=== PATIENT | male | born 1945 | race Caucasian/White ===

== ENCOUNTER 2018-08-11 13:25 | Inpatient (IN) ==
[2018-08-11] MEDS ORDERED: NS 1,000 ML IV SCH (16:15)
[2018-08-11] MEDS ORDERED: ZOFRAN IV PRN (16:15)
[2018-08-11] MEDS ORDERED: DUONEB (A & A) INH PRN (16:18)
[2018-08-11] MEDS ORDERED: LEVOPHED 8 MG in D5 1/2 NS 250 ML IV SCH (16:30)
[2018-08-11] MEDS ORDERED: ZYVOX 600 MG/D5W 600 MG/300 ML IVPB IV SCH (17:00)
--- NOTE | 2018-08-11 17:09 | Diag Imaging Result Doc PS360 ---
EXAM: CHEST-PORTABLE HISTORY: Pneumonia TECHNIQUE: 06/24/2018 COMPARISON: None. FINDINGS: The lungs are well expanded. The heart is not enlarged. The vessels are not distended. There are dense infiltrates in the mid and lower left lung and in the mid right lung. There are smaller infiltrates in the right lung base. No effusion identified. IMPRESSION: Bilateral pneumonia I'v Electronically signed by Alfie Mustafa 08/11/2018 5:07 PM
[2018-08-11 17:11] LABS: INR 1.73; PROTIME 21.5 Seconds (11.0-16.0)
[2018-08-11 17:12] LABS: PTT 41.5 Seconds (22.3-41.8)
[2018-08-11 17:15] LABS: BASO# 0.02 X1000 (0.0-0.2); BASO% 0.1 % (0.0-0.8); EOS# 0.04 X1000 (0.0-0.7); EOS% 0.1 % (0.0-10.0); HEMATOCRIT 28.9 % (42.0-52.0); IMM GRAN# 0.45 X1000 (0.0-0.04); IMM GRAN% 1.6 % (0.0-0.5); LYMPH# 0.78 X1000 (1.2-3.4); LYMPH% 2.8 % (20.5-51.1); MCH 20.2 PG (27-31); MCHC 27.7 g/dL (33-37); MCV 72.8 FL (81-99); MONO# 1.34 X1000 (0.11-0.59); MONO% 4.8 % (1.7-9.3); MPV 8.9 FL (7.4-10.4); NEUT# 25.18 X1000 (1.4-6.5); NEUT% 90.6 % (42.2-75.2); PLT 572 X1000 (130-400); RBC 3.97 XMIL (4.7-6.1); RDW 20.6 % (11.5-14.5); WBC 27.81 X1000 (4.8-10.8)
[2018-08-11] MEDS ORDERED: VANCOMYCIN 1 GM/NS 1 GM/250 ML IVPB IV ONE (17:20)
[2018-08-11 17:24] LABS: MAGNESIUM 1.9 mg/dL (1.5-2.7)
[2018-08-11] MEDS ORDERED: VANCOMYCIN IV PER PHARMACY MISC SCH (17:30)
[2018-08-11 18:07] LABS: ALLEN TEST YES; BE 3.1 mmoll (-3.0-3.0); BLOOD TYPE ARTERIAL; HCO3-(ACT) 27.3 mmoll (20.0-26.0); METHB 1.2 % (0.0-1.5); O2(CT) 10.5 mL/dL (15.0-23.0); O2HB 90.2 % (95.0-99.0); PCO2(98.6) 36 mmHg (35-45); PO2(98.6) 59 mmHg (60-100); SAMPLE BLOOD; SAO2 93.9 % (95.0-100.0); THB 8.2 g/dL (11.5-17.4); pH(98.6) 7.48 (7.35-7.45)
[2018-08-11 18:09] LABS: MODALITY CANNULA
[2018-08-11 18:20] LABS: ANISOCYTOSIS 3+; BANDS 2 % (0-1); LYMPHS 2 % (21-51); MONO 2 % (1-9); SEGS 94 % (42-75)
[2018-08-11 18:21] LABS: HYPOCHROM 3+; MICROCYTOSIS 1+; TARGET CELLS 1+
[2018-08-11] MEDS: AZACTAM 2 GM in NS 100 ML IV SCH (18:29)
[2018-08-11] MEDS: NS 1,000 ML IV SCH (18:30)
[2018-08-11] MEDS: ZYVOX 600 MG/D5W 600 MG/300 ML IVPB IV SCH (18:36)
[2018-08-11 18:38] LABS: URINE SOURCE CATH
[2018-08-11 18:44] LABS: BILIRUBIN URINE NEGATIVE (NEGATIVE); BLOOD URINE MODERATE (NEGATIVE); COLOR YELLOW; GLUCOSE URINE NEGATIVE (NEGATIVE); KETONE URINE NEGATIVE (NEGATIVE); LEUKOCYTES URINE LARGE (NEGATIVE); NITRITE URINE NEGATIVE (NEGATIVE); PH URINE 6.5; PROTEIN URINE 100 mg/dL (NEGATIVE); TURBIDITY URINE HAZY (CLEAR); UROBILINOGEN URINE NORMAL (NORMAL)
[2018-08-11 18:47] LABS: UR EPITHELIAL CELLS <10 /HPF (<10); URINE BACTERIA 4+ /HPF; URINE RBC TNTC /HPF (<10); URINE WBC TNTC /HPF (<10)
[2018-08-11 18:57] LABS: URINE CRYSTALS CA OXALATE PRESENT; URINE YEAST NONE SEEN
[2018-08-11] MEDS: ATROVENT NEB INH SCH ×2 (19:24→23:08)
[2018-08-11] MEDS: XOPENEX NEB INH SCH ×2 (19:24→23:08)
[2018-08-11] MEDS: PULMICORT INH SCH (19:24)
[2018-08-11] MEDS ORDERED: DUONEB (A & A) INH SCH (19:30)
--- NOTE | 2018-08-11 19:32 | INFECTIOUS DISEASE CONSULT REP ---
DATE: 08/11/2018 CONCLUSION: Mr. Schulte has bilateral pneumonia with dense infiltrates seen on chest x-ray. There is a leukocytosis, and he is having increased drainage and size to his buttock ulcers. There is a fungal dermatitis noted to his bilateral groin and anterior upper thigh areas. RECOMMENDATIONS: We agree with the use of aztreonam 2 g IV every 8 hours, and Zyvox 600 mg IV every 12 hours. We have taken wound cultures of the left hip and the decubitus ulcers to his buttocks. We will also order clotrimazole cream to be applied to the reddened areas to his groin b.i.d. These plans have been discussed with and recommended by Dr. Guevara. DISCUSSION: Mr. Schulte has an extensive and complicated medical history which mainly started with a dissecting aortic aneurysm. He suffered an infarct during the repair of that dissection, and has been paraplegic from the waist down ever since. We have treated him in the office multiple times for left hip osteomyelitis, as well as for the wounds to his buttocks. At this point, those wounds are larger and have more drainage than was last seen on his visit to our office. REVIEW OF SYSTEMS: Constitutional: He denies any recent fever or weight changes, but has had a decrease in appetite. Endocrine: He denies any diabetes or thyroid disorders. Cardiovascular: He denies any coronary artery disease history, chest pain, or palpitations. He does have a history of atrial fibrillation, and is on chronic Xarelto and Amiodarone. Respiratory: He has had pneumonia in the past. Some mild shortness of breath with a mild cough that started in the last couple of days. Abdomen: He has a colostomy which was put in for diversion in order to protect his sacral wound. Yesterday, he started having some diarrhea. Positive for gastroesophageal reflux disease. : He has had urinary tract infections and there is a suprapubic catheter in place with a bedside bag. He denies any bladder spasms or feeling to the tract. Integumentary: There are 3 separate wounds to the buttocks area, some of which have extensive tracking. There is also a left hip incision from previous surgery which is draining. These have gotten worse per patient's . He has had a fungal rash around the scrotum and upper thighs for about a week. Musculoskeletal: Right hip is externally rotated with bilateral footdrop. He denies any pain from the waist down; however, he states that the area of the scar in his back is often painful. He does use a TENS unit at home for back pain. No upper extremity pain or joint problems. He is weaker than usual in his upper extremities. Psychiatric: He denies a history of any depression or anxiety; however, he is taking an antidepressant. Hematology/Oncology: No history of cancer or blood transfusions. PAST MEDICAL HISTORY: 1. 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 2. Chronic atrial fibrillation with Xarelto and Amiodarone. 3. Recurrent left hip osteomyelitis. 4. Hyperlipidemia. 5. Gastroesophageal reflux disease. 6. Multiple pressure ulcers to the sacrum and gluteal folds. 7. Chronic obstructive pulmonary disease, with 60 pack year smoking history. PAST SURGICAL HISTORY: 1. Suprapubic catheter insertion. 2. Aortic dissection repair. 3. Multiple left hip drain placements. 4. Left tibial fracture repair. 5. Tonsillectomy. 6. Diverting colostomy. 7. LASIK. 8. Bilateral cataracts. INFECTIOUS DISEASE: He does have a history of pneumonia, urinary tract infection, and a previous history of methicillin-resistant Staphylococcus aureus, although he and his do not remember where that MRSA grew. SOCIAL HISTORY: He lives at home with his , daughter, son-in-law, and 3 grandchildren. He quit smoking in 2011 and has a 60 pack-year smoking history. His is very supportive and helpful, and changes his bandages and packs his wounds daily. He also has home health visits twice a week. No alcohol or illicit drug use. FAMILY HISTORY: His brother has coronary artery disease and is s/p CABG. LABORATORY AND X-RAY: Today, his white count is 27.81, hemoglobin 8, platelet count 572,000. Creatinine has not yet been resulted; however, a creatine kinase is 8. His blood gas today showed a pH of 7.48, pCO2 36, pO2 59, HC03 27.3, on 5 L nasal cannula. Previously, his left buttock and left hip wounds had grown the same Enterobacter cloacae and Enterococcus faecalis. Blood and wound cultures from this admission are pending. Chest x-ray today shows bilateral pneumonia with dense infiltrates in the mid and lower left lung and in the mid right lung. ALLERGIES: Zosyn causes swelling. MEDICATIONS: Home medications most recently include: 1. Cordarone. 2. Finasteride. 3. Xarelto. 4. Carafate. 5. Gabapentin. 6. Oxybutynin. 7. Omeprazole. 8. Tessalon Perles. 9. Singulair. 10. Lexapro. 11. Fluconazole. 12. OTC vitamins. PHYSICAL EXAMINATION: Vital Signs: Temperature is 98.7 degrees, pulse rate 98, respiratory rate 21, blood pressure 89/57, and O2 saturation is 92% on 5 L nasal cannula. General: This is a chronically ill-appearing, elderly gentleman. He is lying in the bed currently in no acute distress. HEENT: Atraumatic, normocephalic. Oral mucous membranes are pink and moist. Conjunctivae are pale. Neck: Supple. Trachea is midline. Cardiovascular: Normal sinus rhythm with occasional PAC's on the monitor. Respiratory: Lung sounds are clear in the upper lobes, diminished in the bases. Abdomen: Soft, round. Bowel sounds are active. There is a colostomy in place with brown soft stool noted in the bag. Integumentary: Skin is cool, dry, and pale. Sacral wounds are erythematous and draining some serosanguineous fluid. The left hip wound is clean along the incision line without erythema, but there is depth and packing with bloody drainage noted. : There is a suprapubic catheter. The site is without edema or erythema. No purulent drainage noted. Neurologic: He is awake, alert, and appropriate, but forgetful. Upper extremities have some mild, generalized weakness. Paraplegia from the waist down. Thank you for allowing us to see Mr. Schulte. Dictated by ANILA Bowman for Adán Guevara MD This chart was documented by, ANILA Bowman and accurately reflects the services performed, treatment plan and medical decisions as attested by the providers signature Adán Guevara MD. cc: Adán Guevara MD [facility]
[2018-08-11] MEDS: LOTRIMIN 1% CREAM TOP SCH (21:13)
--- NOTE | 2018-08-11 21:54 | HISTORY AND PHYSICAL ---
ADDENDUM: The patient was seen and examined by me [id number]. Physical exam has been done by me and the nurse practitioner. Vital signs were reviewed. I do not have an x-ray or lab work at this moment, but this patient has been short of breath and coughing for the past 2 days. At this moment, he is on nasal cannula 4 L. His is at the bedside. As per the , all of the symptoms started yesterday with cough, shortness of breath, and weakness. He went to [facility] and apparently they did a CT scan that showed pneumonia, so they transferred this patient to [facility], and he was placed in the intensive care unit. He has been placed on aztreonam and Zyvox. I will order a consult by Infectious Disease Department and wound care. On my physical exam, he shows some coarse breath sounds bilaterally, probably some rhonchi at the bases. His abdomen is soft. He has an ostomy bag with liquid stools. Apparently, he has been having diarrhea since yesterday as well. As per the , his urine output has been stable, but she noticed some blood yesterday and the day before yesterday, but not today. Today, the urine looks clear. We will start this patient on a diet, full liquid diet. We will put this patient on antibiotics, IV fluids. We will get a full lab work and x-ray. Like I mentioned before, Infectious Disease Department and wound care will be consulted. He is allergic to Zosyn. We will monitor this patient closely, breathing treatment and oxygen supplementation. I agree with the rest of the nurse practitioner's assessment and plan. cc: Armando Chapa MD
[2018-08-12] MEDS: NS 1,000 ML IV SCH ×3 (01:04→17:12)
[2018-08-12] MEDS: AZACTAM 2 GM in NS 100 ML IV SCH ×3 (01:04→17:12)
[2018-08-12] MEDS: XOPENEX NEB INH SCH ×6 (03:17→23:35)
[2018-08-12] MEDS: ATROVENT NEB INH SCH ×6 (03:17→23:35)
[2018-08-12] MEDS: ZYVOX 600 MG/D5W 600 MG/300 ML IVPB IV SCH ×2 (04:31→17:13)
[2018-08-12 05:43] LABS: BASO# 0.02 X1000 (0.0-0.2); BASO% 0.1 % (0.0-0.8); EOS# 0.01 X1000 (0.0-0.7); HEMATOCRIT 26.1 % (42.0-52.0); HEMOGLOBIN 7.3 g/dL (14.0-18.0); IMM GRAN# 0.41 X1000 (0.0-0.04); IMM GRAN% 1.3 % (0.0-0.5); LYMPH# 0.56 X1000 (1.2-3.4); LYMPH% 1.8 % (20.5-51.1); MCH 20.1 PG (27-31); MCV 71.9 FL (81-99); MONO# 1.08 X1000 (0.11-0.59); MONO% 3.4 % (1.7-9.3); MPV 9.1 FL (7.4-10.4); NEUT# 29.46 X1000 (1.4-6.5); NEUT% 93.4 % (42.2-75.2); PLT 530 X1000 (130-400); RBC 3.63 XMIL (4.7-6.1); RDW 20.4 % (11.5-14.5); WBC 31.54 X1000 (4.8-10.8)
[2018-08-12 05:47] LABS: INR 1.47; PROTIME 18.9 Seconds (11.0-16.0)
[2018-08-12 05:48] LABS: PTT 42.7 Seconds (22.3-41.8)
[2018-08-12 05:59] LABS: AGAP 12; ALB/GLOB RATIO 0.5; ALBUMIN 1.9 g/dL (3.5-5.0); ALKALINE PHOSPHATASE 129 U/L (32-122); BUN 25 mg/dL (8-22); CALCIUM 8.9 mg/dL (8.8-10.2); CHLORIDE 102 mmol/L (98-107); COSMO 278; CREATININE 0.4 mg/dL (0.7-1.2); ESTIMATED GFR > 60; GLUCOSE 102 mg/dL (70-104); GOT 15 U/L (10-34); GPT 12 U/L (10-44); POTASSIUM 3.9 mmol/L (3.5-5.1); SODIUM 137 mmol/L (136-145); TCO2 23 mmol/L (25-35); TOTAL BILIRUBIN 0.23 mg/dL (0.20-1.00); TOTAL PROTEIN 5.6 g/dL (6.3-8.3)
[2018-08-12 06:21] LABS: LYMPHS 2 % (21-51); MONO 3 % (1-9); SEGS 95 % (42-75)
[2018-08-12 07:36] LABS: ALLEN TEST YES; BE 1.7 mmoll (-3.0-3.0); BLOOD TYPE ARTERIAL; HCO3-(ACT) 26.3 mmoll (20.0-26.0); METHB 0.7 % (0.0-1.5); O2(CT) 9.7 mL/dL (15.0-23.0); O2HB 96.4 % (95.0-99.0); PCO2(98.6) 34 mmHg (35-45); PO2(98.6) 100 mmHg (60-100); SAMPLE BLOOD; pH(98.6) 7.48 (7.35-7.45)
[2018-08-12 07:42] LABS: MODALITY VENTIMASK
[2018-08-12] MEDS: PULMICORT INH SCH ×2 (07:53→19:42)
--- NOTE | 2018-08-12 07:55 | HISTORY AND PHYSICAL ---
PRIMARY CARE PROVIDER: Dr. Kenji Melendez INFECTIOUS DISEASE: Dr. Adán Guevara CHIEF COMPLAINT: Shortness of breath and cough, diarrhea. HISTORY OF PRESENT ILLNESS: Mr. Schulte is a 72-year-old male who was most recently from discharged from our service back in July 2017 from septic shock secondary to a left hip infection, left hip osteomyelitis with septic arthritis. Back in April 2018. He had a cystoscopic exam with bladder irrigation for a neurogenic bladder with indwelling suprapubic tube with history of gross hematuria and anticoagulated, performed by Dr. Kentrell Buitrago. Since that time, he developed a cough. He was on antibiotics per Dr. Guevara for his left hip. He had also underwent a barium swallow and they felt like that he had some acid reflux. He went to an ENT who put him on Singulair. His cough subsided and starting on Saturday, his cough came back. He started having shortness of breath as well as some diarrhea in his colostomy. His last antibiotic was on 05/21/2018. I believe it was with p.o. Bactrim. He has denied any fever, chills, nausea, or vomiting, decreased appetite. He went to [facility] where ED consulted with his primary care provider, Dr. Melendez, who wanted him transferred to [facility] for Infectious Disease consult. He was shown to have sepsis there with a bilateral pneumonia. We are currently pending our laboratory and diagnostic data. We will start him on broad-spectrum antibiotics. Consult Dr. Guevara as well as Wound Care. PAST MEDICAL HISTORY: 1. 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 2. Aortic dissection status post repair. 3. Chronic atrial fibrillation. 4. Recurrent osteomyelitis of the left hip. 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 5. Multiple pressure ulcers in the vicinity of the sacrum and gluteal field folds. Also has a new one on his left ankle. SURGICAL HISTORY: 1. Aortic dissection repair. 2. Left tibial fracture repair. 3. Multiple drain placements of the left hip. 4. Tonsillectomy. 5. Diverting colostomy for hygiene around sacral wounds. SOCIAL HISTORY: Quit smoking over 10 years ago. He has a very supportive at the bedside. No current tobacco, alcohol or illicit drug use. He does have home health come out twice a week. He goes to the [facility] 6 weeks at [place] with Dr. Arambula. FAMILY HISTORY: Noncontributory. REVIEW OF SYSTEMS: A 14 point review of systems completely negative except for those mentioned in HPI. ALLERGIES: Zosyn. HOME MEDICATIONS: Have not been reconciled. PHYSICAL EXAMINATION: VITAL SIGNS: Have not been placed in the computer. GENERAL: Mr. Schulte is a pleasant 72-year-old male who is lying in ICU bed 1 in no acute distress. He is chronically ill-appearing. HEENT: Head is atraumatic, normocephalic. PERRL. NECK: Supple. Trachea midline. No JVD. CARDIOVASCULAR: S1-S2 noted. No murmurs, gallops, or rubs. PULMONARY: Bilateral rhonchi throughout all calzada. GASTROINTESTINAL: Colostomy bag noted with brown liquid. Belly was nondistended, soft, positive bowel sounds 4 quadrants. Suprapubic catheter is also noted draining clear yellow urine. SKIN: He does have a sacral wound that is completely covered along with a left hip wound that is completely covered. There is no drainage noted to the left hip. He does have some serosanguineous appearing drainage on his sacrum. He does have a right ankle that has a bandage over it that is clean, dry, and intact. EXTREMITIES: No clubbing, no cyanosis. Pulses diminished. He does have what appears to have footdrop. DIAGNOSTIC DATA: Pending. LABORATORY DATA: Pending. ASSESSMENT AND PLAN: 1. Per report, bilateral pneumonia from [facility]. check Xray. We will continue with aztreonam and Zyvox IV, aggressive IV hydration. We will recheck a lactate. Consult Dr. Guevara. 2. Sepsis per [facility] report. The patient was at their facility and did have a high white count, a positive lactate and was hypotensive. Again, we will continue to monitor. Continue broad-spectrum antibiotics and aggressive hydration. 3. Left hip osteomyelitis. I believe it is chronic with septic arthritis. Question if this is a recurrent infection. Again, we will consult Dr. Guevara. Continue broad- spectrum antibiotics. Check a left hip x-ray. 4. Multiple pressure ulcers on the sacrum as well as the left ankle. We will consult Wound Care. 5. Chronic atrial fibrillation. We will continue home medications when reconciled. 6. History of aortic dissection. No abdominal or chest pain. 7. Anemia. 8. Paraplegia. Physical therapy has been consulted. 9. Further recommendation to follow physician evaluation, laboratory, and diagnostic data. Dictated by ANILA Parra for Armando Chapa MD cc: MD Kenji Rodrigues MD Omar J. Sosa-Chirinos, MD MTDD
[2018-08-12] MEDS: LOTRIMIN 1% CREAM TOP SCH ×2 (08:01→20:11)
--- NOTE | 2018-08-12 09:31 | Diag Imaging Result Doc PS360 ---
EXAM: HIP 1 VIEW LEFT HISTORY: recurrent osteomylelitis TECHNIQUE: Left hip two views COMPARISON: None. FINDINGS: The femoral shaft is superiorly placed and rotated from its normal position. The femoral head is not identified. There is deformity to the acetabulum. No orthopedic hardware. There are surgical clips in the lower abdomen and overlying the pelvis. IMPRESSION: Long-standing deformity to the left hip Electronically signed by Alfie Mustafa 08/12/2018 9:28 AM
--- NOTE | 2018-08-12 11:06 | PROGRESS NOTE ---
DATE: 08/12/2018 SUBJECTIVE: The patient reports breathing a little bit better. Denies any fever or chills. The patient has not been started on pressors yet. OBJECTIVE: Vital Signs: Temperature 97.3 degrees, heart rate 94, respiratory rate 26, blood pressure 104/43, O2 saturation 100% on nasal cannula at 5 L. General Examination: This is a chronically ill appearing, 72-year-old, male, lying in bed, in no acute distress. HEENT: Head is normocephalic and atraumatic. Mucous membranes dry. Neck: No JVD noted. No carotid bruits. No lymphadenopathy. No thyromegaly. Cardiovascular Examination: S1 and S2 heard. No murmurs, gallops, or rubs. Regular rate and rhythm. Respiratory Examination: Rhonchi is noted in both bases. Patient is not using any accessory muscles or having work of breathing. Abdomen: Soft. Colostomy bag noted. There is also suprapubic catheter with yellow urine. Skin: The patient has a sacral wound covered with dressing and also a left heel wound that is completely covered as well. There is no drainage noted. The patient does have a right ankle that has a bandage over it that is clean. Extremities: No clubbing or cyanosis. There is marked muscle wasting noted. The patient is paraplegic from the waist to below. Neurological Examination: The patient is alert and oriented x3. Moves 4 extremities. Laboratory Data: White count 31.54, hemoglobin 7.3, hematocrit 26.1, platelets 530,000. ABG shows pH 7.48, with pCO2 of 34, PO2 110. BMP shows creatinine 0.4, carbon dioxide 23, albumin 1.9. ASSESSMENT AND PLAN: 1. Septic shock secondary to bilateral pneumonia. That is why this patient was transferred from [facility] to here. As per Dr. Adán Guevara recommendation, patient is on Zyvox intravenous and also aztreonam. White cell count is still elevated. We will continue with the same management. We will check CBC daily. 2. Left hip osteomyelitis. I think he has a chronic infection of that. The patient is on antibiotics as above. We will continue to monitor. 3. Multiple pressure ulcers on the sacrum as well as the left ankle. Wound care nurse has been consulted. 4. Chronic atrial fibrillation. We will continue home medications. 5. History of aortic dissection. No abdominal or chest pain. 6. History of aortic dissection following paraplegia, stable. 7. Anemia of chronic disease. Hemoglobin has dropped to 7.3. We will continue to check CBC daily and if hemoglobin continues to drop, we will transfuse 2 units of blood. 8. Disposition. We will continue to monitor this patient here in the intensive care unit. cc: Carlos Shaver MD
[2018-08-12] MEDS: DITROPAN XL PO SCH (11:42)
[2018-08-12] MEDS: TYLENOL PO PRN (15:21)
--- NOTE | 2018-08-12 18:20 | INFECTIOUS DISEASE PROGRESS NO ---
DATE: 08/12/2018 HISTORY OF PRESENT ILLNESS: The patient has a bilateral pneumonia, multiple infected decubitus ulcers and probable chronic left hip arthritis. MEDICATIONS: The patient is on a combination of Zyvox and aztreonam. This is day 1 of treatment. PHYSICAL EXAMINATION: Vital Signs: Temperature is 99, pulse 86, respirations 21, blood pressure 108/62. General: This is an ill-appearing elderly male. He is in no acute distress. Head/eyes/ears/nose/throat: He can hear my spoken words and see near objects. He does not have any white coating to his tongue. Neck: No pain with movement. Lungs: Clear to auscultation. Cardiovascular: The patient's heart rate is regular with occasional premature beats. Abdomen: Soft and nontender. The patient has a colostomy in place and a suprapubic tube in place also. Integument: The patient has multiple infected decubiti. They have been packed and also covered with a dressing. Neurologic: The patient is paraplegic. It occurs from the waist distally. LAB AND X-RAY: The CBC today shows a white count of 31,540, hemoglobin of 7.3, and platelet count of 530,000. Creatinine is 0.4. GFR is greater than 60. Blood gases show a pH of 7.48, a PO2 of 100, pCO2 of 34. Urinalysis showed white cells and bacteria. Sputum/blood/urine plus wound cultures are pending. Chest x-ray shows bilateral infiltrates. An x-ray of the left hip shows a deformity which could be due to septic arthritis. ASSESSMENT AND PLAN: The patient has pneumonia, infected decubitus ulcers and a urinary tract infection. The plan is to continue the current antimicrobial regimen pending culture results. COMORBIDITY: Paraplegia, gastroesophageal reflux disease. cc: Adán Guevara MD MTDD
[2018-08-12] MEDS: XARELTO PO SCH (20:15)
[2018-08-12] MEDS: NEURONTIN PO SCH (20:15)
[2018-08-12] MEDS: SANTYL OINT TOP SCH (20:15)
[2018-08-12] MEDS: ZINC SULFATE PO SCH (20:15)
[2018-08-12] MEDS: CARAFATE PO SCH (20:15)
[2018-08-12] MEDS: SINGULAIR PO SCH (20:15)
[2018-08-12] MEDS ORDERED: LACTOSE REDUCED FOOD PO SCH (21:00)
[2018-08-13] MEDS: AZACTAM 2 GM in NS 100 ML IV SCH ×3 (01:12→16:24)
[2018-08-13] MEDS: NS 1,000 ML IV SCH (01:12)
[2018-08-13] MEDS: TYLENOL PO PRN (03:05)
[2018-08-13] MEDS: XOPENEX NEB INH SCH ×6 (03:28→23:18)
[2018-08-13] MEDS: ATROVENT NEB INH SCH ×6 (03:29→23:18)
[2018-08-13 05:59] LABS: ALLEN TEST YES; BLOOD TYPE ARTERIAL; HCO3-(ACT) 20.2 mmoll (20.0-26.0); METHB 1.1 % (0.0-1.5); O2(CT) 11.4 mL/dL (15.0-23.0); O2HB 94.7 % (95.0-99.0); PCO2(98.6) 29 mmHg (35-45); PO2(98.6) 80 mmHg (60-100); SAMPLE BLOOD; SAO2 97.4 % (95.0-100.0); THB 8.5 g/dL (11.5-17.4)
[2018-08-13 06:00] LABS: MODALITY NRB
[2018-08-13] MEDS: PRILOSEC PO SCH (06:01)
[2018-08-13] MEDS: ZYVOX 600 MG/D5W 600 MG/300 ML IVPB IV SCH ×2 (06:01→16:30)
[2018-08-13 06:09] LABS: BASO# 0.08 X1000 (0.0-0.2); BASO% 0.4 % (0.0-0.8); EOS# 0.01 X1000 (0.0-0.7); HEMATOCRIT 28.9 % (42.0-52.0); HEMOGLOBIN 8.1 g/dL (14.0-18.0); IMM GRAN# 1.23 X1000 (0.0-0.04); IMM GRAN% 5.9 % (0.0-0.5); LYMPH# 0.51 X1000 (1.2-3.4); LYMPH% 2.5 % (20.5-51.1); MCH 20.3 PG (27-31); MCV 72.4 FL (81-99); MONO% 5.8 % (1.7-9.3); MPV 8.6 FL (7.4-10.4); NEUT# 17.78 X1000 (1.4-6.5); NEUT% 85.4 % (42.2-75.2); PLT 681 X1000 (130-400); RBC 3.99 XMIL (4.7-6.1); RDW 20.5 % (11.5-14.5); WBC 20.81 X1000 (4.8-10.8)
[2018-08-13 06:22] LABS: AGAP 15; BUN 20 mg/dL (8-22); CALCIUM 8.7 mg/dL (8.8-10.2); CHLORIDE 103 mmol/L (98-107); COSMO 276; CREATININE 0.4 mg/dL (0.7-1.2); ESTIMATED GFR > 60; GLUCOSE 153 mg/dL (70-104); POTASSIUM 3.4 mmol/L (3.5-5.1); SODIUM 135 mmol/L (136-145); TCO2 17 mmol/L (25-35)
[2018-08-13] MEDS ORDERED: LASIX IV ONE ×2 (07:12→07:56)
--- NOTE | 2018-08-13 07:24 | Diag Imaging Result Doc PS360 ---
EXAM: CHEST-PORTABLE INDICATION: Hypoxia,Dyspnea TECHNIQUE: One view COMPARISON: 08/11/2018 FINDINGS: There has been interval worsening of the infiltrate on the right. Now the entire right lung is involved. The infiltrate at the left lower lung zone is approximately stable. No other new consolidations are identified. The cardiac silhouette appears more prominent, likely due to magnification from AP technique. IMPRESSION: Interval worsening on the right as described. Electronically signed by Igor Mendoza 08/13/2018 7:22 AM
[2018-08-13] MEDS: PULMICORT INH SCH ×2 (07:57→19:26)
--- NOTE | 2018-08-13 08:50 | PROGRESS NOTE ---
DATE: 08/13/2018 SUBJECTIVE: As per nursing staff overnight, patient started complaining of shortness of breath. His oxygen needs went up and now he is requiring BiPAP. We think this patient is volume overloaded. He has received 1 dose of Lasix already. Also, he was started on Levophed just today. The patient also reports feeling more short of breath. OBJECTIVE: Vital Signs: Temperature 97.8 degrees, heart rate 112, respiratory rate 27, blood pressure 97/59, O2 saturation 95% on BiPAP mask. General Examination: A chronically ill- appearing 72-year-old male, lying in bed, in no acute distress. HEENT: Head is normocephalic, atraumatic. Mucous membranes dry. Neck: No JVD noted. No carotid bruits. No lymphadenopathy. No thyromegaly. Cardiovascular: S1, S2 heard. Tachycardic. No murmurs, gallops, or rubs noted. Regular rate and rhythm. Respiratory: Definitely there are more crackles and rhonchi in both pulmonary calzada, mostly noted in both bases. Patient is not using any accessory muscles or having work of breathing. Abdomen: Soft, nontender to palpation. Colostomy bag noted. There is a suprapubic catheter with yellowish urine. Extremities: There is no clubbing or cyanosis. Marked muscle wasting noted. Patient is paraplegic from the waist below. Neurological: Patient is alert and oriented x3. The patient moves upper extremities only. LABORATORY DATA: White cell count 20.81, hemoglobin 8.1, hematocrit 48.9, platelets 681,000. ABG that shows pH 7.42 with pCO2 29, PO2 80. Potassium 3.4. Normal creatinine. ASSESSMENT AND PLAN: 1. Septic shock secondary to bilateral pneumonia. Patient's oxygen needs are getting higher but the white cell count is getting better. Dr. Adán Guevara from Infectious Disease is following with this patient and he is directing antibiotics. Currently, he is on Zyvox and aztreonam. As we mentioned before, white cell count is still elevated but better in comparing with yesterday. 2. Acute respiratory failure secondary to bilateral pneumonia and volume overload. Patient has been started on Lasix 80 mg IV this morning and will continue 40 mg IV q.12 hours. In order to to have a better visualization of the lung anatomy we are going to order a CT of the chest without contrast and we will go from there. We are going to consult Pulmonary as well. 3. Multiple pressure ulcers in the sacrum as well as the left ankle, aware. Wound Care has been consulted. 4. Chronic atrial fibrillation. At this point, patient's heart rate is well controlled. We will continue to monitor. 5. History of aortic dissection following paraplegia, stable. 6. Anemia of chronic disease. Hemoglobin is 8.1. We will continue to monitor CBC. DISPOSITION: The patient is getting worse today, requiring more oxygen supplementation. He has developed pulmonary edema, so at this point we are going to continue with the same management. We will keep this patient in intensive care unit. cc: Carlos Shaver MD MTDD
[2018-08-13] MEDS: SANTYL OINT TOP SCH (08:53)
[2018-08-13] MEDS: LOTRIMIN 1% CREAM TOP SCH ×2 (08:54→20:47)
[2018-08-13] MEDS: NEURONTIN PO SCH ×2 (09:29→20:46)
[2018-08-13] MEDS: ZINC SULFATE PO SCH ×2 (09:29→20:46)
[2018-08-13] MEDS: DITROPAN XL PO SCH (09:29)
[2018-08-13] MEDS: VITAMIN D PO SCH (09:29)
[2018-08-13] MEDS: CORDARONE PO SCH (09:29)
[2018-08-13] MEDS: MAALOX PLUS LIQUID PO SCH (09:29)
[2018-08-13] MEDS: PROSCAR PO SCH (09:29)
[2018-08-13] MEDS: CARAFATE PO SCH ×2 (09:30→20:46)
[2018-08-13] MEDS ORDERED: AMIDATE ONE (10:33)
[2018-08-13] MEDS ORDERED: ZEMURON ONE (10:34)
[2018-08-13] MEDS: DIPRIVAN 1% 1,000 MG/100 ML BOTTLE IV SCH ×3 (10:57→22:58)
[2018-08-13] MEDS ORDERED: CARDIZEM IV ONE (11:33)
[2018-08-13] MEDS ORDERED: CARDIZEM 125/NS 125 MG/125 ML IVPB IV SCH (11:45)
--- NOTE | 2018-08-13 11:46 | INFECTIOUS DISEASE PROGRESS NO ---
DATE: 08/13/2018 PRESENT ILLNESS: The patient has a bilateral pneumonia which appears to be getting worse. He also has multiple infected decubitus ulcers and probably he has infected left hip arthritis. MEDICATIONS: The patient is on a combination of Zyvox and aztreonam. This is day 2 of treatment with both of those agents. PHYSICAL EXAMINATION: Vital Signs: Temperature is 98 degrees, pulse 112, respirations 33, blood pressure is 112/70. General: This is an ill-appearing elderly male. He is in no acute distress. He is been intubated. Head/eyes/ears/nose/throat: As mentioned above, patient has an endotracheal tube in place. There is no drainage from the nose or ears. Neck: The movement of the neck did not seem to cause the patient any distress. Lungs: There were bilateral rhonchi. Cardiovascular: Heart rate is regular. Abdomen: Soft and nontender. Integument: The patient has multiple wounds in the pelvic area. The wounds have dressings on them, which appear intact. Neurologic: The patient did not respond to verbal stimuli. He is paraplegic. LABORATORY AND X-RAY: CBC today shows a white count of 20,810, hemoglobin 8.1, and platelet count 681,000. Blood gases show a pH of 7.4, PO2 of 80 and a pCO2 of 29. Creatinine is 0.4. GFR is greater than 60. Chest x-ray shows worsening of the right lung infiltrate. The left lung infiltrate is stable. Cultures from the urine and the patient's cutaneous ulcers are growing gram- negative rods. Blood cultures are negative. ASSESSMENT AND PLAN: 1. I am going to continue with aztreonam in view of the fact that the patient has many cultures with gram-negative rods. I am also going to continue with Zyvox because the patient appears to have pneumonia and that may have gram-negative rods also, but it could also have a gram positive cocci, such as MRSA. A sputum for culture has been ordered and is pending. 2. Comorbidities: He is paralyzed from the waist down. He has appears to have chronic hip osteomyelitis. He also has gastroesophageal reflux disease and COPD due to cigarette smoking. cc: Adán Guevara MD
[2018-08-13] MEDS: ALBUMIN 25% IV SCH ×3 (12:09→21:59)
--- NOTE | 2018-08-13 12:17 | Diag Imaging Result Doc PS360 ---
CHEST-PORTABLE - 08/13/2018 10:40 AM INDICATION: ett placement COMPARISON: 6:11 AM FINDINGS: There is an endotracheal tube in good position at T4. There is a nasogastric tube with the tip in the stomach. There is cardiomegaly. There are significant bilateral infiltrates. There are small pleural effusions. IMPRESSION: Good endotracheal tube and nasogastric tube placement. Electronically signed by Dago Houston 08/13/2018 12:15 PM
--- NOTE | 2018-08-13 12:20 | PULMONOLOGY CONSULTATION ---
DATE: 08/13/2018 REQUESTING PHYSICIAN: Dr. Hernandez. REASON FOR CONSULTATION: Respiratory failure. HISTORY OF PRESENT ILLNESS: Mr. Schulte is a 72-year-old white male with paraplegia related to an abdominal aortic aneurysm repair in 2011, a 40 pack-year history for tobacco, who has difficulty with recurrent decubitus ulcers. The patient was admitted to the hospital approximately 1 year ago with septic shock from a left hip infection. The patient's reports he has been off antibiotics but continues to undergo wound care. The patient has had a barium swallow which did revealed some vallecular pooling, but without definite aspiration. Earlier in the week, he was evaluated by his home health nurse who was concerned he might have pneumonia. His oxygen saturation was dropping. The patient was sent to the emergency room at [facility] and his primary care physician referred him Shannan Cuadra for the need of Infectious Disease consult due to his decubitus ulcers and prior hip infection. The patient was in respiratory failure on presentation and was placed on Venturi mask. His oxygen requirements have continued to increase and he is now on a BiPAP at 100%. Chest x-ray reveals worsening infiltrates. PAST MEDICAL HISTORY: Problem List: 1. Abdominal aortic aneurysm repair. 2. 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 3. Chronic atrial fibrillation. 4. 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 5. Sacral decubitus ulcer. 6. Left ankle decubitus ulcer. 7. Status post tibial fracture. 8. Status post suprapubic catheter placement. 9. Tonsillectomy. 10. Status post diverting colostomy primarily for hygienic purposes of the sacral wound. SOCIAL HISTORY: The patient has a 40-pack year history for tobacco but stopped smoking in 2011 by prior admission notes. [facility] by Dr. Arambula. REVIEW OF SYSTEMS: Limited. PHYSICAL EXAMINATION: General: Reveals a chronically ill-appearing male on BiPAP with a respiratory rate of 40 in moderate work of breathing. He currently is on Levophed for blood pressure support. Vital signs: BP 103/70, heart rate 104, respiratory rate 42, oxygen saturation 99%. He has been afebrile during this hospitalization. HEENT: Pupils are equal and reactive. Oropharynx appears clear but evaluation is limited due to BiPAP placement. Neck: Supple. Chest: Reveals diffuse bilateral rhonchi. Cardiac: Increased rate, regular rhythm. Abdomen: Soft with colostomy bag in place. Ostomy appears pink. Genitourinary: Suprapubic catheter in place with mild erythema at the entrance site. Extremities: Decubitus ulcers were not examined due to patient's current respiratory status. Lower extremities appear to have chronic edema and have no muscle tone. LABORATORY DATA: Chest x-ray reveals increasing infiltrate on the right involving the entire right lung with infiltrate also seen at the left base. Urine culture reveals a gram-negative sergio. Left hip culture reveals a gram-negative sergio, buttock culture reveals a gram- negative sergio. Sputum culture is pending. White blood count 77202, hemoglobin 8.1, platelet count 681,000. Sodium 135, potassium 3.4, chloride 103, bicarbonate 17, anion gap 15, BUN 20, creatinine 0.4. Total protein 5.6, albumin 1.9. Arterial blood gas earlier this morning on non-rebreather revealed pH 7.40, pCO2 of 29, PO2 of 80. IMPRESSION: A 72-year-old with multiple cultures revealing gram negative rods, progressive pneumonia, acute hypoxemic respiratory failure, sepsis requiring vasopressors, protein calorie malnutrition. The patient has had progressive increase in oxygen requirements and will likely fail BiPAP. Currently unable to feed this patient who is already protein calorie malnourished. At this juncture, delaying intubation will make it more difficult and more risky to intubate him as his respiratory failure progresses. RECOMMENDATION: 1. Intubate patient now. 2. Collect sputum for C and S. 3. Albumin for oncotic pressure support. 4. Antibiotics under the direction of Dr. Adán Guevara. 5. Check immunoglobulin level given his severe protein calorie malnutrition. 6. Continue DVT prophylaxis. 7. Check cortisol. 8. Discussed case with the patient's . Patient's appeared shocked that he was this sick and needed to go on life support. Time spent critical care management: 1 hour cc: MD PRAVEEN Delong
[2018-08-13] MEDS ORDERED: NS 250 ML ONE (13:23)
[2018-08-13] MEDS: LANOXIN IV SCH ×3 (14:30→21:56)
[2018-08-13] MEDS: NEO-SYNEPHRINE 50 MG in NS 250 ML IV SCH ×2 (14:35→19:55)
--- NOTE | 2018-08-13 15:36 | CARDIOLOGY CONSULTATION ---
DATE: 08/13/2018 REQUESTING PROVIDER: The hospitalist service. REASON FOR CONSULTATION: Atrial fibrillation with rapid response. CHIEF COMPLAINT: Shortness of breath, confusion. HISTORY: Mr. Schulte is an unfortunate 72-year-old male, who presented for admission through the [facility], where he went in complaining of shortness of breath and documented hypoxemia. The patient's chest x-ray, was found to be abnormal, suspicious for pneumonia. The patient appeared to be in respiratory distress and hypoxemic respiratory failure. He was sent to [facility] for further care. Over here, he presented on August 11 at about 4 p.m. A chest x-ray at that time reported as bilateral pneumonia. His white count was 27,810. He did have a left shift. He was put on high-flow oxygen, and eventually he was intubated. He has developed atrial fibrillation with rapid response, and we are being called in consultation because of that. PAST HISTORY: Remarkable for a dissecting aortic aneurysm that happened in 2011 and as a result of that, he became paraplegic. This led to a number of other health issues, but the most important one being pressure sores in the sacral area and subsequently in the left hip that have required extensive treatments first at [facility] and subsequently at [facility]. Lately he has been transferred to the care of Dr. Matt Arambula and Dr. Mariam Guevara, who are managing a chronic nonhealing wound of the left hip area with osteomyelitis. He does have a neurogenic bladder. SURGICAL HISTORY: He had the aortic dissection repair complicated by the paraplegia. He suffered an accident a year or 2 ago and broke his left tibia, falling off of the wheelchair. He has had diversion colostomy. He has had tonsillectomy and the multiple surgeries related to the infected left hip area. SOCIAL HISTORY: The patient was a CPA for many years.They lived in [place], [place]. When he suffered the aortic dissection, he basically quit working. He has been to his for 40 years or so. They do have 2 grown up children. One lives here in [place] with them. The patient quit smoking some time ago. He has been on disability since the aortic dissection. FAMILY HISTORY: Really noncontributory. ALLERGIES: Penicillin and tazobactam. HOME MEDICINES: Related in the computer system include amiodarone 200 mg daily, ascorbic acid 1000 mg daily, aztreonam 2 g t.i.d. daptomycin 500 every 24 hours, finasteride 500 mg daily, gabapentin 300 twice a day, montelukast 10 mg at bedtime, omeprazole 40 daily, Xarelto 10 mg at bedtime, sucralfate 1 g twice a day, zinc gluconate. The patient has had paroxysmal atrial fibrillation in the past. This is not chronic. He has been treated with amiodarone to maintain sinus rhythm. REVIEW OF SYSTEMS: At this time is really not obtainable as he is intubated. is at the bedside, and she basically states that they have been dealing with this nonhealing pressure sore/ulcer of the left hip for a long time, and he is essentially paraplegic and depends on others to care for him. PHYSICAL EXAMINATION: Right now blood pressure is 98/49, temperature 97 degrees, pulse was 105 bpm after he converted to sinus rhythm, respirations 20. He is intubated and sedated. He is struggling some with the ventilator. They are giving him more sedation. HEENT: Appears to be pale, somewhat emaciated. Chest: Symmetrical breath sounds with diminished breath sounds at bases. I do not hear rales. Heart sounds are regular and rhythmic at the time of my examination, when he had already converted to sinus rhythm. Abdomen: Not distended. Soft. Bowel sounds diminished.Colostomy bag present. Extremities showed markedly diminished pulses. The temperature is cooler than the rest of the body. He does have some cyanosis of the big toe on the left foot. Muscle mass is markedly impaired and diminished in both legs. Neurological: He is paraplegic from the waist down. He is sedated. DIAGNOSTIC STUDIES: Blood work in addition shows sodium 135, potassium 3.4, BUN 20, creatinine 0.4. His white cell count is 20,810, hemoglobin 8.1, hematocrit 28.9. IMPRESSION: 1. Patient who has paroxysmal atrial fibrillation in the midst of bilateral pneumonia. He has developed hypoxemic respiratory failure. 2. The patient has history of aortic dissection s/p surgical repair complicated with paraplegia. 3. Patient has a pressure ulcer in the left hip, which is chronic, and he has been treated by the Infectious Disease team and by Dr. Matt Arambula. Osteomyelitis diagnosed in the past. RECOMMENDATION: At this time from Cardiology, I would suggest to continue present course of action with diltiazem., Isaac-Synephrine, resume amiodarone when feasible as he has been taking that at home. He may require some anticoagulant, and I would suggest to consider using Eliquis 5 twice a day as anticoagulation for stroke prevention. I am going to order an echocardiogram for tomorrow morning to make sure that we get a better quality image. We will be following him. cc: Humble Ojeda MD MTDD
--- NOTE | 2018-08-13 16:41 | EKG Report ---
Test Performed on : 08/13/2018 1:50:01 PM Test Reason : TACHYCARDIA Blood Pressure : / mmHG Vent. Rate : 101 BPM Atrial Rate : 101 BPM P-R Int : 168 ms QRS Dur : 096 ms QT Int : 284 ms P-R-T Axes : 049 251 222 degrees QTc Int : 368 ms Sinus tachycardia. with premature atrial complexes. Right superior axis deviation Incomplete right bundle branch block Possible Right ventricular hypertrophy Septal infarct , age undetermined Abnormal ECG When compared with ECG of 30-APR-2018 09:37, premature atrial complexes. are now present Incomplete right bundle branch block is now present Unconfirmed Result
--- NOTE | 2018-08-13 18:27 | GENERAL SURGERY CONSULTATION ---
DATE: 08/13/2018 HISTORY OF PRESENT ILLNESS: This is an unfortunate, 72-year-old gentleman, known to me. He had a repair of a thoracic abdominal aortic aneurysm in 2011 that left him with lower extremity paraplegia from a spinal infarction. His postoperative course has overall been complicated and he developed large decubitus wounds with resultant osteomyelitis of his left hip and acetabulum. He has had recommendation and has a chronic draining sinus associated with this from septic arthritis. He has been on antibiotics for many months in relation to this. He has had 2 previous surgeons, including orthopedic surgeon at [facility], who recommended a total left hip disarticulation. They have been apprehensive to undergo this and at the family's wishes, we have been managing his wounds nonoperatively with [facility]. He presents now with UTI, sepsis, pneumonia, respiratory failure. He has recently been intubated. MEDICAL/SURGICAL HISTORY: Abdominal aortic aneurysm, he had a repair of a dissection I believe. Spinal infarction. Atrial fibrillation, osteomyelitis, chronic decubitus ulcers, suprapubic catheter placement, tonsillectomy, he has a diverting colostomy. SOCIAL HISTORY: Very attentive . History of smoking, but quit recently. REVIEW OF SYSTEMS: Not obtainable given the fact that he is intubated. FAMILY HISTORY: Review and noncontributory. PHYSICAL EXAMINATION: General: He is intubated. He is not responsive. He is tachycardic with atrial fibrillation. Abdomen: Soft. Integument: Cool and mottled. Peripheral vascular, his left foot is cyanotic. His right foot seems more normal capillary refill. There is a dressing on his left second toe. There is exposed bone here. His left hip wound has got a dressing in place. LABS: I reviewed his labs. White count has been as high as 31, creatinine is 0.4, glucose 150. Lactate was 1.5 on admission. His albumin is low at 1.9. LFTs are normal. Urinalysis is positive for leukocytes, white blood cells and blood. I reviewed his chest x- ray. ASSESSMENT AND PLAN: This is a 72-year-old gentleman now who presents with sepsis from pneumonia, urinary tract infection. He has chronic decubitus wounds and history of septic arthritis. Right now his main issue is pulmonary status pneumonias. There is very grim prognosis for this gentleman. We will continue local wound care. I talked to Arely, our nurse on antibiotics. I have no plans for surgical intervention at this juncture. Were he to require an operation it would be a complete left hip disarticulation. We will continue to follow along. cc: Hector Arambula MD MTDBlanca
[2018-08-13] MEDS: XARELTO PO SCH (20:46)
[2018-08-13] MEDS: SINGULAIR PO SCH (20:46)
[2018-08-13] MEDS: LASIX IV SCH (20:52)
[2018-08-14] MEDS: NEO-SYNEPHRINE 50 MG in NS 250 ML IV SCH ×9 (00:18→23:14)
[2018-08-14] MEDS: AZACTAM 2 GM in NS 100 ML IV SCH ×2 (00:32→08:38)
[2018-08-14] MEDS: LEVOPHED 8 MG in D5 1/2 NS 250 ML IV SCH ×2 (01:33→14:57)
[2018-08-14] MEDS: ATROVENT NEB INH SCH ×6 (03:12→22:33)
[2018-08-14] MEDS: XOPENEX NEB INH SCH ×6 (03:12→22:33)
[2018-08-14] MEDS: DIPRIVAN 1% 1,000 MG/100 ML BOTTLE IV SCH ×5 (03:24→22:18)
[2018-08-14] MEDS: LANOXIN IV SCH (03:25)
[2018-08-14 04:43] LABS: ALLEN TEST YES; BE -18.4 mmoll (-3.0-3.0); BLOOD TYPE ARTERIAL; HCO3-(ACT) 10.6 mmoll (20.0-26.0); METHB 0.7 % (0.0-1.5); O2(CT) 13.1 mL/dL (15.0-23.0); O2HB 96.9 % (95.0-99.0); PCO2(98.6) 47 mmHg (35-45); PO2(98.6) 151 mmHg (60-100); SAMPLE BLOOD; SAO2 99.2 % (95.0-100.0); SRATE 14 BPM; THB 9.4 g/dL (11.5-17.4); TVOL 500 mL
[2018-08-14 04:45] LABS: MODALITY VENTILATOR; pH(98.6) 7.01 (7.35-7.45)
[2018-08-14 05:26] LABS: EOS# 0.01 X1000 (0.0-0.7); HEMOGLOBIN 8.4 g/dL (14.0-18.0); LYMPH# 1.83 X1000 (1.2-3.4); LYMPH% 4.4 % (20.5-51.1); MCH 20.7 PG (27-31); MCHC 27.1 g/dL (33-37); MCV 76.5 FL (81-99); MONO# 2.58 X1000 (0.11-0.59); MONO% 6.2 % (1.7-9.3); MPV 9.5 FL (7.4-10.4); PLT 734 X1000 (130-400); RBC 4.05 XMIL (4.7-6.1); RDW 21.3 % (11.5-14.5); WBC 41.51 X1000 (4.8-10.8)
[2018-08-14 05:27] LABS: AGAP 21; ALB/GLOB RATIO 0.6; ALBUMIN 2.1 g/dL (3.5-5.0); ALKALINE PHOSPHATASE 127 U/L (32-122); BUN 29 mg/dL (8-22); CALCIUM 8.9 mg/dL (8.8-10.2); CHLORIDE 101 mmol/L (98-107); COSMO 278; CREATININE 0.7 mg/dL (0.7-1.2); ESTIMATED GFR > 60; GLUCOSE 130 mg/dL (70-104); GOT 1936 U/L (10-34); GPT 988 U/L (10-44); POTASSIUM 4.4 mmol/L (3.5-5.1); SODIUM 135 mmol/L (136-145); TCO2 13 mmol/L (25-35); TOTAL BILIRUBIN 0.52 mg/dL (0.20-1.00); TOTAL PROTEIN 5.8 g/dL (6.3-8.3)
[2018-08-14] MEDS: ZYVOX 600 MG/D5W 600 MG/300 ML IVPB IV SCH (05:27)
[2018-08-14 05:39] LABS: PHOSPHORUS 7.8 mg/dL (2.7-4.5)
[2018-08-14] MEDS ORDERED: NS 1,000 ML IV ONE ×2 (06:05→07:07)
[2018-08-14 06:07] LABS: HYPOCHROM 1+; LYMPHS 8 % (21-51); MONO 6 % (1-9); SEGS 76 % (42-75)
[2018-08-14] MEDS ORDERED: ALBUMIN 25% IV ONE ×2 (06:08→20:00)
[2018-08-14] MEDS ORDERED: SODIUM BICARBONATE 8.4% IV PUSH ONE ×2 (06:08→06:15)
[2018-08-14] MEDS: PRILOSEC PO SCH (06:21)
--- NOTE | 2018-08-14 07:18 | Diag Imaging Result Doc PS360 ---
EXAM: CHEST-PORTABLE 08/14/2018 HISTORY: respiratory failure TECHNIQUE: AP portable at 0406 COMMENT: There is an endotracheal tube with its tip at thoracic inlet and an NG tube with its tip below the diaphragm. There is dense retrocardiac opacity in the left lower lobe and ill-defined opacity throughout the entire right lung. Compared to 08/13/2018 there has been slight improvement in the density of the pulmonary opacities with the exception of the left lower lobe. IMPRESSION: Improved pulmonary edema versus pneumonia. Persistent opacification of the left lower lobe. Electronically signed by Kdoy Matias 08/14/2018 7:16 AM
[2018-08-14] MEDS: PULMICORT INH SCH ×2 (07:29→19:11)
--- NOTE | 2018-08-14 07:51 | EKG Report ---
Test Performed on : 08/14/2018 06:57:51 AM Test Reason : afib Blood Pressure : / mmHG Vent. Rate : 073 BPM Atrial Rate : 073 BPM P-R Int : 116 ms QRS Dur : 106 ms QT Int : 508 ms P-R-T Axes : 032 267 216 degrees QTc Int : 559 ms Normal sinus rhythm. Right superior axis deviation Incomplete right bundle branch block Possible Right ventricular hypertrophy Septal infarct (cited on or before 13-AUG-2018) Abnormal ECG When compared with ECG of 13-AUG-2018 13:50, premature atrial complexes. are no longer present QT has lengthened Unconfirmed Result
--- NOTE | 2018-08-14 07:54 | PROGRESS NOTE ---
DATE: 08/14/2018 SUBJECTIVE: Patient is sedated and intubated. As per nursing staff, the patient is also on 2 vasopressors and not making urine over the last 8 hours. OBJECTIVE: Vital Signs: Temperature 98.4 degrees, heart rate 71, respiratory rate 14, blood pressure 87/47, O2 saturation 100% on mechanical ventilator at FiO2 of 80%. General: This is a chronically ill-appearing 72-year-old male, lying in bed, in no acute distress. Sedated and intubated. HEENT: Head is normocephalic, atraumatic. Mucous membranes dry. Pupils are reactive to light and accommodation. Anicteric sclerae and pale conjunctivae. Neck: No JVD noted. No carotid bruits. No lymphadenopathy. No thyromegaly. Cardiovascular: S1, S2 heard. Bradycardic. No murmurs, gallops, or rubs noted. Respiratory: Breath sounds noted in both pulmonary bases. Patient is not using any accessory muscles or having work of breathing. Abdomen: Soft, a little bit distended. Nontender to palpation. There is a colostomy bag noted. There is also suprapubic catheter noted with no urine. Extremities: No clubbing, cyanosis, or edema. Marked muscle wasting noted. The patient is paraplegic from waist from below. Neurological: Patient is sedated and intubated. LABORATORY DATA: White cell count 41.41, hemoglobin 8.4, hematocrit 31.0, platelets 734,000. ABG shows pH 7.01, pCO2 47, PO2 151. Lactate is 7.20, that was taken on ventilator at FiO2 of 100%. BMP shows sodium 135 with creatinine 0.7, AST 1936, ALT 988, alkaline phosphatase 127. Immunoglobulin levels showed low IgG. ASSESSMENT AND PLAN: 1. Acute respiratory failure, on ventilator. The patient has been evaluated by Pulmonary. He was intubated yesterday. At this point, he is still requiring high amount of oxygen. He is on FiO2 of 80% at this time upon my examination. We will continue to monitor this patient closely. 2. Septic shock secondary to bilateral pneumonia. Patient is on Zyvox and aztreonam as per Dr. Adán Guevara' recommendation. Unfortunately, this situation is getting worse. His white cell count is getting higher. Yesterday it was 20.81 and today is 41.51. He is not spiking any fever but he is requiring, unfortunately, 2 vasopressors to keep blood pressure up. At this point, we will continue to monitor this patient here in the intensive care unit. 3. Multiple pressure ulcers on the sacrum, on the left ankle and also osteomyelitis of the left hip. Yesterday before he was intubated, we had consulted Dr. Arambula from General Surgery considering these infections but also considering his current clinical situation, he is not a candidate for any surgery at this point. 4. Atrial fibrillation with rapid ventricular response that started happening yesterday morning. He was started on Cardizem drip but unfortunately, heart rate went down in the 50s and 60s so that medication was stopped. Also, patient was supposed to receive digoxin but because the heart rate was low, he only received 1 dose. Cardiology, as mentioned before, was consulted but because this is the least of his problems, this patient is going to be followed peripherally by them. 5. History of aortic dissection following paraplegia. Stable. 6. Anemia of chronic disease. Hemoglobin today is 8.4 which is stable. We will continue to monitor. 7. Shock liver. His ALT and AST started getting higher and that is because of low blood pressure. At this point, we will continue to monitor CMP. 8. Anuria. During the last 12 hours, apparently the patient has not made any urine, just 10 mL of urine. His creatinine is stable right now but I think that number will start getting worse soon. We will continue to monitor BMP. 9. Code status. Full code. 10. Disposition. I think the prognosis of this patient is poor and I doubt this patient will survive this episode. I plan to meet with to explain to her the current situation with this patient. CRITICAL CARE TIME: 45 minutes. cc: Carlos Shaver MD MTDD
[2018-08-14] MEDS: NEURONTIN PO SCH ×2 (08:36→20:00)
[2018-08-14] MEDS: ZINC SULFATE PO SCH ×2 (08:37→20:00)
[2018-08-14] MEDS: CARAFATE PO SCH ×2 (08:37→20:00)
[2018-08-14] MEDS: PROSCAR PO SCH (08:37)
[2018-08-14] MEDS: VITAMIN D PO SCH (08:37)
[2018-08-14] MEDS: MAALOX PLUS LIQUID PO SCH (08:37)
[2018-08-14] MEDS: CORDARONE PO SCH (08:39)
[2018-08-14] MEDS: SANTYL OINT TOP SCH (08:39)
[2018-08-14] MEDS: LOTRIMIN 1% CREAM TOP SCH ×2 (08:39→20:01)
[2018-08-14] MEDS: LASIX IV SCH ×2 (08:45→20:01)
--- NOTE | 2018-08-14 08:46 | CARDIOLOGY PROGRESS NOTE ---
DATE: 08/14/2018 CHIEF COMPLAINT: Irregular heartbeat. SUBJECTIVE: Mr. Schulte converted to sinus rhythm last afternoon as I was walking in the room to examine him. He has remained in sinus rhythm. Cardizem was discontinued. The patient unfortunately continues to deteriorate. His blood work indicated that his sedimentation rate is 116 mm/hr. His C- reactive protein is 246.3. His blood gases today: pCO2 is 47, pH is 7.01, and his pO2 is 151. He is on a ventilator. sedated. His chest x-ray interestingly shows some improvement of the pulmonary infiltrates. His EKG at 6:57 in the morning shows sinus rhythm with a rate of 73 beats per minute. QRS duration is 106 ms. NE interval is 116 ms. Low voltage. OBJECTIVE: Vital Signs: His blood pressure is 85/47, temperature 98.4, pulse 72, and respirations 20. General: He is not responsive. He appears to be very pale. HEENT: No obvious abnormalities. Chest: Symmetrical breath sounds, diminished bilaterally. Cardiac: Heart sounds are regular and rhythmic. I do not hear a gallop or murmur. Abdomen: The abdomen shows the presence of a colostomy. Extremities: The extremities show a cyanotic big toe on the left side. He has some diffuse brawny edema. LABORATORY DATA: Blood work today shows a white cell count of 41,510, hemoglobin 8.4, and hematocrit 31%. His BUN is 29, creatinine 0.7, sodium 135, and potassium 4.4. His AST is 1936. ALT is 988 units. That is a big change suggesting acute liver injury. That may be hemodynamic/due to systemic hypotension. IMPRESSION: 1. The patient appears to be in a septic state with multiorgan compromise. He does have a septic source in the left hip area. 2. Paroxysmal atrial fibrillation. That has resolved. 3. History of aortic dissection, status post repair with subsequent paraplegia. 4. Very poor premorbid functional status. RECOMMENDATIONS: At this point in time the patient appears to be in extremis. I believe given the multitude of serious problems like he has it would be reasonable to shift goals of care from aggressive management to comfort measures. I believe [facility] needs to sit down with the family to go over goals of care. We will be around if you need us for anything. At this point in time his atrial fibrillation really is a secondary issue and he has converted to sinus rhythm. cc: Humble Ojeda MD MTDD
[2018-08-14] MEDS: DITROPAN XL PO SCH (09:07)
[2018-08-14] MEDS ORDERED: SODIUM BICARBONATE 8.4% 150 MEQ in D5W 1,000 ML IV SCH (09:15)
[2018-08-14 12:05] LABS: ALLEN TEST YES; BE -12.8 mmoll (-3.0-3.0); BLOOD TYPE ARTERIAL; HCO3-(ACT) 14.9 mmoll (20.0-26.0); METHB 0.3 % (0.0-1.5); O2HB 95.7 % (95.0-99.0); PCO2(98.6) 30 mmHg (35-45); PO2(98.6) 84 mmHg (60-100); SAMPLE BLOOD; SAO2 98.9 % (95.0-100.0); SRATE 22 BPM; THB 8.1 g/dL (11.5-17.4); TVOL 600 mL; pH(98.6) 7.25 (7.35-7.45)
[2018-08-14 12:08] LABS: MODALITY VENTILATOR
--- NOTE | 2018-08-14 12:39 | PULMONOLOGY PROGRESS NOTE ---
DATE: 08/14/2018 SUBJECTIVE: The patient is sedated. He appears comfortable. A 2nd vasopressor had to be added last evening. His blood pressure remains marginal. OBJECTIVE: Intake/output: Intake 4134 L. Output 1001 L with decrease in urine output to 10 mL over the last shift. HEENT: Pupils are equal and reactive. Oropharynx appears clear with endotracheal tube in place. Neck is supple. Chest reveals coarse rhonchi bilaterally. Cardiac: Regular rate, normal S1, normal S2. Abdomen: Soft with no bowel sounds present. Ostomy appears viable. Extremities are cool to the touch with slight increased peripheral edema. DIAGNOSTIC STUDIES: Chest x-ray reveals improved lung volumes with slight decreased infiltrates and decrease opacification in the left base. White blood count 41.5K, hemoglobin 8.4, platelet count 734,000. Sodium 135, potassium 4.4, chloride 101, bicarbonate 13, BUN 29, creatinine 0.7, AST 1936, ALT 988. Arterial blood gas: PH 7.01, pCO2 of 47, PO2 of 151 with a lactate of 7.2. IMPRESSION: A 72-year-old with. 1. Infected left hip joint. 2. Urine culture with Stenotrophomonas maltophilia. 3. Pneumonia/acute respiratory distress syndrome (ARDS). 4. Acute hypoxemic respiratory failure. 5. Septic shock. 6. Severe protein-calorie malnutrition. 7. Atrial fibrillation with rapid ventricular response with conversion to sinus rhythm. 8. Renal failure, suggested with marked decrease in urine output. 9. Acute shock liver. 10. Ongoing vasopressor requirements. 11. The patient has multiorgan dysfunction/failure syndrome. His prognosis is guarded, and he may not survive this hospitalization. Family is aware that he is critically ill. RECOMMENDATIONS: 1. Additional volume resuscitation. 2. Ventilator adjustments for his hypoxemic and hypercapnic respiratory failure. 3. Additional volume resuscitation with albumin later this evening. 4. Nutrition when his shock resolves. PROGNOSIS: Prognosis is guarded. The is aware that he is critically ill. Time spent in critical care management: 30+ minutes cc: Haroldo Maciel MD [facility]
[2018-08-14] MEDS: LEVAQUIN 750 MG/D5W 750 MG/150 ML IVPB IV SCH (15:12)
--- NOTE | 2018-08-14 15:14 | GENERAL SURGERY PROGRESS NOTE ---
DATE: 08/14/2018 SUBJECTIVE: He remains critically ill, high ventilator settings. He is on multiple pressors. Not really responsive. OBJECTIVE: On examination, he is endotracheally intubated. His abdomen is soft. The ostomy is with stool in the bag. Bilateral lower extremities show cyanosis of the foot, worse on the left. He has a dressing in place over his left hip, gluteal wounds. Integument is otherwise cool. I reviewed his labs. White count is up to 41. He became acidotic, 7.25 on his ABG with a lactate of 9.40, base deficit -12. Creatinine is 0.7. Transaminases are high at 1936. ASSESSMENT/PLAN: This is a 72-year-old gentleman with paraplegia. He is floridly septic. Multiorgan system failure at this juncture as related to pneumonia and urinary tract infection. He also has chronic osteomyelitis, which likely is contributing to some degree. He is far too ill to undergo any surgical intervention. We will continue antibiotics and local wound care. I had a long discussion with the . She is still wanting all measures done at this juncture. I think the probability of his recovery is very, very low. We will continue to follow along. cc: Hector Arambula MD
[2018-08-14] MEDS: ROCEPHIN 2 GM in NS 50 ML IV SCH (15:40)
--- NOTE | 2018-08-14 17:48 | INFECTIOUS DISEASE PROGRESS NO ---
DATE: 08/14/2018 PRESENT ILLNESS: The patient has a bilateral pneumonia. Part of it is getting worse and part of it is getting better. The patient also has multiple infected decubitus ulcers. The patient also has a urinary tract infection. MEDICATIONS: This is the third day of treatment with a combination of Zyvox and aztreonam. PHYSICAL EXAMINATION: Vital Signs: Temperature is 98 degrees, pulse 85, respirations 22, blood pressure 117/70. General: This is an ill-appearing, elderly male. He is intubated and sedated. Head, eyes, ears, nose, and throat: The patient has an orotracheal tube in place. There is no drainage from the nose or ears. Lungs: There were bilateral rales. Cardiovascular: Heart rate is regular. Abdomen: Soft and nontender. Neurologic: The patient is sedated. He did not make any spontaneous movements. He did not respond to verbal stimuli. LAB AND RADIOLOGY: Chest x-ray shows improved pulmonary edema versus pneumonia and it also shows persistent opacification of the left lower lobe. The patient's urine culture grew out Stenotrophomonas. The patient's wound cultures grew out Acinetobacter. The patient's immunoglobulin showed that IgG was 888, IgA was 341. ASSESSMENT AND PLAN: The patient has a pneumonia. He also has infected decubitus ulcers and finally he has a urinary tract infection. I am going to discontinue the current antibiotics and instead start the patient on a combination of Rocephin and Levaquin. The patient does have a Zosyn allergy manifested by swelling. I told the patient's that same reaction could happen with Rocephin but since the patient is intubated, he will have an airway because he is intubated. She understood what I was explaining to her and she went along with starting him on that medication. COMORBIDITIES: He is paralyzed from the waist down. He has gastroesophageal reflux disease and COPD due to cigarette smoking. cc: Adán Guevara MD
--- NOTE | 2018-08-14 19:07 | ECHO REPORT ---
ORDER DATE: 08/14/2018 INDICATIONS: Paroxysmal atrial fibrillation and sepsis. M-MODE MEASUREMENTS: Left ventricle end diastole: 5.1. Left ventricle end systole: 4.2. Posterior wall: 0.9. Interventricular septum: 0.9. Left atrium: 3.1. SUMMARY OF 2-DIMENSIONAL IMAGIN. The study is difficult. The patient is on a ventilator. 2. The left ventricle shows evidence of apical ballooning. 3. The basal segments show reduction in contractility, and the mid to apical segments show complete akinesis. The right ventricle also shows akinesis of the apical right ventricular wall. This is consistent with a stress-related cardiomyopathy or Takotsubo syndrome. 4. The tricuspid valve showed a mild to moderate degree of regurgitation. Pulmonary pressure estimated at 47 to 53 mmHg. 5. The mitral valve shows a mild to moderate degree of regurgitation. 6. Pulsed wave Doppler of mitral inflow shows a fusion of the E and A waves. 7. Tissue Doppler cannot be accurately evaluated in this case because the apical views are limited. 8. The pulmonary venous flow shows predominance of a diastolic component. 9. The atria are probably at the upper limits of normal. The aortic valve is unremarkable. 10.There is no pericardial effusion. SUMMARY: 1. This echographic study is limited. It shows evidence of apical ballooning consistent with Takotsubo cardiomyopathy. This involves both the left and the right ventricles. The base of the heart is hyperkinetic, and the mid to apical segments are akinetic. 2. There is a mild to moderate degree of mitral and tricuspid regurgitation. 3.. Pulmonary pressure is estimated to be in the range of 47 to 53 mmHg. Clinical correlation is strongly recommended. cc: MD Violet Torres PA MTDD
[2018-08-14] MEDS: XARELTO PO SCH (20:00)
[2018-08-14] MEDS: SINGULAIR PO SCH (20:00)
[2018-08-15] MEDS: NEO-SYNEPHRINE 50 MG in NS 250 ML IV SCH ×4 (01:52→09:37)
[2018-08-15] MEDS: ATROVENT NEB INH SCH ×6 (03:00→23:05)
[2018-08-15] MEDS: XOPENEX NEB INH SCH ×6 (03:00→23:05)
[2018-08-15] MEDS: DIPRIVAN 1% 1,000 MG/100 ML BOTTLE IV SCH ×5 (03:49→23:24)
[2018-08-15 04:55] LABS: ALLEN TEST YES; BE -8.6 mmoll (-3.0-3.0); BLOOD TYPE ARTERIAL; HCO3-(ACT) 18.2 mmoll (20.0-26.0); METHB 0.8 % (0.0-1.5); O2HB 95.9 % (95.0-99.0); PCO2(98.6) 28 mmHg (35-45); PO2(98.6) 94 mmHg (60-100); SAMPLE BLOOD; SAO2 98.9 % (95.0-100.0); SRATE 22 BPM; THB 8.8 g/dL (11.5-17.4); TVOL 600 mL; pH(98.6) 7.36 (7.35-7.45)
[2018-08-15 04:57] LABS: MODALITY VENTILATOR
[2018-08-15 05:42] LABS: BASO# 0.12 X1000 (0.0-0.2); BASO% 0.4 % (0.0-0.8); EOS# 0.04 X1000 (0.0-0.7); EOS% 0.1 % (0.0-10.0); HEMATOCRIT 29.2 % (42.0-52.0); HEMOGLOBIN 8.2 g/dL (14.0-18.0); IMM GRAN# 2.54 X1000 (0.0-0.04); IMM GRAN% 7.7 % (0.0-0.5); LYMPH# 1.17 X1000 (1.2-3.4); LYMPH% 3.6 % (20.5-51.1); MCH 20.1 PG (27-31); MCHC 28.1 g/dL (33-37); MCV 71.7 FL (81-99); MONO# 0.81 X1000 (0.11-0.59); MONO% 2.5 % (1.7-9.3); MPV 9.6 FL (7.4-10.4); NEUT# 28.25 X1000 (1.4-6.5); NEUT% 85.7 % (42.2-75.2); PLT 462 X1000 (130-400); RBC 4.07 XMIL (4.7-6.1); RDW 20.5 % (11.5-14.5); WBC 32.93 X1000 (4.8-10.8)
--- NOTE | 2018-08-15 06:25 | Diag Imaging Result Doc PS360 ---
EXAM: CHEST-PORTABLE HISTORY: respiratory failure TECHNIQUE: Portable chest single view COMPARISON: 08/14/2018 FINDINGS: No change in the endotracheal tube, the nasogastric tube, or in the right-sided PICC line. There are infiltrates in the mid and lower lungs. The heart is mildly prominent. There are small pleural effusions. IMPRESSION: No interval improvement. Electronically signed by Alfie Mustafa 08/15/2018 6:23 AM
[2018-08-15 06:26] LABS: AGAP 22; ALB/GLOB RATIO 0.9; ALBUMIN 2.4 g/dL (3.5-5.0); ALKALINE PHOSPHATASE 136 U/L (32-122); BUN 28 mg/dL (8-22); CALCIUM 7.9 mg/dL (8.8-10.2); CHLORIDE 102 mmol/L (98-107); COSMO 283; CREATININE 0.7 mg/dL (0.7-1.2); ESTIMATED GFR > 60; GLUCOSE 56 mg/dL (70-104); GOT 2583 U/L (10-34); GPT 1849 U/L (10-44); POTASSIUM 2.8 mmol/L (3.5-5.1); SODIUM 140 mmol/L (136-145); TCO2 16 mmol/L (25-35); TOTAL BILIRUBIN 0.58 mg/dL (0.20-1.00); TOTAL PROTEIN 5.1 g/dL (6.3-8.3)
[2018-08-15] MEDS ORDERED: POTASSIUM CHLORIDE 60 MEQ in NS 500 ML IV ONE (06:35)
[2018-08-15] MEDS: PRILOSEC PO SCH (06:59)
[2018-08-15] MEDS: PULMICORT INH SCH ×2 (07:32→19:40)
--- NOTE | 2018-08-15 07:32 | PROGRESS NOTE ---
DATE: 08/15/2018 SUBJECTIVE: The patient continues to be sedated and intubated. As per nursing staff, he continues to be on 2 vasopressors but 1 of them, Levophed we are titrating down. He has made 350 mL of urine in the last 8 hours. OBJECTIVE: Vital Signs: Temperature 97.6 degrees, heart rate 90, respiratory rate 22, blood pressure 106/61, O2 saturation 100% on mechanical ventilator. FiO2 60%. General: This is a chronically ill appearing, 72-year-old male, lying in bed, in no acute distress. Sedated and intubated. HEENT: Head is normocephalic, atraumatic. Mucous membranes very dry. Anicteric sclerae and pale conjunctivae. Neck: No JVD noted. No carotid bruits. No lymphadenopathy. No thyromegaly. Cardiovascular: S1, S2 heard. No murmurs, gallops, or rubs. Regular rate and rhythm. Respiratory: Minimal coarse breath sounds noted in both pulmonary bases. Patient is not using any accessory muscles or having work of breathing. Abdomen: Soft, a little bit distended. Colostomy bag noted with stool present. Suprapubic catheter noted as well. Extremities: No clubbing, cyanosis, but edema in both lower extremities and also muscle wasting noted. The patient is paraplegic from the waist below. Neurological: Patient is sedated and intubated. LABORATORY DATA: White cell count 32.93, hemoglobin 8.2, hematocrit 29.2, platelets 462,000. ABG shows pH 7.36 with pCO2 28, PO2 94. Lactate 5.2. Potassium 2.8. Creatinine 0.7. AST 2024, ALT 1849. ASSESSMENT AND PLAN: 1. Acute respiratory failure secondary to pneumonia/acute respiratory distress syndrome. Pulmonary following this patient. FiO2 is 60% today. The x-ray from today showed no significant interval improvement. There are infiltrates in the mid and lower lungs with small pleural effusions. We will continue to monitor. 2. Septic shock secondary to bilateral pneumonia. Unfortunately, this patient continues to require 2 pressors to keep blood pressure up. Dr. Guevara of Infectious Disease has changed antibiotics from Zyvox and aztreonam to ceftriaxone and Levaquin. White cell count so far has decreased a little bit. He is not developing any fever. We will continue with the same management. 3. Multiple pressure ulcers on the sacrum, on the left ankle and also left hip osteomyelitis. Dr. Arambula from General Surgery has been consulted but of course, he is not a candidate for any procedures considering his current clinical situation. 4. Atrial fibrillation with rapid ventricular response. The heart rate is back to sinus. 5. Shock liver. Unfortunately AST and ALT continue to get worse. We will start checking INR also to monitor liver function. 6. Oliguria. Patient started making a little bit more of urine. The patient has made 350 mL of urine during the last 8 hours. We will continue to monitor in's and out's strictly. Renal function is stable. 7. Anemia of chronic disease. Hemoglobin is stable. We will continue to monitor BMP. 8. History of aortic dissection following paraplegia, stable. 9. Code status. At this point, patient is full code. 10. Disposition. I have talked with and informed her about her about his poor prognosis. The patient's acknowledged understanding. We will continue to monitor this patient closely. Critical care time 35 minutes. cc: Carlos Shaver MD MTDD
[2018-08-15] MEDS: NEURONTIN PO SCH ×2 (09:10→20:55)
[2018-08-15] MEDS: MAALOX PLUS LIQUID PO SCH (09:10)
[2018-08-15] MEDS: PROSCAR PO SCH (09:11)
[2018-08-15] MEDS: CARAFATE PO SCH ×2 (09:11→20:55)
[2018-08-15] MEDS: LOTRIMIN 1% CREAM TOP SCH ×2 (09:11→20:56)
[2018-08-15] MEDS: VITAMIN D PO SCH (09:11)
[2018-08-15] MEDS: SANTYL OINT TOP SCH (09:11)
[2018-08-15] MEDS: ZINC SULFATE PO SCH ×2 (09:11→20:55)
[2018-08-15] MEDS: LASIX IV SCH ×2 (09:11→20:55)
[2018-08-15] MEDS: CORDARONE PO SCH (09:11)
[2018-08-15] MEDS: DITROPAN XL PO SCH (09:11)
[2018-08-15] MEDS: NEO-SYNEPHRINE 100 MG in NS 500 ML IV SCH ×3 (12:01→21:42)
[2018-08-15] MEDS: LEVOPHED 8 MG in D5 1/2 NS 250 ML IV SCH ×2 (12:01→21:42)
--- NOTE | 2018-08-15 14:18 | GENERAL SURGERY PROGRESS NOTE ---
DATE: 08/15/2018 SUBJECTIVE: Remains critically ill, multiple pressors, intubated and sedated. I reviewed his labs and imaging. His acidosis is somewhat improved. Profound leukocytosis and transaminases of 2583. ASSESSMENT AND PLAN: A 72-year-old gentleman with sepsis related pneumonia and UTI. He also has chronic osteomyelitis, septic arthritis of the left hip. We will follow along. No plans for surgical intervention. We will continue local wound care. cc: Hector Arambula MD
[2018-08-15] MEDS: ROCEPHIN 2 GM in NS 50 ML IV SCH (15:41)
[2018-08-15] MEDS: LEVAQUIN 750 MG/D5W 750 MG/150 ML IVPB IV SCH (16:22)
--- NOTE | 2018-08-15 17:01 | PULMONOLOGY PROGRESS NOTE ---
DATE: 08/15/2018 SUBJECTIVE: Patient remains on mechanical ventilation. He continues to require 2 vasopressors. OBJECTIVE: Vital Signs: Patient has been afebrile for the last 24 hours. Blood pressure 101/56, heart rate 94, respiratory rate 22, oxygen saturation 100%. HEENT: Pupils are equal and reactive. Oropharynx appears clear but endotracheal tube in place. Neck: Supple. Chest: Reveals diffuse bilateral crackles. Cardiac: Regular rate. Normal S1, normal S2. Abdomen: Soft. Ostomy appears to be viable. Extremities: Reveal increased peripheral edema. LABORATORIES: Arterial blood gas reveals a pH 7.36, pCO2 of 28, PO2 of 94. Lactate of 5.2. Sodium 140, potassium 2.8, chloride 102, bicarbonate 16, BUN 28, creatinine 0.7. AST 2583, ALT 1849, total protein 5.2, albumin 2.4. No new microbiology data. Chest x-ray reveals bilateral infiltrates without improvement. IMPRESSION: A 72-year-old with: 1. Chronically infected left hip joint. 2. Decubitus ulcers. 3. Pneumonia/acute respiratory distress syndrome. 4. Acute hypoxemic respiratory failure. 5. Septic shock without ongoing vasopressor requirements. Lactic acidosis has slightly improved. 6. Paroxysmal atrial fibrillation. 7. Severe protein calorie malnutrition. 8. Acute renal failure. 9. Shock liver. DISCUSSION: This is a 72-year-old with multiorgan dysfunction syndrome. The patient is critically ill and may not survive this hospital stay. Family is at bedside. All questions were answered. RECOMMENDATIONS: 1. Continue full ventilatory support. 2. Wean vasopressors as tolerated. 3. Consider nutrition when his shock has resolved. 4. Ongoing end of life discussions. cc: Haroldo Maciel MD
--- NOTE | 2018-08-15 17:32 | INFECTIOUS DISEASE PROGRESS NO ---
DATE: 08/15/2018 PRESENT ILLNESS: The patient has bilateral pneumonia. He also has multiple infected decubitus ulcers. He also has hip septic arthritis and a urinary tract infection. MEDICATIONS: The patient is receiving Zyvox and aztreonam. This is the 4th day of treatment with those agents. PHYSICAL EXAMINATION: Vital Signs: Temperature is 97.7 degrees, pulse 95, respirations 22, blood pressure 96/54. General: This is an ill-appearing elderly male. He is intubated and sedated. Head/eyes/ears/nose/throat: He has an orotracheal tube in place. I do not see any drainage from his nose or ears. Neck: No adenopathy appreciated. Lungs: There were bilateral rales. Cardiovascular: Heart rate is regular. Abdomen: Soft and nontender. Neurologic: The patient is sedated. He does not respond to verbal stimuli. Extremities: Patient has a PICC in his right arm. The site is not erythematous or draining. LAB AND X-RAY: Chest x-ray shows stable bilateral infiltrates. The AST is 2583. CBC shows a white count of 32,930, hemoglobin 8.2, and platelet count of 462,000. Blood gases show a pH of 7.36, a PO2 of 94, and a pCO2 of 28. Creatinine is 0.6. GFR is greater than 60. ASSESSMENT AND PLAN: Patient has pneumonia. He also has infected decubitus ulcers and urinary tract infection. Yesterday I discontinued Zyvox and aztreonam and put the patient on Rocephin and Levaquin which is day 1 of treatment with those 2 agents. COMORBIDITIES: The patient is paralyzed from the waist distally. He also has gastroesophageal reflux disease and COPD due to cigarette smoking. cc: Adán Guevara MD
[2018-08-15] MEDS: XARELTO PO SCH (20:55)
[2018-08-15] MEDS: SINGULAIR PO SCH (20:55)
[2018-08-16] MEDS: NEO-SYNEPHRINE 100 MG in NS 500 ML IV SCH ×5 (02:29→21:26)
[2018-08-16] MEDS: XOPENEX NEB INH SCH ×6 (03:07→23:00)
[2018-08-16] MEDS: ATROVENT NEB INH SCH ×6 (03:07→23:00)
[2018-08-16] MEDS: DIPRIVAN 1% 1,000 MG/100 ML BOTTLE IV SCH (04:18)
[2018-08-16 04:55] LABS: ALLEN TEST YES; BE -6.1 mmoll (-3.0-3.0); BLOOD TYPE ARTERIAL; HCO3-(ACT) 20.2 mmoll (20.0-26.0); METHB 1.5 % (0.0-1.5); O2(CT) 11.6 mL/dL (15.0-23.0); O2HB 96.2 % (95.0-99.0); PCO2(98.6) 27 mmHg (35-45); PO2(98.6) 150 mmHg (60-100); SAMPLE BLOOD; SAO2 99.9 % (95.0-100.0); SRATE 22 BPM; THB 8.3 g/dL (11.5-17.4); TVOL 600 mL; pH(98.6) 7.42 (7.35-7.45)
[2018-08-16] MEDS: PRILOSEC PO SCH (05:59)
[2018-08-16 06:12] LABS: MODALITY VENTILATOR
[2018-08-16 06:31] LABS: BASO% 0.3 % (0.0-0.8); EOS# 0.07 X1000 (0.0-0.7); EOS% 0.2 % (0.0-10.0); HEMATOCRIT 29.8 % (42.0-52.0); HEMOGLOBIN 8.7 g/dL (14.0-18.0); IMM GRAN# 2.42 X1000 (0.0-0.04); IMM GRAN% 7.4 % (0.0-0.5); LYMPH# 1.08 X1000 (1.2-3.4); LYMPH% 3.3 % (20.5-51.1); MCH 20.5 PG (27-31); MCHC 29.2 g/dL (33-37); MCV 70.3 FL (81-99); MONO# 0.84 X1000 (0.11-0.59); MONO% 2.6 % (1.7-9.3); MPV 9.9 FL (7.4-10.4); NEUT# 27.98 X1000 (1.4-6.5); NEUT% 86.2 % (42.2-75.2); PLT 451 X1000 (130-400); RBC 4.24 XMIL (4.7-6.1); RDW 20.8 % (11.5-14.5); WBC 32.49 X1000 (4.8-10.8)
[2018-08-16 06:56] LABS: AGAP 17; ALB/GLOB RATIO 0.7; ALKALINE PHOSPHATASE 150 U/L (32-122); BUN 25 mg/dL (8-22); CALCIUM 7.7 mg/dL (8.8-10.2); CHLORIDE 109 mmol/L (98-107); COSMO 285; CREATININE 0.6 mg/dL (0.7-1.2); ESTIMATED GFR > 60; GLUCOSE 60 mg/dL (70-104); POTASSIUM 3.2 mmol/L (3.5-5.1); SODIUM 142 mmol/L (136-145); TCO2 16 mmol/L (25-35); TOTAL BILIRUBIN 0.49 mg/dL (0.20-1.00); TOTAL PROTEIN 4.8 g/dL (6.3-8.3)
[2018-08-16 07:06] LABS: GOT 928 U/L (10-34); GPT 1156 U/L (10-44)
[2018-08-16] MEDS: PULMICORT INH SCH ×2 (07:28→19:16)
[2018-08-16 08:01] LABS: LYMPHS 4 % (21-51); NRBC 1 % (0-0); SEGS 92 % (42-75)
[2018-08-16] MEDS ORDERED: LASIX IV ONE (08:19)
[2018-08-16] MEDS: LASIX IV SCH ×2 (08:20→20:47)
[2018-08-16 08:26] LABS: MAGNESIUM 1.4 mg/dL (1.5-2.7); PHOSPHORUS 3.2 mg/dL (2.7-4.5)
[2018-08-16] MEDS ORDERED: POTASSIUM CHLORIDE 60 MEQ in NS 500 ML IV ONE (08:30)
--- NOTE | 2018-08-16 08:42 | Diag Imaging Result Doc PS360 ---
EXAM: CHEST-PORTABLE - 08/16/2018 HISTORY: respiratory failure TECHNIQUE: Portable chest COMPARISON: 08/15/2018 FINDINGS: Endotracheal tube, nasogastric tube, and PICC remain in place. Heart size appears normal. There has been mild decrease in bilateral infiltrates. There is a small left pleural effusion. There is no pneumothorax identified. IMPRESSION: Mild decrease in bilateral infiltrates. Electronically signed by Enrique Townsend 08/16/2018 8:40 AM
[2018-08-16] MEDS: CORDARONE PO SCH (08:56)
[2018-08-16] MEDS: PROSCAR PO SCH (08:56)
[2018-08-16] MEDS: NEURONTIN PO SCH ×2 (08:56→20:47)
[2018-08-16] MEDS: ZINC SULFATE PO SCH ×2 (08:56→20:47)
[2018-08-16] MEDS: MAALOX PLUS LIQUID PO SCH (08:56)
[2018-08-16] MEDS: DITROPAN XL PO SCH (08:56)
[2018-08-16] MEDS: CARAFATE PO SCH ×2 (08:56→20:47)
[2018-08-16] MEDS: VITAMIN D PO SCH (08:56)
[2018-08-16] MEDS: LEXAPRO PO SCH (08:56)
[2018-08-16] MEDS: SANTYL OINT TOP SCH (08:57)
[2018-08-16] MEDS: LOTRIMIN 1% CREAM TOP SCH ×2 (08:57→20:47)
--- NOTE | 2018-08-16 09:18 | PROGRESS NOTE ---
DATE: 08/16/2018 SUBJECTIVE: The patient continues to be intubated. Apparently sedation has been stopped because it might have been contributing to hypotension. He unfortunately continues to require two vasopressors, Levophed and Isaac- Synephrine. He is making adequate urine output. OBJECTIVE: Vital Signs: Temperature 98.2 degrees, heart rate 103, respiratory rate 22, blood pressure 94/50, O2 saturation 100% on mechanical ventilator at FiO2 of 40%. General: This is a chronically ill-appearing, 72-year-old male, lying in bed, in no acute distress, intubated. HEENT: Head is normocephalic, atraumatic. Mucous membranes very dry. Anicteric sclerae and pale conjunctivae. Neck: No JVD noted. No carotid bruits. No lymphadenopathy. No thyromegaly. Cardiovascular: S1, S2 heard. No murmurs, gallops, or rubs. Regular rate and rhythm. Respiratory: Minimal coarse breath sounds noted still in both pulmonary bases. Patient not using any accessory muscles or having work of breathing. Abdomen: Soft, a little bit distended. Colostomy bag noted with stool present and also suprapubic catheter noted as well. Extremity: Marked edema in both upper and lower extremities, worse in comparing with the last 2 days. Neurological: Patient is paraplegic from the waist below and patient is intubated and recently sedated. LABORATORY DATA: White cell count 32.49, hemoglobin 8.7, hematocrit 29.8, platelets 451,000 with ABG that shows pH 7.42 with pCO2 of 27, PO2 150. Lactate 3.4. Sodium 142, potassium 3.2, creatinine 0.6, with AST 928, ALT 1156. ASSESSMENT AND PLAN: 1. Acute respiratory failure secondary to pneumonia/acute respiratory distress syndrome. The patient continues to require to be on ventilator. FiO2 today is 40%. X-ray from today showed mild decrease in bilateral infiltrates. His FiO2 is also getting better. Pulmonary following this patient. We will follow recommendations. 2. Septic shock secondary to bilateral pneumonia. Unfortunately, this patient continues to require 2 vasopressors to keep blood pressure up. Dr. Guevara of Infectious Disease is directing antibiotics and today is day #2 of ceftriaxone and Levaquin. White cell count is basically the same in comparing with yesterday. He is not developing any fever. At this point, we will continue with same management. 3. Multiple pressure ulcers on the sacrum, on the left ankle and also left hip osteomyelitis that is definitely contributing to his septic shock. Surgery has been consulted but he is not, of course, a candidate for any procedure at this time. 4. Atrial fibrillation with rapid ventricular response, resolved. 5. Shock liver. AST and ALT are getting a little bit better. We will continue to monitor INR and CMP. 6. Anemia of chronic disease. Hemoglobin is stable. We will continue to monitor BMP. 7. History of aortic dissection following paraplegia, stable. 8. Code status. Patient is full code. 9. Disposition. I have informed and son, who were at bedside, about his current situation. His prognosis is still very poor. CRITICAL CARE TIME: 40 minutes. cc: Carlos Shaver MD MTDD
[2018-08-16] MEDS: LEVOPHED 8 MG in D5 1/2 NS 250 ML IV SCH ×2 (13:13→21:26)
[2018-08-16] MEDS: ROCEPHIN 2 GM in NS 50 ML IV SCH (14:42)
[2018-08-16] MEDS: TYLENOL PO PRN (15:28)
[2018-08-16] MEDS: LEVAQUIN 750 MG/D5W 750 MG/150 ML IVPB IV SCH (15:28)
[2018-08-16] MEDS: SOLU-CORTEF IV SCH ×2 (15:40→23:56)
[2018-08-16] MEDS: ATIVAN IV PRN ×2 (16:21→20:47)
[2018-08-16] MEDS: XARELTO PO SCH (20:47)
[2018-08-16] MEDS: SINGULAIR PO SCH (20:47)
[2018-08-17] MEDS: ATIVAN IV PRN ×3 (00:13→23:15)
[2018-08-17] MEDS: NEO-SYNEPHRINE 100 MG in NS 500 ML IV SCH ×4 (01:41→16:18)
[2018-08-17] MEDS: ATROVENT NEB INH SCH ×6 (03:00→22:57)
[2018-08-17] MEDS: XOPENEX NEB INH SCH ×6 (03:00→22:58)
[2018-08-17 05:25] LABS: ALLEN TEST YES; BE -3.8 mmoll (-3.0-3.0); BLOOD TYPE ARTERIAL; METHB 0.7 % (0.0-1.5); O2(CT) 11.5 mL/dL (15.0-23.0); O2HB 96.2 % (95.0-99.0); PCO2(98.6) 30 mmHg (35-45); PO2(98.6) 95 mmHg (60-100); SAMPLE BLOOD; SAO2 99.4 % (95.0-100.0); SRATE 20 BPM; THB 8.4 g/dL (11.5-17.4); TVOL 600 mL; pH(98.6) 7.43 (7.35-7.45)
[2018-08-17 05:26] LABS: MODALITY VENTILATOR
[2018-08-17 05:33] LABS: BASO# 0.11 X1000 (0.0-0.2); BASO% 0.4 % (0.0-0.8); HEMATOCRIT 28.6 % (42.0-52.0); HEMOGLOBIN 8.2 g/dL (14.0-18.0); IMM GRAN% 7.3 % (0.0-0.5); LYMPH% 3.1 % (20.5-51.1); MCHC 28.7 g/dL (33-37); MCV 69.8 FL (81-99); MONO# 0.48 X1000 (0.11-0.59); MONO% 1.7 % (1.7-9.3); MPV 9.4 FL (7.4-10.4); NEUT# 25.26 X1000 (1.4-6.5); NEUT% 87.5 % (42.2-75.2); PLT 431 X1000 (130-400); RDW 20.5 % (11.5-14.5); WBC 28.85 X1000 (4.8-10.8)
[2018-08-17 05:56] LABS: MAGNESIUM 1.3 mg/dL (1.5-2.7); PHOSPHORUS 3.6 mg/dL (2.7-4.5)
[2018-08-17 06:03] LABS: AGAP 16; ALB/GLOB RATIO 0.6; ALBUMIN 1.9 g/dL (3.5-5.0); ALKALINE PHOSPHATASE 142 U/L (32-122); BUN 23 mg/dL (8-22); CALCIUM 7.5 mg/dL (8.8-10.2); CHLORIDE 110 mmol/L (98-107); COSMO 291; CREATININE 0.5 mg/dL (0.7-1.2); ESTIMATED GFR > 60; GLUCOSE 115 mg/dL (70-104); GOT 285 U/L (10-34); GPT 692 U/L (10-44); POTASSIUM 3.2 mmol/L (3.5-5.1); SODIUM 144 mmol/L (136-145); TCO2 18 mmol/L (25-35); TOTAL BILIRUBIN 0.92 mg/dL (0.20-1.00); TOTAL PROTEIN 4.9 g/dL (6.3-8.3)
[2018-08-17] MEDS: PRILOSEC PO SCH (06:19)
[2018-08-17 06:51] LABS: LYMPHS 6 % (21-51); MONO 2 % (1-9); NRBC 2 % (0-0); SEGS 92 % (42-75)
[2018-08-17] MEDS ORDERED: MAGNESIUM SULFATE 2 GM/S.W.I. 2 GM/50 ML IVPB IV ONE (07:13)
[2018-08-17] MEDS: PULMICORT INH SCH ×2 (07:13→19:20)
--- NOTE | 2018-08-17 07:22 | Diag Imaging Result Doc PS360 ---
EXAM: CHEST-PORTABLE HISTORY: respiratory failure TECHNIQUE: Portable chest single view COMPARISON: 08/16/2018 FINDINGS: Endotracheal tube is in good position. No change in the right-sided PICC line or the nasogastric tube. Mild increased interstitial markings in the lower lungs with a small left pleural effusion. No cardiomegaly. The overall appearance is similar to the prior exam. IMPRESSION: Stable chest. Electronically signed by Alfie Mustafa 08/17/2018 7:19 AM
[2018-08-17] MEDS: CARAFATE PO SCH ×2 (08:07→21:05)
[2018-08-17] MEDS: SOLU-CORTEF IV SCH ×3 (08:07→23:15)
[2018-08-17] MEDS: MAALOX PLUS LIQUID PO SCH (08:07)
[2018-08-17] MEDS: LASIX IV SCH ×2 (08:07→21:04)
[2018-08-17] MEDS: PROSCAR PO SCH (08:08)
[2018-08-17] MEDS: LEXAPRO PO SCH (08:08)
[2018-08-17] MEDS: ZINC SULFATE PO SCH ×2 (08:08→21:04)
[2018-08-17] MEDS: NEURONTIN PO SCH ×2 (08:08→21:04)
[2018-08-17] MEDS: VITAMIN D PO SCH (08:08)
[2018-08-17] MEDS: CORDARONE PO SCH (08:20)
[2018-08-17] MEDS: LOTRIMIN 1% CREAM TOP SCH ×2 (08:21→21:05)
[2018-08-17] MEDS: SANTYL OINT TOP SCH (08:22)
[2018-08-17] MEDS: ALBUMIN 25% IV SCH ×2 (09:32→21:04)
--- NOTE | 2018-08-17 09:49 | PROGRESS NOTE ---
DATE: 08/17/2018 SUBJECTIVE: Patient continues to be sedated and intubated. The patient requires still 2 vasopressors. He is making good urine output. OBJECTIVE: Vitals: Temperature 99.7 degrees, heart rate 104, respiratory rate 20, blood pressure 115/59, O2 saturation 100% on mechanical ventilator at FiO2 of 40%. General Examination: This is a chronically ill-appearing, 72-year-old male, lying in bed, in no acute distress. Intubated, in anasarca. HEENT: Head is normocephalic, atraumatic. Mucous membranes very dry. Anicteric sclerae and pale conjunctivae. Neck: No JVD noted. No carotid bruits. No lymphadenopathy. No thyromegaly. Cardiovascular: S1, S2 heard. No murmurs, gallops, or rubs. Regular rate and rhythm. Respiratory: Minimal coarse breath sounds still present in both pulmonary bases. Patient not using any accessory muscles or having work of breathing. Abdomen: Soft. A little bit distended with colostomy bag noted and also suprapubic catheter as well. Extremity: The patient is in anasarca, swelling in both upper and lower extremities. Neurological: Patient is paraplegic from the waist below, the patient is intubated and sedated. LABORATORY DATA: White cell count 28.95, hemoglobin 8.2, hematocrit 28.6, platelets 431,000. ABG shows pH 7.43, with pCO2 30, PO2 95. Lactate 2.5, that was taken mechanical ventilator FiO2 40%. BMP remarkable for sodium 3.2. Normal prealbumin, carbon dioxide is 18, glucose 115, magnesium 1.3. AST 285, ALT 692. ASSESSMENT AND PLAN: 1. Acute respiratory failure secondary to pneumonia/acute respiratory distress syndrome. The patient continues to requires to be on ventilator, but the FiO2 from yesterday and today is 40%. The x-ray from today showed stable chest. Pulmonary is following this patient. We will follow recommendations. 2. Septic shock secondary to bilateral pneumonia and also multiple pressure ulcers. Patient is receiving ceftriaxone and Levaquin, day #3 of treatment. White cell count is still elevated, although a little bit better today. We will continue with the same management. 3. Multiple pressure ulcers on the sacrum on the left ankle and left hip osteomyelitis. I think all this is contributing to the persistent septic shock requiring the vasopressors. At this point, we will continue to monitor this patient closely. 4. Atrial fibrillation with rapid ventricular response, resolved. 5. Shock liver. AST and ALT are getting slightly better. We will continue to monitor BMP daily. 6. Anemia of chronic disease. Hemoglobin is stable. We will continue to monitor. 7. History of aortic dissection following paraplegia, stable. 8. Code status. Full Code. 9. Disposition. The patient is critical ill and will remain in the intensive care unit. cc: Carlos Shaver MD
[2018-08-17] MEDS: POTASSIUM CHLORIDE 20 MEQ/SWI 20 MEQ/100 ML IVPB IV SCH ×2 (10:52→12:39)
[2018-08-17] MEDS: DITROPAN PO SCH ×2 (11:11→21:05)
[2018-08-17] MEDS: LEVAQUIN 750 MG/D5W 750 MG/150 ML IVPB IV SCH (16:05)
[2018-08-17] MEDS: ROCEPHIN 2 GM in NS 50 ML IV SCH (16:05)
[2018-08-17] MEDS: XARELTO PO SCH (21:04)
[2018-08-17] MEDS: SINGULAIR PO SCH (21:05)
[2018-08-18] MEDS: NEO-SYNEPHRINE 100 MG in NS 500 ML IV SCH (02:03)
[2018-08-18] MEDS: XOPENEX NEB INH SCH ×6 (03:44→22:40)
[2018-08-18] MEDS: ATROVENT NEB INH SCH ×6 (03:44→22:39)
[2018-08-18 04:57] LABS: BASO# 0.03 X1000 (0.0-0.2); BASO% 0.3 % (0.0-0.8); HEMATOCRIT 24.1 % (42.0-52.0); IMM GRAN# 0.76 X1000 (0.0-0.04); IMM GRAN% 6.5 % (0.0-0.5); LYMPH# 0.72 X1000 (1.2-3.4); LYMPH% 6.2 % (20.5-51.1); MCH 20.2 PG (27-31); MCV 69.5 FL (81-99); MONO% 4.3 % (1.7-9.3); MPV 9.4 FL (7.4-10.4); NEUT# 9.62 X1000 (1.4-6.5); NEUT% 82.7 % (42.2-75.2); PLT 237 X1000 (130-400); RBC 3.47 XMIL (4.7-6.1); RDW 20.2 % (11.5-14.5); WBC 11.63 X1000 (4.8-10.8)
[2018-08-18 05:06] LABS: ALLEN TEST YES; BE -3.5 mmoll (-3.0-3.0); BLOOD TYPE ARTERIAL; HCO3-(ACT) 22.2 mmoll (20.0-26.0); METHB 1.2 % (0.0-1.5); O2(CT) 5.5 mL/dL (15.0-23.0); O2HB 96.6 % (95.0-99.0); PCO2(98.6) 27 mmHg (35-45); PO2(98.6) 125 mmHg (60-100); SAMPLE BLOOD; SAO2 99.7 % (95.0-100.0); SRATE 20 BPM; THB 3.8 g/dL (11.5-17.4); TVOL 600 mL; pH(98.6) 7.48 (7.35-7.45)
[2018-08-18 05:08] LABS: MODALITY VENTILATOR
[2018-08-18 05:16] LABS: MAGNESIUM 1.6 mg/dL (1.5-2.7); PHOSPHORUS 2.8 mg/dL (2.7-4.5)
[2018-08-18 05:53] LABS: AGAP 18; ALBUMIN 2.6 g/dL (3.5-5.0); ALKALINE PHOSPHATASE 101 U/L (32-122); BUN 27 mg/dL (8-22); CHLORIDE 109 mmol/L (98-107); COSMO 297; CREATININE 0.5 mg/dL (0.7-1.2); ESTIMATED GFR > 60; GLUCOSE 121 mg/dL (70-104); GOT 82 U/L (10-34); GPT 373 U/L (10-44); SODIUM 146 mmol/L (136-145); TCO2 19 mmol/L (25-35); TOTAL BILIRUBIN 1.13 mg/dL (0.20-1.00); TOTAL PROTEIN 5.1 g/dL (6.3-8.3)
[2018-08-18] MEDS: PRILOSEC PO SCH (06:14)
[2018-08-18 06:22] LABS: POTASSIUM 2.1 mmol/L (3.5-5.1)
[2018-08-18] MEDS ORDERED: POTASSIUM CHLORIDE 20% LIQUID NG ONE (06:29)
[2018-08-18] MEDS ORDERED: POTASSIUM CHLORIDE 40 MEQ/SWI 40 MEQ/100 ML IVPB IV ONE (06:29)
[2018-08-18 07:05] LABS: BANDS 2 % (0-1); LYMPHS 4 % (21-51); SEGS 94 % (42-75)
[2018-08-18 07:06] LABS: MICROCYTOSIS 1+
--- NOTE | 2018-08-18 07:50 | Diag Imaging Result Doc PS360 ---
CHEST-PORTABLE - 08/18/2018 INDICATION: respiratory failure COMPARISON: 08/17/2018 FINDINGS: Support lines and tubes are stable. Lung volumes are lower. Accounting for this there is no change in the hazy bibasilar infiltrates. There are probably small pleural effusions. Heart size appears top normal. IMPRESSION: Lower lung volumes. Otherwise no significant change from prior. Electronically signed by Dago Houston 08/18/2018 7:48 AM
[2018-08-18] MEDS: PULMICORT INH SCH ×2 (07:56→19:00)
[2018-08-18] MEDS: POTASSIUM CHLORIDE 60 MEQ in NS 500 ML IV SCH ×2 (08:13→15:53)
[2018-08-18] MEDS: NEURONTIN PO SCH ×2 (08:35→20:25)
[2018-08-18] MEDS: SOLU-CORTEF IV SCH ×3 (08:35→23:57)
[2018-08-18] MEDS: LASIX IV SCH ×2 (08:35→20:19)
[2018-08-18] MEDS: MAALOX PLUS LIQUID PO SCH (08:35)
[2018-08-18] MEDS: PROSCAR PO SCH (08:35)
[2018-08-18] MEDS: ZINC SULFATE PO SCH ×2 (08:35→20:19)
[2018-08-18] MEDS: VITAMIN D PO SCH (08:35)
[2018-08-18] MEDS: CARAFATE PO SCH ×2 (08:35→20:19)
[2018-08-18] MEDS: LEXAPRO PO SCH (08:35)
[2018-08-18] MEDS: ALBUMIN 25% IV SCH ×2 (08:36→20:25)
[2018-08-18] MEDS: DITROPAN PO SCH ×2 (08:36→20:19)
[2018-08-18] MEDS: CORDARONE PO SCH (08:36)
[2018-08-18] MEDS: SANTYL OINT TOP SCH (08:37)
[2018-08-18] MEDS: LOTRIMIN 1% CREAM TOP SCH ×2 (08:37→22:05)
--- NOTE | 2018-08-18 09:08 | PROGRESS NOTE ---
DATE: 08/18/2018 SUBJECTIVE: The patient is intubated and not sedated. He does answer basic questions by moving his head and also follows basic commands like squeezing my fingers. The patient is requiring only 1 vasopressor, actually small doses of Isaac-Synephrine. No acute issues noted as per nursing staff overnight. OBJECTIVE: Vital Signs: Temperature 97.4, heart rate 65, respiratory rate 20, blood pressure 106/54. O2 saturation 100% on mechanical ventilator. FiO2 of 40%. General: This is a chronically ill-appearing,72-year-old male lying in bed in no acute distress intubated. Anasarca. HEENT: Head is normocephalic, atraumatic. Mucous membranes very dry. Anicteric sclerae and pale conjunctivae. Neck: No JVD noted. No carotid bruits. No lymphadenopathy. No thyromegaly. Cardiovascular: S1, S2 heard. No murmurs, gallops, or rubs. Regular rate and rhythm. Respiratory: Very minimal coarse breath sounds noted in both pulmonary bases. He definitely sounds much better in comparing with the last 3 to 4 days. The patient is not using any accessory muscles or having work of breathing. Abdomen: Soft. A little bit distended with colostomy bag noted with stools in it, and also suprapubic catheter as well. Extremities: The patient has anasarca with swelling in both upper and lower extremities unchanged in comparing with the last 2 days. Neurological: Patient is paraplegic from the waist below. Patient is a little bit sleepy following basic commands. LABORATORY DATA: White cell count 11.63, hemoglobin 7, hematocrit 24.1, and platelets 237,000. ABG shows pH 7.43, with pCO2 27, PO2 125, that sample was taken on ventilator. FiO2 of 40%. Lactate is back to normal. BMP remarkable for potassium 2.1, calcium 8.0. AFP 82 and ALT 373 with albumin 2.6. Urine output has been positive during the last few days. ASSESSMENT AND PLAN: 1. Acute respiratory failure. secondary to bilateral pneumonia. Clinically, this patient is doing good requiring less oxygen supplementation. For the last 2 days, patient is to require FiO2 of 40%. CO2 is slow because most likely he is hyperventilating. X-ray from today shows stable chest. Pulmonary is following this patient. We will follow recommendations. I think today if okay with pulmonary, we can try weaning trials and see how he does. 2. Septic shock secondary to bilateral pneumonia, multiple pressure ulcers and left hip osteomyelitis. Patient clinically is also doing good. During the last 2 to 4, days he was requiring vasopressors 2 of them, Isaac-Synephrine and Levophed. Levophed has been stopped but Isaac- Synephrine we were trying to wean off of this medication. White cell count which was almost 40,000 4 days ago, today is almost close to normal 11,000. Currently, he is on ceftriaxone and Levaquin day #[address] Guevara is directing antibiotics. We will continue with the same management. 3. Atrial fibrillation with rapid ventricular response, resolved. 4. Shock liver. AST and ALT continues to improve dramatically. We will continue to monitor CMP daily. 5. Anemia of chronic disease. Hemoglobin has fallen to 7.0. I do not know if that is dilutional, but in any case I am going to transfuse 1 unit of blood. 6. History of aortic dissection following paraplegia is stable. 7. Code status. Full code. 8. Disposition. We will continue to monitor this patient closely in the intensive care unit. TIME SPENT: Critical care time is 40 minutes. cc: Carlos Shaver MD MTDD
--- NOTE | 2018-08-18 10:24 | INFECTIOUS DISEASE PROGRESS NO ---
DATE: 08/18/2018 PRESENT ILLNESS: The patient has bibasilar pneumonia, multiple infected decubitus ulcers, septic hip arthritis on the left side, and urinary tract infection. MEDICATIONS: The patient is on a combination now of Rocephin and Levaquin. He has been on this for 4 days. PHYSICAL EXAMINATION: Vital Signs: Temperature is 98 degrees, pulse 61, respirations 20, blood pressure is 103/49. General: This is an ill-appearing elderly male. He is intubated. Head, Eyes, Ears, Nose, and Throat: No drainage noted from the nose or ears. There is an orotracheal tube in place. Neck: No apparent pain with passive movement of the neck. Lungs: Clear to auscultation. Cardiovascular: Heart rate is regular. Abdomen: Soft and nontender the patient has a PICC present in his right arm. The site is not erythematous or draining. LABORATORY AND X-RAY: The patient's CBC showed shows the white count is down to 11,630, hemoglobin 7, platelet count 237,000. The blood gases show a pH of 7.48, a PO2 of 125, and a pCO2 of 27. Creatinine is 0.8. GFR is greater than 60. All of the patient's liver function tests have improved. ALT is down to 373. The AST is down to 82. Urine culture grew Stenotrophomonas. Left hip and buttock wounds grew Acinetobacter. The left hip wound extends to the joint, thus making the infection also causing septic arthritis. Chest x-ray shows bibasilar infiltrates. ASSESSMENT AND PLAN: Patient has pneumonia, septic arthritis, a urinary tract infection, and infected decubitus ulcers. My plan is to continue Levaquin and Rocephin. The patient's white count has consistently come down. The liver functions tests, especially the AST and ALT, were very high and now they are coming down dramatically also. Finally, he is not having a fever. 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 He also has gastroesophageal reflux disease, COPD, and cigarette smoking. cc: Adán Guevara MD
[2018-08-18] MEDS: ROCEPHIN 2 GM in NS 50 ML IV SCH (14:21)
[2018-08-18] MEDS: CLINIMIX E 4.25%-5% SOLUTION 1,000 ML IV SCH (14:21)
[2018-08-18] MEDS: LEVAQUIN 750 MG/D5W 750 MG/150 ML IVPB IV SCH (17:26)
--- NOTE | 2018-08-18 18:52 | PULMONOLOGY PROGRESS NOTE ---
DATE: 08/18/2018 SUBJECTIVE: The patient does respond some to painful stimuli and will open his eyes to voice. His vasopressors are being decreased and he is on a small amount of Isaac-Synephrine. OBJECTIVE: Vital Signs: He is afebrile. Blood pressure 95/47, heart rate 66, respiratory rate 22, oxygen saturation 100%. HEENT: Pupils are equal and reactive. Oropharynx is clear but evaluation is limited. Neck: Supple. Chest: Reveals good air entry bilaterally with occasional rhonchi. Cardiac: S1-S2. Abdomen: Soft with decreased bowel sounds. Extremities: Reveal edema in the left upper extremity with generalized edema in both lower extremities. LABORATORIES: White blood count 11.6, hemoglobin 7.0, platelet count 237,000. Sodium 146, potassium 2.1, chloride 109, bicarbonate 19, BUN 27, creatinine 0.5. Chest x-ray reveals slight improvement over the last 72 hours. IMPRESSION: A 72-year-old with: 1. Pneumonia/acute respiratory distress syndrome. 2. Acute hypoxemic respiratory failure. 3. Septic shock with slow improvement. 4. Chronically infected left hip joint. 5. Chronic decubitus ulcers. 6. Paroxysmal atrial fibrillation. 7. Acute renal failure, which is stable. 8. Severe protein calorie malnutrition. 9. Resolving shock liver. RECOMMENDATIONS: 1. Continue ventilatory support. 2. Continue to wean vasopressors as tolerated. 3. We will initiate Clinimix and tube feeds as tolerated. If tube feeds are tolerated, the rate will be increased and Clinimix will be weaned off. 4. Ongoing end of life discussions. The patient's overall prognosis is poor for long-term survival. CRITICAL CARE TIME: Thirty-plus minutes. cc: Haroldo Maciel MD
[2018-08-18] MEDS: XARELTO PO SCH (20:19)
[2018-08-18] MEDS: SINGULAIR PO SCH (20:19)
[2018-08-19] MEDS: NEO-SYNEPHRINE 50 MG in NS 250 ML IV SCH ×3 (01:34→21:21)
[2018-08-19] MEDS: ATROVENT NEB INH SCH ×6 (03:19→23:05)
[2018-08-19] MEDS: XOPENEX NEB INH SCH ×6 (03:20→23:05)
[2018-08-19] MEDS: CLINIMIX E 4.25%-5% SOLUTION 1,000 ML IV SCH ×2 (03:23→15:59)
[2018-08-19 05:13] LABS: ALLEN TEST YES; BE -2.8 mmoll (-3.0-3.0); BLOOD TYPE ARTERIAL; HCO3-(ACT) 22.8 mmoll (20.0-26.0); METHB 1.3 % (0.0-1.5); O2(CT) 9.8 mL/dL (15.0-23.0); PCO2(98.6) 29 mmHg (35-45); PO2(98.6) 135 mmHg (60-100); SAMPLE BLOOD; SRATE 15 BPM; TVOL 600 mL; pH(98.6) 7.46 (7.35-7.45)
[2018-08-19 05:14] LABS: MODALITY VENTILATOR
[2018-08-19] MEDS: PROTONIX IV SCH (05:34)
[2018-08-19] MEDS: SODIUM CHLORIDE 0.9% INJ SCH (05:34)
[2018-08-19 05:49] LABS: BASO# 0.04 X1000 (0.0-0.2); BASO% 0.2 % (0.0-0.8); HEMATOCRIT 22.1 % (42.0-52.0); HEMOGLOBIN 6.4 g/dL (14.0-18.0); IMM GRAN# 0.62 X1000 (0.0-0.04); IMM GRAN% 3.8 % (0.0-0.5); LYMPH# 0.99 X1000 (1.2-3.4); MCH 20.1 PG (27-31); MCV 69.5 FL (81-99); MONO# 1.12 X1000 (0.11-0.59); MONO% 6.8 % (1.7-9.3); MPV 10.1 FL (7.4-10.4); NEUT% 83.2 % (42.2-75.2); PLT 191 X1000 (130-400); RBC 3.18 XMIL (4.7-6.1); WBC 16.37 X1000 (4.8-10.8)
[2018-08-19 06:11] LABS: MAGNESIUM 1.7 mg/dL (1.5-2.7); PHOSPHORUS 2.9 mg/dL (2.7-4.5)
[2018-08-19 06:14] LABS: LYMPHS 6 % (21-51); MICROCYTOSIS 2+; NRBC 2 % (0-0); SEGS 94 % (42-75)
[2018-08-19 06:15] LABS: AGAP 16; ALB/GLOB RATIO 1.7; ALBUMIN 3.3 g/dL (3.5-5.0); ALKALINE PHOSPHATASE 85 U/L (32-122); BUN 38 mg/dL (8-22); CALCIUM 8.8 mg/dL (8.8-10.2); CHLORIDE 112 mmol/L (98-107); COSMO 305; CREATININE 0.5 mg/dL (0.7-1.2); ESTIMATED GFR > 60; GLUCOSE 164 mg/dL (70-104); GOT 35 U/L (10-34); GPT 196 U/L (10-44); POTASSIUM 3.8 mmol/L (3.5-5.1); SODIUM 147 mmol/L (136-145); TCO2 19 mmol/L (25-35); TOTAL BILIRUBIN 0.68 mg/dL (0.20-1.00); TOTAL PROTEIN 5.2 g/dL (6.3-8.3)
--- NOTE | 2018-08-19 07:23 | Diag Imaging Result Doc PS360 ---
EXAM: CHEST-PORTABLE INDICATION: respiratory failure TECHNIQUE: One view COMPARISON: 08/18/2018 FINDINGS: Support tubes and lines are in stable positions. Hazy bibasilar infiltrates are approximately stable. There are likely very small effusions that are unchanged. No new consolidations are identified. Cardiac silhouette is stable. IMPRESSION: Stable chest. Electronically signed by Igor Mendoza 08/19/2018 7:21 AM
[2018-08-19] MEDS: PULMICORT INH SCH ×2 (07:30→19:20)
[2018-08-19] MEDS: TYLENOL PO PRN ×2 (08:06→14:59)
[2018-08-19] MEDS: SOLU-CORTEF IV SCH ×2 (08:06→15:59)
[2018-08-19] MEDS: PROSCAR PO SCH (08:06)
[2018-08-19] MEDS: MAALOX PLUS LIQUID PO SCH (08:06)
[2018-08-19] MEDS: ALBUMIN 25% IV SCH (08:06)
[2018-08-19] MEDS: LASIX IV SCH ×2 (08:06→21:40)
[2018-08-19] MEDS: CARAFATE PO SCH ×2 (08:06→21:40)
[2018-08-19] MEDS: VITAMIN D PO SCH (08:07)
[2018-08-19] MEDS: NEURONTIN PO SCH ×2 (08:07→21:40)
[2018-08-19] MEDS: ZINC SULFATE PO SCH ×2 (08:07→21:40)
[2018-08-19] MEDS: DITROPAN PO SCH ×2 (08:07→21:40)
[2018-08-19] MEDS: LEXAPRO PO SCH (08:07)
[2018-08-19] MEDS: CORDARONE PO SCH (08:07)
[2018-08-19] MEDS: SANTYL OINT TOP SCH (08:08)
[2018-08-19] MEDS: LOTRIMIN 1% CREAM TOP SCH ×2 (08:08→21:53)
--- NOTE | 2018-08-19 09:10 | Diag Imaging Result Doc PS360 ---
EXAM: ABDOMEN FLAT/UPRIGHT HISTORY: colon obstruction TECHNIQUE: Flat and upright, three views COMPARISON: None. FINDINGS: The bowel loops are not dilated. There is stool in the proximal and distal colon. Prominent degenerative spine changes with mild scoliosis. No organomegaly. There are multiple surgical clips in the left abdomen. Long-standing deformity to the pelvis and each hip. IMPRESSION: No bowel obstruction. Electronically signed by Alfie Mustafa 08/19/2018 9:08 AM
--- NOTE | 2018-08-19 09:20 | INFECTIOUS DISEASE PROGRESS NO ---
DATE: 08/19/2018 PRESENT ILLNESS: The patient has bibasilar pneumonia, multiple infected decubitus ulcers, septic left hip arthritis, and urinary tract infection. MEDICATIONS: The patient is on his 5th day of treatment with Rocephin and Levaquin. PHYSICAL EXAMINATION: Vital Signs: Temperature is 99 degrees, pulse 71, respirations 18, blood pressure 113/54. General: This is an ill-appearing elderly male. He is intubated. Head/eyes/ears/nose/throat: He has an orotracheal tube in place. There is no drainage from the nose or ears. Neck: No stiffness. Lungs: Clear to auscultation. Cardiovascular: Heart rate is regular. Abdomen: Soft and nontender. The patient's ostomy has very little output in it. The patient also has a suprapubic tube in place. Neurologic: The patient did not respond to verbal stimuli. There is no tremor. LABORATORY AND X-RAY: Chest x-ray shows bibasilar infiltrates and effusions. AST is 35, ALT is 196, creatinine 0.5, GFR is greater than 60. Blood gases show a pH of 7.46, a PO2 of 135, and a pCO2 of 29. CBC shows a white count of 16,370, hemoglobin 6.4, and platelet count 191,000. ASSESSMENT AND PLAN: The patient has been on Rocephin and Levaquin now for 5 days. The patient has pneumonia, infected decubitus diet, septic hip arthritis and urinary tract infection. My plan is to continue with the combination of Rocephin and Levaquin. They have been given for 5 days. COMORBIDITY: Paralysis from the waist distally, gastroesophageal reflux disease, COPD, and cigarette smoking. cc: dAán Guevara MD [facility]
[2018-08-19] MEDS ORDERED: NS 250 ML IV SCH (11:00)
[2018-08-19] MEDS ORDERED: CITRATE OF MAGNESIA NG ONE (13:01)
--- NOTE | 2018-08-19 14:09 | PULMONOLOGY PROGRESS NOTE ---
DATE: 08/19/2018 SUBJECTIVE: The patient is arousable. He remains weak. He remains on vasopressors. OBJECTIVE: Vital Signs: Blood pressure 120/659, heart rate 74, respiratory rate 17, oxygen saturation 100%. HEENT: Pupils are equal and reactive. Oropharynx is clear. Neck is supple. Chest reveals coarse rhonchi bilaterally. Cardiac: S1, S2. Abdomen is soft with rare bowel sounds. Extremities reveal chronic edema. DIAGNOSTIC STUDIES: Chest x-ray reveals faint bilateral infiltrates and small effusions without significant change, but improvement over the last several days. White blood count 16.37, hemoglobin 6.4, platelet count 191,000. Chemistry: Sodium 147, potassium 3.8, chloride 112, bicarbonate 18, BUN 38, creatinine 0.5, total protein 5.2, albumin 3.3. Arterial blood gas reveals a pH 7.46, pCO2 of 29, PO2 of 135 with a lactate of 3.3. IMPRESSION: A 72-year-old with: 1. Pneumonia/acute respiratory distress syndrome. 2. Septic shock with ongoing vasopressor requirements. 3. Acute hypoxemic respiratory failure. 4. Chronically infected left hip. 5. Chronic decubitus ulcers. 6. Paroxysmal atrial fibrillation. 7. Severe protein-calorie malnutrition. RECOMMENDATIONS: 1. Continue ventilatory support and begin weaning as tolerated. 2. Continue Clinimix and tube feeds as tolerated. We will increase tube feed rate tomorrow if he tolerates tube feeds today. 3. Wean vasopressors as tolerated. PROGNOSIS: Overall prognosis remains guarded. Case was discussed with the family. TIME SPENT IN CRITICAL CARE: 30+ minutes. cc: Haroldo Maciel MD
[2018-08-19] MEDS: ROCEPHIN 2 GM in NS 50 ML IV SCH (14:32)
[2018-08-19] MEDS: LEVAQUIN 750 MG/D5W 750 MG/150 ML IVPB IV SCH (15:59)
[2018-08-19] MEDS: ATIVAN IV PRN (16:55)
--- NOTE | 2018-08-19 17:53 | PROGRESS NOTE ---
DATE: 08/19/2018 SUBJECTIVE: The patient is currently intubated and on the ventilator. No acute events noted overnight. OBJECTIVE: Vital Signs: Temperature 97.8, blood pressure 119/57, heart rate 70, respirations 18. O2 sats 100% on the mechanical ventilator. Urine output 1.5 L. General: This is a chronically ill-appearing elderly male lying in bed in no acute distress. HEENT: Head normocephalic, atraumatic. Skin: The patient has multiple decubitus ulcerations. Heart: S1, S2 normal. Regular rate and rhythm. Lungs: Equal air entry bilaterally. No wheezing. No rales. Abdomen: Positive bowel sounds. Soft, nontender, nondistended. Extremities: There is 3+ edema in the upper extremities, 2+ edema in the lower extremities. Neurologic: The patient is minimally responsive. He will open his eyes when his name is called. LABS: White blood cell count 16, hemoglobin 6.4, hematocrit 22, platelets 191,000. Sodium 147, potassium 3.8, chloride 112, CO2 19, BUN 38, creatinine 0.5, glucose 164, magnesium 1.7. AST 35, ALT 196. Chest x-ray reveals hazy bibasilar infiltrates. Abdominal x-ray shows no bowel obstruction. ASSESSMENT AND PLAN: 1. Acute hypoxemic respiratory failure. Continue with treatment for pneumonia and vent management as per the drapery cutter. 2. Bibasilar pneumonia. Continue with antibiotic therapy as directed by Dr. Guevara. 3. Multiple infected decubitus ulcerations. Continue with wound care and antibiotic therapy. 4. Septic arthritis of the left hip. The patient is on antibiotic therapy. 5. Urinary tract infection secondary to Stenotrophomonas. Continue with antibiotic therapy. 6. Hypernatremia. Will monitor the sodium closely. The patient may need more free water through the NG. 7. Constipation. Laxative has been ordered for the patient. 8. Septic shock. The patient remains on Isaac-Synephrine. Hopefully, the patient will be able to be weaned off of pressor support soon. 9. Shock liver. Improved. Continue to monitor closely. 10. Atrial fibrillation. The patient is rate controlled. 11. Anemia. Will transfuse 1 unit of packed red blood cells today and monitor the patient's response. 12. GI prophylaxis. Continue on Protonix. 13. DVT prophylaxis. The patient is currently on Xarelto. 14. Disposition. The patient is critically ill with a high risk of mortality. The patient is currently a full code. Palliative care is following for goals of care. cc: Charleen Mojica MD MTDD
[2018-08-19 20:17] LABS: HEMATOCRIT 25.8 % (42.0-52.0); HEMOGLOBIN 7.7 g/dL (14.0-18.0)
[2018-08-19] MEDS: XARELTO PO SCH (21:40)
[2018-08-20] MEDS: SOLU-CORTEF IV SCH ×3 (00:17→16:20)
[2018-08-20] MEDS: XOPENEX NEB INH SCH ×6 (04:05→22:37)
[2018-08-20] MEDS: ATROVENT NEB INH SCH ×6 (04:05→22:37)
[2018-08-20 05:05] LABS: ALLEN TEST YES; BE -0.2 mmoll (-3.0-3.0); BLOOD TYPE ARTERIAL; HCO3-(ACT) 24.8 mmoll (20.0-26.0); METHB 1.2 % (0.0-1.5); O2(CT) 13.1 mL/dL (15.0-23.0); O2HB 95.8 % (95.0-99.0); PCO2(98.6) 36 mmHg (35-45); PO2(98.6) 101 mmHg (60-100); SAMPLE BLOOD; SAO2 99.1 % (95.0-100.0); SRATE 10 BPM; THB 9.6 g/dL (11.5-17.4); TVOL 600 mL; pH(98.6) 7.43 (7.35-7.45)
[2018-08-20 05:06] LABS: MODALITY VENTILATOR
[2018-08-20 05:22] LABS: BASO# 0.04 X1000 (0.0-0.2); BASO% 0.2 % (0.0-0.8); HEMATOCRIT 26.3 % (42.0-52.0); HEMOGLOBIN 7.9 g/dL (14.0-18.0); IMM GRAN# 0.93 X1000 (0.0-0.04); IMM GRAN% 4.5 % (0.0-0.5); LYMPH# 1.18 X1000 (1.2-3.4); LYMPH% 5.8 % (20.5-51.1); MCH 21.6 PG (27-31); MCV 72.1 FL (81-99); MONO# 1.37 X1000 (0.11-0.59); MONO% 6.7 % (1.7-9.3); MPV 10.9 FL (7.4-10.4); NEUT# 16.93 X1000 (1.4-6.5); NEUT% 82.8 % (42.2-75.2); PLT 158 X1000 (130-400); RBC 3.65 XMIL (4.7-6.1); RDW 20.4 % (11.5-14.5); WBC 20.45 X1000 (4.8-10.8)
[2018-08-20] MEDS: PROTONIX IV SCH (05:33)
[2018-08-20] MEDS: CLINIMIX E 4.25%-5% SOLUTION 1,000 ML IV SCH ×3 (05:33→21:13)
[2018-08-20] MEDS: SODIUM CHLORIDE 0.9% INJ SCH (05:34)
[2018-08-20 05:48] LABS: MAGNESIUM 2.4 mg/dL (1.5-2.7); PHOSPHORUS 2.8 mg/dL (2.7-4.5)
[2018-08-20 06:53] LABS: HYPOCHROM 1+; LYMPHS 6 % (21-51); MICROCYTOSIS 1+; NRBC 2 % (0-0); SEGS 94 % (42-75)
[2018-08-20] MEDS: PULMICORT INH SCH ×2 (07:10→19:35)
[2018-08-20 07:44] LABS: AGAP 12; ALB/GLOB RATIO 1.9; ALBUMIN 3.3 g/dL (3.5-5.0); ALKALINE PHOSPHATASE 109 U/L (32-122); BUN 46 mg/dL (8-22); CALCIUM 8.5 mg/dL (8.8-10.2); CHLORIDE 116 mmol/L (98-107); COSMO 318; CREATININE 0.5 mg/dL (0.7-1.2); ESTIMATED GFR > 60; GLUCOSE 182 mg/dL (70-104); GOT 24 U/L (10-34); GPT 131 U/L (10-44); POTASSIUM 2.6 mmol/L (3.5-5.1); SODIUM 152 mmol/L (136-145); TCO2 24 mmol/L (25-35); TOTAL BILIRUBIN 0.69 mg/dL (0.20-1.00)
--- NOTE | 2018-08-20 07:55 | Diag Imaging Result Doc PS360 ---
EXAM: CHEST-PORTABLE INDICATION: respiratory failure TECHNIQUE: One view COMPARISON: 08/19/2018 FINDINGS: Support tubes and lines are in stable positions. Hazy bibasilar infiltrates are essentially unchanged. No new consolidation is identified. Cardiac silhouette is stable. IMPRESSION: Stable chest. Electronically signed by Igor Mendoza 08/20/2018 7:53 AM
[2018-08-20] MEDS ORDERED: MERREM 1 GM in NS 50 ML IV SCH (08:00)
--- NOTE | 2018-08-20 08:08 | INFECTIOUS DISEASE PROGRESS NO ---
DATE: 08/20/2018 PRESENT ILLNESS: The patient has the following infections: Bibasilar pneumonia, multiple infected decubitus ulcers, septic left hip arthritis, and a urinary tract infection. The urinary tract infection is caused by Stenotrophomonas. The other infections are caused by Acinetobacter. This is the 6th day of treatment for the infections. PHYSICAL EXAMINATION: Vital Signs: Temperature is 98 degrees, pulse 71, respirations 18, blood pressure 117/58. General: This is an ill-appearing male. He is intubated and sedated. Head, Eyes, Ears, Nose, and Throat: An orotracheal tube is in place. There is no drainage from the nose or ears. I did not get a good look at the patient's mouth. Neck: Seemed to be no pain with movement. Lungs: Clear to auscultation. Cardiovascular: Heart rate is regular. Abdomen: Soft and nontender. The patient's ostomy continues to have very little output. The patient also has a suprapubic tube in place. The tube site is not erythematous or purulent. Extremities: The patient has a PICC in the right arm. The site is not erythematous or purulent. LABORATORY AND X-RAY: An x-ray yesterday showed that the patient had bibasilar infiltrates which were stable. An x-ray has been done today but it has not yet been read by the radiologist. When I look at the chest x-ray, it appears to me that there are still bibasilar infiltrates. ASSESSMENT AND PLAN: The patient has been on Rocephin and Levaquin for 5 days. The patient is getting Clinimix and that can bind with Rocephin and make it ineffective. Therefore, I am going to discontinue Rocephin and start the patient on meropenem. I plan to continue Levaquin now. The patient's infections being treated include pneumonia, infected decubitus ulcers, septic hip arthritis, and a urinary tract infection. This will be the 6th day of treatment with the infections. COMORBIDITIES: The patient is paralyzed from the waist distally. He also has gastroesophageal reflux disease, COPD, and the patient is a cigarette smoker. cc: Adán Guevara MD
[2018-08-20] MEDS ORDERED: POTASSIUM CHLORIDE 60 MEQ in NS 500 ML IV ONE ×2 (08:23→16:01)
[2018-08-20] MEDS: MERREM 1 GM in NS 50 ML IV SCH ×2 (08:41→16:20)
[2018-08-20] MEDS: NEO-SYNEPHRINE 50 MG in NS 250 ML IV SCH ×2 (08:41→18:40)
[2018-08-20] MEDS: DITROPAN PO SCH ×2 (09:33→21:14)
[2018-08-20] MEDS: CARAFATE PO SCH ×2 (09:33→21:15)
[2018-08-20] MEDS: ZINC SULFATE PO SCH ×2 (09:33→21:14)
[2018-08-20] MEDS: MAALOX PLUS LIQUID PO SCH (09:33)
[2018-08-20] MEDS: PROSCAR PO SCH (09:33)
[2018-08-20] MEDS: CORDARONE PO SCH (09:33)
[2018-08-20] MEDS: NEURONTIN PO SCH ×2 (09:33→21:14)
[2018-08-20] MEDS: LASIX IV SCH ×2 (09:34→21:13)
[2018-08-20] MEDS: SANTYL OINT TOP SCH (09:35)
[2018-08-20] MEDS: VITAMIN D PO SCH (09:36)
[2018-08-20] MEDS ORDERED: REGLAN IV SCH (09:45)
[2018-08-20] MEDS: LOTRIMIN 1% CREAM TOP SCH ×2 (09:58→21:16)
--- NOTE | 2018-08-20 10:24 | INFECTIOUS DISEASE PROGRESS NO ---
DATE: 08/20/2018 ADDENDUM: I discussed the patient with Dr. Maciel and I certainly agree with his plan to obtain a CT scan of the abdomen and pelvis. I forgot to mention that the patient's white blood cell count is increasing. As I mentioned in my report, the patient had been on Rocephin and it is inactivated by Clinimix which the patient has been getting. That is the reason why I went ahead and stopped the Rocephin and put the patient on meropenem to see if the patient's white count would come down also. cc: Adán Guevara MD MTDD
--- NOTE | 2018-08-20 12:02 | PULMONOLOGY PROGRESS NOTE ---
DATE: 08/20/2018 SUBJECTIVE: The patient is sedated. He appears to be comfortable on mechanical ventilation. OBJECTIVE: Vital Signs: Maximum temperature in the last 24 hours 99.7 degrees. He remains on Isaac-Synephrine. Blood pressure 117/58, heart rate 72, respiratory rate 17, oxygen saturation 99%. Intake 4730, output 3050. HEENT: Pupils are equal and reactive. Oropharynx appears clear. Neck: Supple. Chest: Coarse crackles and rhonchi bilaterally. Cardiac: S1, S2. Abdomen: Soft with positive output from his ostomy bag. Extremities: Reveal generalized edema. LABORATORY DATA: White blood count is increased to 20,000, hemoglobin 7.9, platelet count 158,000. Sodium 152, potassium 2.6, chloride 116, bicarbonate 24, BUN 46, creatinine 0.5. Arterial blood gas reveals pH 7.43, pCO2 of 36, PO2 of 101. IMAGING: Chest x-ray reveals stable bilateral infiltrates. IMPRESSION: 72-year-old with: 1. Pneumonia. 2. Septic shock with ongoing vasopressor requirements. 3. Increasing leukocytosis. 4. Acute hypoxemic respiratory failure. 5. Chronically infected left hip and decubitus ulcers. 6. Severe protein calorie malnutrition. 7. Paroxysmal atrial fibrillation. RECOMMENDATIONS: 1. Agree with increased water replacement on tube feeds and potassium replacement as ordered by Dr. Mojica. 2. Continue current antibiotic regimen by Dr. Adán Guevara. 3. Obtain CT scan of the abdomen and pelvis to see if a drainage procedure is necessary for his chronically infected hip due to ongoing vasopressor requirements and increasing leukocytosis. 4. Prognosis is guarded to poor. TIME SPENT ON CRITICAL CARE: 30+ minutes. cc: Haroldo Maciel MD
--- NOTE | 2018-08-20 13:26 | Diag Imaging Result Doc PS360 ---
EXAM: CT ABD/PELVIS W/ORAL CONT ONLY 08/20/2018 HISTORY: leukocytosis and sepsis TECHNIQUE: This exam was performed using automated exposure control, adjustment of mA or kV according to patient size, and/or use of iterative reconstruction technique. COMMENT: The current examination is compared with the previous study of 07/25/2017. There are bilateral pleural effusions. This was not the case at the time the previous study. There is compressive atelectasis in both lower lobes. There is anasarca and ascites. There is ill-defined groundglass opacity present in the inferior right upper lobe and lingula. This may be indicative of pulmonary edema and/or pneumonia. There is increased density around the pancreas generally which may indicate interstitial pancreatitis. There are densely calcified subcentimeter gallstones in the neck of the gallbladder. There is atherosclerotic calcification in the aorta and its branches including the renal arteries. There may be a calyceal stone in the upper pole of the right kidney. This was also present at the time the previous study. There is decreased attenuation in the aorta which may be indicative of anemia. Pelvis: There is a suprapubic tube in the bladder. There is gas in the left hip joint which is eroded, and there may be a fistula laterally which is not included on the image due to being off the [id number]. Both hips are severely degenerated with fragmentation of the femoral heads. This is worse than on the previous study. There is also an apparent decubitus ulcer adjacent to the ischial tuberosity. There is sclerosis and erosion of the ischium and thick periosteal reaction. IMPRESSION: 1. Pulmonary edema and anasarca. Bilateral pleural effusions. 2. Apparent pancreatitis. 3. Cholelithiasis. 4. Right nephrolithiasis. 5. 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 Osteomyelitis in the left ischial tuberosity due to decubitus ulcer. Electronically signed by Kody Maitas 08/20/2018 1:24 PM
--- NOTE | 2018-08-20 15:06 | PROGRESS NOTE ---
DATE: 08/20/2018 SUBJECTIVE: The patient remains intubated and on the ventilator. He is also on Isaac-Synephrine. Attempts to wean the patient off of the Isaac-Synephrine have been unsuccessful. OBJECTIVE: Vital Signs: Temperature 98.6 degrees, blood pressure 125/62, heart rate 66, respirations 16, and O2 saturation 95% on the mechanical ventilator. Urine output 3 L. General: This is a chronically ill-appearing elderly male currently on the ventilator. HEENT: Head is normocephalic and atraumatic. Heart: S1, S2 normal. Regular rate and rhythm. Lungs: Coarse breath sounds bilaterally. Abdomen: Positive bowel sounds. Soft and nontender. Extremities: The patient has anasarca. Neurologic: The patient is lethargic and does not follow commands. LABORATORY: White blood cell count 20, hemoglobin 7.9, hematocrit 26, and platelets 158,000. Sodium 152, potassium 2.6, chloride 116, CO2 24, BUN 46, creatinine 0.5 glucose 182 and phosphorus 2.8. Abdominal CT revealed pulmonary edema. Anasarca. Bilateral pleural effusions. Cholelithiasis. Right nephrolithiasis. 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 ASSESSMENT AND PLAN: 1. Acute hypoxemic respiratory failure. Unchanged. The patient continues to require ventilatory support. We will continue to treat the underlying issues. Management as per the cell preparer. 2. Bibasilar pneumonia. Continue with antibiotic therapy as directed by Dr. Guevara. 3. Multiple infected decubitus ulcerations. Continue with wound care and antibiotic therapy. 4. Chronic left hip septic arthritis. Continue with antibiotic therapy. 5. Urinary tract infection secondary to Stenotrophomonas. Continue with antibiotics. 6. Hypernatremia. The free water has been increased via the patient's NG tube. We will continue to monitor closely for improvement. 7. Septic shock. The patient continues to require pressor support. The patient is also on stress dose steroids. 8. Hypokalemia. We will replace the patient's potassium. 9. Severe protein calorie malnutrition. The patient is receiving tube feeds. 10. Constipation. We will start the patient on Reglan and monitor him for response. 11. Leukocytosis. Worse. The patient's antibiotic regimen has been changed by Dr. Guevara. 12. Anemia. Stable. 13. Gastrointestinal prophylaxis. Continue on IV Protonix. 14. Disposition. The patient remains critically ill with a high risk of mortality. I spoke with via the phone and updated her on the patient's condition. cc: Charleen Mojica MD MTDD
[2018-08-20] MEDS: LEVAQUIN 750 MG/D5W 750 MG/150 ML IVPB IV SCH (16:20)
--- NOTE | 2018-08-20 19:45 | GENERAL SURGERY PROGRESS NOTE ---
DATE: 08/20/2018 SUBJECTIVE: Clinically about the same. Remains on the ventilator. Not really responsive. He is sedated. Left leg dressing is in place. His foot distal perfusion seems some better, but there is still some mottling. White count is up to 20, hematocrit is 26. Creatinine is 0.5. Potassium is low. ASSESSMENT AND PLAN: This is a 72-year-old gentleman, critically ill. He has septic arthritis, left hip. Possibly some improvement in septic type picture from his pneumonia and urinary tract infection, but he remains very ill. We will follow along with local wound care. No plans for surgical intervention. cc: Hector Arambula MD
[2018-08-20] MEDS: REGLAN IV SCH (21:14)
[2018-08-20] MEDS: XARELTO PO SCH (21:15)
[2018-08-21] MEDS: SOLU-CORTEF IV SCH ×3 (00:49→15:27)
[2018-08-21] MEDS: MERREM 1 GM in NS 50 ML IV SCH ×3 (00:49→15:27)
[2018-08-21] MEDS: XOPENEX NEB INH SCH ×6 (03:44→23:28)
[2018-08-21] MEDS: ATROVENT NEB INH SCH ×6 (03:45→23:28)
[2018-08-21 04:34] LABS: ALLEN TEST YES; BLOOD TYPE ARTERIAL; HCO3-(ACT) 25.6 mmoll (20.0-26.0); METHB 1.3 % (0.0-1.5); O2(CT) 13.7 mL/dL (15.0-23.0); PCO2(98.6) 37 mmHg (35-45); PO2(98.6) 70 mmHg (60-100); SAMPLE BLOOD; SAO2 96.2 % (95.0-100.0); SRATE 10 BPM; THB 10.4 g/dL (11.5-17.4); TVOL 600 mL; pH(98.6) 7.44 (7.35-7.45)
[2018-08-21 04:39] LABS: MODALITY VENTILATOR
[2018-08-21] MEDS: NEO-SYNEPHRINE 50 MG in NS 250 ML IV SCH ×2 (04:43→13:18)
[2018-08-21 06:17] LABS: BASO# 0.14 X1000 (0.0-0.2); BASO% 0.5 % (0.0-0.8); EOS# 0.01 X1000 (0.0-0.7); HEMATOCRIT 26.7 % (42.0-52.0); IMM GRAN# 1.93 X1000 (0.0-0.04); IMM GRAN% 7.3 % (0.0-0.5); LYMPH# 1.44 X1000 (1.2-3.4); LYMPH% 5.5 % (20.5-51.1); MCH 21.7 PG (27-31); MCV 72.6 FL (81-99); MONO# 1.85 X1000 (0.11-0.59); MPV 10.8 FL (7.4-10.4); NEUT# 21.01 X1000 (1.4-6.5); NEUT% 79.7 % (42.2-75.2); PLT 141 X1000 (130-400); RBC 3.68 XMIL (4.7-6.1); RDW 20.7 % (11.5-14.5); WBC 26.38 X1000 (4.8-10.8)
[2018-08-21] MEDS: PROTONIX IV SCH (06:41)
[2018-08-21 07:12] LABS: AGAP 12; ALB/GLOB RATIO 1.6; ALBUMIN 3.1 g/dL (3.5-5.0); ALKALINE PHOSPHATASE 120 U/L (32-122); BUN 47 mg/dL (8-22); CALCIUM 8.6 mg/dL (8.8-10.2); CHLORIDE 113 mmol/L (98-107); COSMO 314; CREATININE 0.4 mg/dL (0.7-1.2); ESTIMATED GFR > 60; GLUCOSE 174 mg/dL (70-104); GOT 27 U/L (10-34); GPT 105 U/L (10-44); POTASSIUM 3.3 mmol/L (3.5-5.1); SODIUM 150 mmol/L (136-145); TCO2 25 mmol/L (25-35); TOTAL BILIRUBIN 0.62 mg/dL (0.20-1.00)
[2018-08-21] MEDS ORDERED: POTASSIUM CHLORIDE 60 MEQ in NS 500 ML IV ONE (07:20)
[2018-08-21] MEDS: PULMICORT INH SCH ×2 (07:28→19:15)
--- NOTE | 2018-08-21 07:44 | Diag Imaging Result Doc PS360 ---
EXAM: CHEST-PORTABLE 08/21/2018 HISTORY: respiratory failure TECHNIQUE: AP portable at 0517 COMMENT: There is an endotracheal tube with its tip at thoracic inlet and an NG tube which passes below the diaphragm. There is bilateral pleural effusion. There is hazy pulmonary edema over both lung bases. Compared to 08/20/2018 this is slightly worse. IMPRESSION: Worsened pulmonary edema. Electronically signed by Kody Matias 08/21/2018 7:42 AM
[2018-08-21] MEDS: MAALOX PLUS LIQUID PO SCH (08:11)
[2018-08-21] MEDS: CARAFATE PO SCH ×2 (08:12→20:23)
[2018-08-21] MEDS: NEURONTIN PO SCH ×2 (08:12→20:23)
[2018-08-21] MEDS: VITAMIN D PO SCH (08:12)
[2018-08-21] MEDS: PROSCAR PO SCH (08:12)
[2018-08-21] MEDS: CORDARONE PO SCH (08:13)
[2018-08-21] MEDS: ZINC SULFATE PO SCH ×2 (08:13→20:23)
[2018-08-21] MEDS: DITROPAN PO SCH ×2 (08:14→20:23)
[2018-08-21] MEDS: LASIX IV SCH ×2 (08:15→20:22)
[2018-08-21] MEDS: REGLAN IV SCH ×2 (08:15→20:22)
[2018-08-21] MEDS: LOTRIMIN 1% CREAM TOP SCH ×2 (10:14→20:31)
[2018-08-21] MEDS: SANTYL OINT TOP SCH (10:15)
[2018-08-21] MEDS: CLINIMIX E 4.25%-5% SOLUTION 1,000 ML IV SCH (11:01)
--- NOTE | 2018-08-21 12:17 | PROGRESS NOTE ---
DATE: 08/21/2018 SUBJECTIVE: The patient remains lethargic, on the ventilator. No acute events noted overnight. The patient remains on a Isaac-Synephrine drip. OBJECTIVE: Vital Signs: Temperature 97 degrees, blood pressure 103/51, heart rate 75, respirations 19, O2 saturations 99% on the mechanical ventilator. Intake 6 L, output 5 L. General: This is a chronically ill-appearing, elderly male lying in bed, on the ventilator. HEENT: Head normocephalic and atraumatic. Heart: S1, S2 normal. Regular rate and rhythm. Lungs: Diminished breath sounds bilaterally. No wheezing. No rales. Abdomen: Positive bowel sounds. Soft, nontender, nondistended. Extremities: The patient has anasarca. Neurologic: The patient is lethargic and does not follow commands. Labs: White blood cell count 26, hemoglobin 8, hematocrit 26, platelets 141,000. Sodium 150, potassium 3.3, chloride 113, CO2 25, BUN 47, creatinine 0.4, glucose 174, calcium 8.6. AST 25, ALT 105, alkaline phosphatase 120. Chest x-ray shows worsening pulmonary edema. ASSESSMENT AND PLAN: 1. Acute hypoxemic respiratory failure. Unchanged. The patient continues to require ventilatory support. Management as per the legal specialist. 2. Acute pulmonary edema. Continue with diuretic therapy. 3. Bibasilar pneumonia. Unchanged. Continue with antibiotic therapy. 4. Multiple infected decubitus ulcerations. Continue with antibiotic therapy and wound care. 5. Left hip osteomyelitis. Continue with antibiotic therapy. 6. Hypernatremia. Slightly improved. Continue with free water via the nasogastric tube. 7. Septic shock. The patient continues to require Isaac-Synephrine. Continue with antibiotic therapy. 8. Severe protein calorie malnutrition. The patient is receiving tube feeds. 9. Hypokalemia. We will replace the patient's potassium. 10. Anemia. Stable. 11. Gastrointestinal prophylaxis. Continue on intravenous Protonix. 12. Disposition. The patient remains critically ill with a high risk of mortality. I updated the patient's at the bedside today about the patient's overall condition. cc: Charleen Mojica MD MTDD
[2018-08-21] MEDS: LEVAQUIN 750 MG/D5W 750 MG/150 ML IVPB IV SCH (15:26)
--- NOTE | 2018-08-21 18:15 | INFECTIOUS DISEASE PROGRESS NO ---
DATE: 08/21/2018 PRESENT ILLNESS: The patient has bibasilar pneumonia, multiple infected decubitus ulcers, septic left hip arthritis, and a urinary tract infection. The patient has Stenotrophomonas causing the urinary tract infection, and Acinetobacter is involved with the other infections. This is the 7th day of treatment for the infections. PHYSICAL EXAMINATION: Vital Signs: Temperature is 97.8 degrees, pulse 84, respirations 16, blood pressure 134/65. General: This is an ill-appearing male. He is intubated and sedated. Head, eyes, ears, nose, and throat: An orotracheal tube is in place. There is no drainage from his nose or ears. Neck: There seemed to be no pain with passive movement of the neck. Lungs had bilateral rhonchi. Cardiovascular: Heart rate is regular. Abdomen is soft and nontender. Today, the patient's ostomy has a good output. The patient also has a suprapubic catheter in place. The tube site is not swollen or purulent. Extremities: The patient has a PICC in the right arm. That site is not erythematous or purulent, either. DIAGNOSTIC STUDIES: Chest x-ray shows worsening pulmonary edema. CT scan of the abdomen and pelvis shows pulmonary edema, bilateral pleural effusions, pancreatitis, renal and gallbladder stones, and left hip and ischial osteomyelitis. ASSESSMENT AND PLAN: The patient has the infections as mentioned above. He does not seem to be getting any better. In fact, I think he is worsening. He has been on antibiotics for a total of 6 days, and currently the patient is receiving meropenem and Levaquin. I had a long discussion with the patient's , and I think she has reached the stage where she wants to do just comfort measures and let him while in the hospital. COMORBIDITIES: 1. 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 2. He has gastroesophageal reflux disease. 3. Chronic obstructive pulmonary disease (COPD). 4. The patient is a cigarette smoker. 5. He has multiple decubitus ulcers. 6. Unfortunately has a chronic hip osteomyelitis. cc: Adán Guevara MD
[2018-08-21] MEDS ORDERED: CALMOSEPTINE OINTMENT TOP PRN (18:56)
[2018-08-21] MEDS: XARELTO PO SCH (20:23)
--- NOTE | 2018-08-21 21:01 | PULMONOLOGY PROGRESS NOTE ---
DATE: 08/21/2018 SUBJECTIVE: The patient responds to pain but does not follow commands. OBJECTIVE: Vital Signs: The patient is afebrile. He remains on a significant dose of Isaac- Synephrine. BP 100/56, heart rate 83, respiratory rate 17, oxygen saturation 94%. HEENT: Pupils are equal. Oropharynx appears clear. Neck: Supple. Chest: Reveals coarse rhonchi bilaterally. Cardiac exam: S1-S2. Abdomen: Soft. Extremities: Reveal increasing peripheral edema. LABORATORIES: White blood count is increased to 26,000, hemoglobin 8.0, platelet count 141,000. Sodium 150, potassium 3.3, chloride 113, BUN 47, creatinine 0.7. Arterial blood gas reveals a pH 7.40, pCO2 of 37, pO2 of 70. Chest x-ray reveals increasing pleural effusions and pulmonary edema. IMPRESSION: A 72-year-old with: 1. Infected left hip. 2. Decubitus ulcers. 3. Urinary tract infection. 4. Ongoing septic shock. 5. Progressive leukocytosis. 6. Acute hypoxemic respiratory failure. 7. Severe protein calorie malnutrition. 8. Paroxysmal atrial fibrillation. DISCUSSION: A 72-year-old with problems outlined above. The patient had seen Orthopedic Surgery and General surgery multiple times in the past and disarticulation and amputation of the left leg has been recommended. The patient has declined to follow this pathway. Now he has ongoing sepsis, shock and protein calorie malnutrition. He had previously declined to have such an aggressive surgery and now he is not a candidate for such an aggressive surgery. He continues to decline. It is not clear that he will survive this hospital stay. RECOMMENDATIONS: 1. Continue vasopressors for ongoing septic shock. 2. Continue ventilatory support for ongoing respiratory failure. 3. Continue tube feeds. 4. Additional diuretic this evening. PROGNOSIS: Extremely poor. This was discussed with the . 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 Time spent in critical care management: 30+ minutes cc: MD PRAVEEN Delong
[2018-08-21] MEDS ORDERED: LASIX IV ONE (23:00)
[2018-08-22] MEDS: SOLU-CORTEF IV SCH ×3 (00:20→16:30)
[2018-08-22] MEDS: MERREM 1 GM in NS 50 ML IV SCH ×3 (00:20→16:30)
[2018-08-22] MEDS: ATIVAN IV PRN (00:33)
[2018-08-22] MEDS: NEO-SYNEPHRINE 50 MG in NS 250 ML IV SCH ×2 (02:53→14:16)
[2018-08-22] MEDS: CLINIMIX E 4.25%-5% SOLUTION 1,000 ML IV SCH ×2 (02:53→13:52)
[2018-08-22] MEDS: ATROVENT NEB INH SCH ×6 (03:05→23:16)
[2018-08-22] MEDS: XOPENEX NEB INH SCH ×6 (03:05→23:16)
[2018-08-22 04:55] LABS: ALLEN TEST YES; BE 5.4 mmoll (-3.0-3.0); BLOOD TYPE ARTERIAL; HCO3-(ACT) 29.1 mmoll (20.0-26.0); METHB 0.9 % (0.0-1.5); O2(CT) 12.1 mL/dL (15.0-23.0); O2HB 94.1 % (95.0-99.0); PCO2(98.6) 36 mmHg (35-45); PO2(98.6) 70 mmHg (60-100); SAMPLE BLOOD; SAO2 96.8 % (95.0-100.0); SRATE 10 BPM; THB 9.1 g/dL (11.5-17.4); TVOL 600 mL; pH(98.6) 7.51 (7.35-7.45)
[2018-08-22 04:57] LABS: MODALITY VENTILATOR
[2018-08-22] MEDS: PROTONIX IV SCH (05:08)
[2018-08-22] MEDS: SODIUM CHLORIDE 0.9% INJ SCH (05:08)
[2018-08-22 06:14] LABS: BASO# 0.21 X1000 (0.0-0.2); BASO% 0.8 % (0.0-0.8); HEMATOCRIT 28.8 % (42.0-52.0); HEMOGLOBIN 8.6 g/dL (14.0-18.0); IMM GRAN% 7.2 % (0.0-0.5); LYMPH# 1.47 X1000 (1.2-3.4); LYMPH% 5.3 % (20.5-51.1); MCHC 29.9 g/dL (33-37); MCV 73.7 FL (81-99); MONO# 1.81 X1000 (0.11-0.59); MONO% 6.5 % (1.7-9.3); MPV 11.1 FL (7.4-10.4); NEUT# 22.32 X1000 (1.4-6.5); NEUT% 80.2 % (42.2-75.2); PLT 181 X1000 (130-400); RBC 3.91 XMIL (4.7-6.1); RDW 21.5 % (11.5-14.5); WBC 27.81 X1000 (4.8-10.8)
--- NOTE | 2018-08-22 06:55 | Diag Imaging Result Doc PS360 ---
EXAM: CHEST-PORTABLE HISTORY: respiratory failure TECHNIQUE: Portable chest single view COMPARISON: 08/21/2018 FINDINGS: No change in the endotracheal tube, nasogastric tube, or right-sided PICC line. No cardiomegaly. Infiltrates in the lower lungs are less pronounced. Likely small pleural effusions. IMPRESSION: Mild interval improvement. Electronically signed by Alfie Mustafa 08/22/2018 6:53 AM
[2018-08-22 07:22] LABS: AGAP 12; ALB/GLOB RATIO 1.5; ALKALINE PHOSPHATASE 123 U/L (32-122); BUN 46 mg/dL (8-22); CALCIUM 8.3 mg/dL (8.8-10.2); CHLORIDE 106 mmol/L (98-107); COSMO 304; CREATININE 0.4 mg/dL (0.7-1.2); ESTIMATED GFR > 60; GLUCOSE 193 mg/dL (70-104); GOT 27 U/L (10-34); GPT 86 U/L (10-44); SODIUM 144 mmol/L (136-145); TCO2 26 mmol/L (25-35); TOTAL BILIRUBIN 0.71 mg/dL (0.20-1.00)
[2018-08-22 07:24] LABS: MAGNESIUM 2.1 mg/dL (1.5-2.7); PHOSPHORUS 2.4 mg/dL (2.7-4.5)
[2018-08-22] MEDS: PULMICORT INH SCH ×2 (07:32→19:57)
[2018-08-22 07:33] LABS: POTASSIUM 2.5 mmol/L (3.5-5.1)
[2018-08-22 07:36] LABS: LYMPHS 4 % (21-51); NRBC 3 % (0-0); SEGS 90 % (42-75)
[2018-08-22] MEDS ORDERED: POTASSIUM PHOSPHATE 40 MMOL in NS 250 ML IV ONE (07:46)
[2018-08-22] MEDS: ZINC SULFATE PO SCH ×2 (09:30→20:31)
[2018-08-22] MEDS: MAALOX PLUS LIQUID PO SCH (09:30)
[2018-08-22] MEDS: CARAFATE PO SCH ×2 (09:30→20:31)
[2018-08-22] MEDS: DITROPAN PO SCH ×2 (09:30→20:31)
[2018-08-22] MEDS: REGLAN IV SCH ×2 (09:30→20:31)
[2018-08-22] MEDS: LOTRIMIN 1% CREAM TOP SCH ×2 (09:30→21:50)
[2018-08-22] MEDS: CORDARONE PO SCH (09:30)
[2018-08-22] MEDS: LASIX IV SCH ×3 (09:30→21:50)
[2018-08-22] MEDS: SANTYL OINT TOP SCH (09:30)
[2018-08-22] MEDS: PROSCAR PO SCH (09:30)
[2018-08-22] MEDS: NEURONTIN PO SCH ×2 (09:30→20:30)
[2018-08-22] MEDS: VITAMIN D PO SCH (09:30)
--- NOTE | 2018-08-22 10:41 | PROGRESS NOTE ---
DATE: 08/22/2018 SUBJECTIVE: The patient remains lethargic, on the ventilator. No acute events noted overnight. OBJECTIVE: Vital Signs: Temperature 97.9 degrees, blood pressure 125/65, heart rate 87, respirations 17, O2 saturation 95% on the mechanical ventilator. Intake 4.5 L, output 5.6 L. General: This is a chronically ill-appearing elderly male, currently on the ventilator. HEENT: Head normocephalic atraumatic. Heart: S1, S2 normal. Regular rate and rhythm. Lungs: Equal air entry bilaterally. Diminished breath sounds. Abdomen: Positive bowel sounds. Soft. Extremities: The patient has anasarca. Neurologic: The patient is minimally responsive. LABORATORY DATA: White blood cell count 27, hemoglobin 8.6, hematocrit 28, platelets 181,000. Sodium 144, potassium 2.5, chloride 106, CO2 26, BUN 46, creatinine 0.4, glucose 193, calcium 8.3, phosphorus 2.4, AST 27, ALT 86, alkaline phosphatase 123. Chest x-ray, mild interval improvement. ASSESSMENT AND PLAN: 1. Acute hypoxemic respiratory failure, unchanged. The patient continues to require ventilatory support. Management as per the clinic mgr. 2. Acute pulmonary edema. Marginal improvement. Continue with diuretic therapy. 3. Bibasilar pneumonia. Continue on antibiotic therapy. 4. Multiple infected decubitus ulcerations. Continue with wound care and antibiotics. 5. Left hip osteomyelitis. The patient is not a surgical candidate. Continue with antibiotics. 6. Hypernatremia, improved. 7. Septic shock. The patient is currently on Isaac-Synephrine. Attempts to wean the patient off the medication have been unsuccessful. 8. Hypokalemia. Will replace the patient's potassium. 9. Severe protein calorie malnutrition. Continue with tube feeds. 10. Anemia. Stable. 11. Gastrointestinal prophylaxis. Continue on Protonix. 12. Disposition. The patient remains critically ill with a high risk of mortality. The patient is currently a full code. Palliative care is following for goals of care. cc: Charleen Mojica MD [facility]
[2018-08-22] MEDS: POTASSIUM CHLORIDE 20% LIQUID PO SCH ×2 (13:51→21:50)
--- NOTE | 2018-08-22 14:50 | INFECTIOUS DISEASE PROGRESS NO ---
DATE: 08/22/2018 PRESENT ILLNESS: Mr. Schulte has bibasilar pneumonia and is on the mechanical ventilator. He also has multiple decubitus ulcers and a septic left hip arthritis with Acinetobacter baumannii growing. There is also a Stenotrophomonas urinary tract infection. MEDICATIONS: He is receiving day 2 of meropenem 1 g IV every 8 hours, and day 8 of Levaquin 750 mg IV every 24 hours. PHYSICAL EXAMINATION: Vital Signs: Temperature is 97.9, pulse rate 82, respiratory rate 18, blood pressure 111/61, O2 saturation is 98% on a 30% FiO2 on the mechanical ventilator. General: This is a chronically ill-appearing elderly gentleman, he is lying in the bed currently in the midst of a bath on his left lateral side. No acute distress. HEENT: Atraumatic, normocephalic. Oral mucous membranes are difficult to visualize. There is oral ET tube in place. Conjunctivae are pale. Neck: Supple. Trachea is midline. Cardiovascular: Heart rate and rhythm are regular. Normal sinus rhythm on the monitor. There is 2 to 3+ pedal edema . Respiratory: Lung sounds have coarse rhonchi bilaterally. Abdomen: Soft, round, nontender. Bowel sounds are active. There is an NG tube in place. He is receiving tube feedings. There is a colostomy bag noted with brown liquid stool in the bag. Neurologic: He is awake, alert and nodding his head appropriately. Upper extremities are weak, and paraplegia from the waist down. There is a PICC line in place to the right upper arm. Site is without edema, erythema or drainage. LABORATORY AND X-RAY: Today his white count is 27.81, hemoglobin 8.6, platelet count 181,000. On a 30% FiO2 mechanical ventilator this morning his pH was 7.51, pCO2 36, pO2 70, HCO3 29.1. Creatinine is 0.4, estimated GFR is greater than 60, total bilirubin is 0.71, AST 27, ALT 86, alkaline phosphatase 123. Today his chest x-ray shows mild interval improvement with infiltrates in the lower lobes less pronounced. ASSESSMENT AND PLAN: Mr. Schulte is being treated for bilateral pneumonia, infected decubitus ulcers, septic left hip arthritis and a urinary tract infection. As has been previously noted with Mr. Schulte, he has the same bacteria growing from his left hip and his buttock wound. These wounds are chronic and will be difficult to resolve. He has bibasilar pneumonia which has improved slightly as well as a urinary tract infection, so we will continue his meropenem and Levaquin as ordered. These plans have been discussed with and recommended by Dr. Guevara. COMORBIDITIES: Include paraplegia from the waist down, gastroesophageal reflux disease, COPD and cigarette smoking. Dictated by ANILA Bowman for Adán Guevara MD This chart was documented by, ANILA Bowman and accurately reflects the services performed, treatment plan and medical decisions as attested by the providers signature Adán Guevara MD. cc: Adán Guevara MD [facility]ENTER[facility]
--- NOTE | 2018-08-22 16:14 | PULMONOLOGY PROGRESS NOTE ---
DATE: 08/22/2018 SUBJECTIVE: The patient is arousable to voice. He remains on Isaac-Synephrine. OBJECTIVE: Vital Signs: Blood pressure 108/52, heart rate 84, respiratory rate 19, oxygen saturation 96%. HEENT: Mild temporal wasting. Pupils are equal. Oropharynx appears clear. Neck: Supple. Chest: Reveals coarse breath sounds bilaterally. Cardiac: S1, S2. Abdomen: Soft, with positive bowel sounds. An ostomy output. Extremities: Reveal edema, left upper extremity greater than right upper extremity and bilateral lower extremity. LABORATORIES: Sodium 144, potassium 2.5, chloride 106, bicarbonate 26, BUN 46, creatinine 0.4. Arterial blood gas reveals a pH of 7.51, pCO2 of 36, PO2 of 70. White blood count 27.8, hemoglobin 8.6, platelet count 180,000. Chest x-ray reveals mild decreased edema/infiltrates in the lung bases. No new microbiology data. IMPRESSION: A 72-year-old with: 1. Infected left hip, with osteomyelitis with osteonecrosis. 2. Decubitus ulcers. 3. Urinary tract infection. 4. Severe protein calorie malnutrition. 5. Ongoing septic shock. 6. Acute hypoxemic respiratory failure. 7. Bilateral pleural effusions, likely due to protein calorie malnutrition. 8. Paroxysmal atrial fibrillation. DISCUSSION: A 72-year-old male with problems outlined above. He has had little supervisor records change the last 24 hours, although he may have had some marginal improvement. He is tolerating tube feeds. He remains on vasopressors. RECOMMENDATION: 1. Increase tube feeds for protein calorie malnutrition. 2. Continue diuretics with minor adjustment. We will attempt to make patient in negative fluid balance over the next 24 hours. 3. Continue Clinimix. 4. Replace potassium. He has received one supplementation this morning and will receive two additional doses by his feeding tube later today. 5. Ongoing end of life discussions. The patient's realizes that his prognosis is poor. She realizes that he previously has refused to have his leg removed, which would have been a life- saving maneuver. She reports she is having some difficulty with her son accepting Mr. Schulte's illness. Time spent in critical care management: 30+ minutes cc: Haroldo Maciel MD [facility]
[2018-08-22] MEDS: LEVAQUIN 750 MG/D5W 750 MG/150 ML IVPB IV SCH (16:30)
[2018-08-22] MEDS: XARELTO PO SCH (20:31)
[2018-08-23] MEDS: SOLU-CORTEF IV SCH ×4 (00:12→23:06)
[2018-08-23] MEDS: MERREM 1 GM in NS 50 ML IV SCH ×4 (00:18→23:05)
[2018-08-23] MEDS: NEO-SYNEPHRINE 50 MG in NS 250 ML IV SCH ×2 (02:13→15:22)
[2018-08-23] MEDS: XOPENEX NEB INH SCH ×6 (03:28→23:03)
[2018-08-23] MEDS: ATROVENT NEB INH SCH ×6 (03:28→23:03)
[2018-08-23] MEDS: CLINIMIX E 4.25%-5% SOLUTION 1,000 ML IV SCH ×2 (03:50→16:47)
[2018-08-23 04:39] LABS: ALLEN TEST YES; BLOOD TYPE ARTERIAL; HCO3-(ACT) 32.7 mmoll (20.0-26.0); METHB 0.8 % (0.0-1.5); O2(CT) 11.5 mL/dL (15.0-23.0); O2HB 94.6 % (95.0-99.0); PCO2(98.6) 38 mmHg (35-45); PO2(98.6) 71 mmHg (60-100); SAMPLE BLOOD; SAO2 97.4 % (95.0-100.0); SRATE 10 BPM; THB 8.6 g/dL (11.5-17.4); TVOL 600 mL; pH(98.6) 7.55 (7.35-7.45)
[2018-08-23 04:40] LABS: MODALITY VENTILATOR
[2018-08-23] MEDS: LASIX IV SCH (05:25)
[2018-08-23] MEDS: PROTONIX IV SCH (05:25)
[2018-08-23 06:27] LABS: BASO# 0.08 X1000 (0.0-0.2); BASO% 0.4 % (0.0-0.8); HEMOGLOBIN 8.3 g/dL (14.0-18.0); IMM GRAN# 1.37 X1000 (0.0-0.04); IMM GRAN% 6.7 % (0.0-0.5); LYMPH# 0.58 X1000 (1.2-3.4); LYMPH% 2.9 % (20.5-51.1); MCHC 29.6 g/dL (33-37); MCV 74.3 FL (81-99); MONO% 6.9 % (1.7-9.3); MPV 12.2 FL (7.4-10.4); NEUT% 83.1 % (42.2-75.2); PLT 213 X1000 (130-400); RBC 3.77 XMIL (4.7-6.1); RDW 23.1 % (11.5-14.5); WBC 20.33 X1000 (4.8-10.8)
[2018-08-23 06:52] LABS: AGAP 13; ALB/GLOB RATIO 1.5; ALBUMIN 2.9 g/dL (3.5-5.0); ALKALINE PHOSPHATASE 134 U/L (32-122); BUN 48 mg/dL (8-22); CALCIUM 8.5 mg/dL (8.8-10.2); CHLORIDE 107 mmol/L (98-107); COSMO 316; CREATININE 0.4 mg/dL (0.7-1.2); ESTIMATED GFR > 60; GLUCOSE 191 mg/dL (70-104); GOT 28 U/L (10-34); GPT 67 U/L (10-44); POTASSIUM 3.3 mmol/L (3.5-5.1); SODIUM 150 mmol/L (136-145); TCO2 30 mmol/L (25-35); TOTAL BILIRUBIN 0.57 mg/dL (0.20-1.00); TOTAL PROTEIN 4.9 g/dL (6.3-8.3)
[2018-08-23] MEDS ORDERED: POTASSIUM CHLORIDE 60 MEQ in NS 500 ML IV ONE (06:54)
--- NOTE | 2018-08-23 07:21 | Diag Imaging Result Doc PS360 ---
EXAM: CHEST-PORTABLE - 08/23/2018 HISTORY: respiratory failure TECHNIQUE: Portable chest COMPARISON: 08/22/2018 FINDINGS: Endotracheal tube, nasogastric tube, and PICC remain in place. There is been some interval decrease in basilar opacities compared to prior. There is no pneumothorax identified. Heart size is normal. IMPRESSION: Some interval decrease in basilar opacities. Electronically signed by Enrique Townsend 08/23/2018 7:19 AM
[2018-08-23] MEDS: PULMICORT INH SCH ×2 (07:44→19:41)
[2018-08-23 07:53] LABS: LYMPHS 4 % (21-51); MONO 2 % (1-9); NRBC 1 % (0-0); SEGS 94 % (42-75)
[2018-08-23] MEDS: VITAMIN D PO SCH (08:26)
[2018-08-23] MEDS: NEURONTIN PO SCH ×2 (08:27→20:00)
[2018-08-23] MEDS: PROSCAR PO SCH (08:27)
[2018-08-23] MEDS: CARAFATE PO SCH ×2 (08:27→20:00)
[2018-08-23] MEDS: DITROPAN PO SCH ×2 (08:28→20:00)
[2018-08-23] MEDS: CORDARONE PO SCH (08:28)
[2018-08-23] MEDS: ZINC SULFATE PO SCH ×2 (08:28→20:00)
[2018-08-23] MEDS: REGLAN IV SCH ×2 (08:29→20:00)
[2018-08-23] MEDS: LOTRIMIN 1% CREAM TOP SCH ×2 (08:29→20:01)
[2018-08-23] MEDS: MAALOX PLUS LIQUID PO SCH (08:29)
[2018-08-23] MEDS: SANTYL OINT TOP SCH (08:30)
[2018-08-23] MEDS: ATIVAN IV PRN (10:29)
--- NOTE | 2018-08-23 12:07 | Diag Imaging Result Doc PS360 ---
EXAM: CHEST-PORTABLE - 08/23/2018 HISTORY: ETT Change TECHNIQUE: Portable chest COMPARISON: Prior exam of 08/23/2018 FINDINGS: The tip of endotracheal tube is partially obscured by overlying wires. The tip of endotracheal tube appears be located in satisfactory position probably 4 cm above the catherine. Nasogastric tube and PICC remain in place. Basilar opacities appear to decreased mildly. There is no pneumothorax identified. Heart size appears normal. IMPRESSION: Tip of endotracheal tube in satisfactory position approximately 4 cm above the catherine. Mild decrease in basilar opacities. Electronically signed by Enrique Townsend 08/23/2018 12:05 PM
[2018-08-23] MEDS: LEVAQUIN 750 MG/D5W 750 MG/150 ML IVPB IV SCH (15:26)
--- NOTE | 2018-08-23 18:49 | PROGRESS NOTE ---
DATE: 08/23/2018 SUBJECTIVE: The patient is awake and on the ventilator. OBJECTIVE: Vital Signs: Temperature 97, blood pressure 99/55, heart rate 85, respirations 20, O2 saturation 100% on mechanical ventilator. General: This is a chronically ill- appearing elderly male, lying in bed in no acute distress. Heart: S1, S2 normal. Regular rate and rhythm. Lungs: Coarse breath sounds bilaterally. Abdomen: Positive bowel sounds. Soft, nontender, nondistended. Extremities: 3+ edema in the upper and lower extremities. Neurologic: The patient is awake. The patient is also a paraplegic. LABS: White blood cell count 20, hemoglobin 8.3, hematocrit 28, platelets 213. Sodium 150, potassium 3.3, chloride 107, CO2 of 30, BUN 48, creatinine 0.4, glucose 120. AST 28, ALT 67, alkaline phosphatase 134. Chest x-ray show interval decrease in bibasilar opacities. ASSESSMENT AND PLAN: 1. Acute hypoxemic respiratory failure. Unchanged. The patient remains ventilator dependent. Management as per the decommissioning well site manager. 2. Acute pulmonary edema. Continue with diuretic therapy. Bilateral lobe pneumonia. Continue with antibiotic therapy. 3. Multiple infected decubitus ulcerations. Continue with wound care and antibiotics. 4. Hypernatremia. The sodium is increased again today. Will increase the free water flush via the nasogastric tube. 5. Septic shock. The patient remains on Isaac-Synephrine. 6. Severe protein calorie malnutrition. Continue with tube feeds. 7. Left hip osteomyelitis. Aware. Continue with antibiotics. 8. Gastrointestinal prophylaxis. Continue on Protonix. 9. Disposition. The patient remains critically ill with a high risk of mortality. cc: Charleen Mojica MD [facility]
[2018-08-23] MEDS: XARELTO PO SCH (20:00)
[2018-08-23] MEDS ORDERED: CORDARONE 360 MG/D5W 360 MG/200 ML IV.SOLN IV ONE (21:20)
--- NOTE | 2018-08-23 21:28 | PULMONOLOGY PROGRESS NOTE ---
DATE: 08/23/2018 SUBJECTIVE: The patient is more awake today. He will follow commands. OBJECTIVE: The patient is afebrile. Blood pressure 101/57, heart rate 78, respiratory rate 12, oxygen saturation 99%. HEENT: Pupils are equal and reactive. Oropharynx appears clear. Neck is supple. Chest reveals decreased breath sounds in the lung bases. Cardiac exam: S1, S2. Abdomen is soft with positive bowel sounds. Extremities reveal generalized edema. LABORATORY DATA: White blood count 20,000, hemoglobin 8.3, platelet count 213,000. Sodium 150, potassium 3.3, chloride 107, bicarbonate 48, creatinine 0.4, total protein 4.9, albumin 2.2. DIAGNOSTIC DATA: Chest x-ray reveals bibasilar infiltrates which have slightly improved. IMPRESSION: A 72-year-old with: 1. Infected left hip, with osteomyelitis and osteonecrosis noted on CT scan. 2. Decubitus ulcers. 3. Urinary tract infection. 4. Severe protein-calorie malnutrition. 5. Acute hypoxemic respiratory failure. 6. Ongoing shock with vasopressor requirements. 7. Bilateral pleural effusion. 8. Paroxysmal atrial fibrillation. RECOMMENDATIONS: 1. Continue tube feeds. 2. Attempt to balance intake and output. 3. Continue current antibiotic regimen. 4. Daily weaning attempts. He does appear to be getting stronger. 5. Overall prognosis is guarded. The case was discussed with his . Time spent in critical care 30-plus minutes. cc: Haroldo Maciel MD
[2018-08-23] MEDS ORDERED: NEO-SYNEPHRINE 50 MG in NS 250 ML IV SCH (21:30)
[2018-08-23] MEDS ORDERED: LASIX IV ONE (22:00)
[2018-08-24] MEDS ORDERED: CORDARONE 540 MG in D5W 289.2 ML IV ONE (03:20)
[2018-08-24] MEDS: ATROVENT NEB INH SCH ×6 (03:36→23:39)
[2018-08-24] MEDS: XOPENEX NEB INH SCH ×6 (03:36→23:39)
[2018-08-24 05:02] LABS: BE 12.1 mmoll (-3.0-3.0); BLOOD TYPE ARTERIAL; HCO3-(ACT) 34.3 mmoll (20.0-26.0); MODALITY VENTILATOR; PCO2(98.6) 42 mmHg (35-45); PO2(98.6) 71 mmHg (60-100); SAMPLE BLOOD; SRATE 8 BPM; TVOL 700 mL; pH(98.6) 7.54 (7.35-7.45)
[2018-08-24] MEDS: NEO-SYNEPHRINE 50 MG in NS 250 ML IV SCH ×2 (05:18→17:54)
[2018-08-24] MEDS: CLINIMIX E 4.25%-5% SOLUTION 1,000 ML IV SCH (05:18)
[2018-08-24] MEDS: PROTONIX IV SCH (05:25)
[2018-08-24 06:02] LABS: ALLEN TEST YES
[2018-08-24 06:21] LABS: BASO# 0.06 X1000 (0.0-0.2); BASO% 0.3 % (0.0-0.8); EOS# 0.02 X1000 (0.0-0.7); EOS% 0.1 % (0.0-10.0); HEMATOCRIT 29.9 % (42.0-52.0); HEMOGLOBIN 8.5 g/dL (14.0-18.0); IMM GRAN# 0.85 X1000 (0.0-0.04); IMM GRAN% 4.1 % (0.0-0.5); LYMPH# 0.69 X1000 (1.2-3.4); LYMPH% 3.3 % (20.5-51.1); MCH 21.6 PG (27-31); MCHC 28.4 g/dL (33-37); MCV 76.1 FL (81-99); MONO# 1.89 X1000 (0.11-0.59); MONO% 9.1 % (1.7-9.3); MPV 11.7 FL (7.4-10.4); NEUT# 17.36 X1000 (1.4-6.5); NEUT% 83.1 % (42.2-75.2); PLT 234 X1000 (130-400); RBC 3.93 XMIL (4.7-6.1); RDW 25.1 % (11.5-14.5); WBC 20.87 X1000 (4.8-10.8)
[2018-08-24 06:44] LABS: AGAP 12; ALB/GLOB RATIO 1.4; ALBUMIN 2.8 g/dL (3.5-5.0); ALKALINE PHOSPHATASE 128 U/L (32-122); BUN 47 mg/dL (8-22); CALCIUM 8.7 mg/dL (8.8-10.2); CHLORIDE 111 mmol/L (98-107); COSMO 322; CREATININE 0.4 mg/dL (0.7-1.2); ESTIMATED GFR > 60; GLUCOSE 183 mg/dL (70-104); GOT 28 U/L (10-34); GPT 57 U/L (10-44); POTASSIUM 3.3 mmol/L (3.5-5.1); SODIUM 154 mmol/L (136-145); TCO2 31 mmol/L (25-35); TOTAL BILIRUBIN 0.58 mg/dL (0.20-1.00); TOTAL PROTEIN 4.8 g/dL (6.3-8.3)
[2018-08-24] MEDS ORDERED: POTASSIUM CHLORIDE 60 MEQ in NS 500 ML IV ONE (06:49)
--- NOTE | 2018-08-24 07:29 | Diag Imaging Result Doc PS360 ---
EXAM: CHEST-PORTABLE HISTORY: respiratory failure TECHNIQUE: Portable chest single view COMPARISON: 08/23/2018 FINDINGS: No change in the endotracheal tube, nasogastric tube, or in the right-sided colon. No cardiomegaly. Atelectasis versus small infiltrates in the lower lungs. Small pleural effusions. IMPRESSION: Slightly improved inspiration, but otherwise significant change. Electronically signed by Alfie Mustafa 08/24/2018 7:27 AM
[2018-08-24] MEDS: PULMICORT INH SCH ×2 (07:33→19:49)
[2018-08-24] MEDS: SOLU-CORTEF IV SCH ×2 (08:41→15:22)
[2018-08-24] MEDS: REGLAN IV SCH (08:41)
[2018-08-24] MEDS: VITAMIN D PO SCH (08:42)
[2018-08-24] MEDS: MERREM 1 GM in NS 50 ML IV SCH ×2 (08:42→15:22)
[2018-08-24] MEDS: PROSCAR PO SCH (08:42)
[2018-08-24] MEDS: CORDARONE PO SCH (08:42)
[2018-08-24] MEDS: SANTYL OINT TOP SCH (08:42)
[2018-08-24] MEDS: MAALOX PLUS LIQUID PO SCH (08:42)
[2018-08-24] MEDS: ZINC SULFATE PO SCH ×2 (08:42→20:07)
[2018-08-24] MEDS: DITROPAN PO SCH ×2 (08:42→20:07)
[2018-08-24] MEDS: NEURONTIN PO SCH ×2 (08:42→20:07)
[2018-08-24] MEDS: CARAFATE PO SCH ×2 (08:42→20:07)
[2018-08-24] MEDS: LOTRIMIN 1% CREAM TOP SCH ×2 (08:43→20:07)
[2018-08-24] MEDS ORDERED: LASIX IV ONE (10:10)
[2018-08-24] MEDS ORDERED: D5W 500 ML IV SCH (10:15)
--- NOTE | 2018-08-24 15:34 | PROGRESS NOTE ---
DATE: 08/24/2018 SUBJECTIVE: The patient is awake, on the ventilator. No acute events noted overnight. OBJECTIVE: Vital Signs: Temperature 98.9 degrees, blood pressure 109/59, heart rate 85, respirations 19, O2 saturation 100% on the mechanical ventilator. Intake 4.5 L. Output 3.8 L. General: This is an elderly male lying in bed, in no acute distress, on the ventilator. Head: Normocephalic, atraumatic. Heart: S1, S2 normal. Regular rate and rhythm. Lungs: Equal air entry bilaterally. No wheezing. No rales. Abdomen: Positive bowel sounds. Soft, nontender, nondistended. Extremities: The patient has anasarca in both the upper and lower extremities. Neurologic: The patient is awake. LABS: White blood cell count 20, hemoglobin 8.5, hematocrit 29, platelets 234,000. Sodium 154, potassium 3.3, chloride 111, CO2 31, BUN 47, creatinine 0.4, glucose 183, AST 28, ALT 57, alkaline phosphatase 128. Chest x-ray reveals slightly improved inspiration. ASSESSMENT AND PLAN: 1. Acute hypoxemic respiratory failure. Continue with ventilatory support as directed by the [employer]ing [employer]. 2. Acute pulmonary edema. Slight improvement. 3. Bibasilar pneumonia. Continue with antibiotic and bronchodilator therapy. 4. Multiple infected decubitus ulcerations. Continue with wound care and antibiotic therapy. 5. Left hip osteomyelitis. Continue with antibiotic therapy. 6. Hyponatremia. Worse today. We will increase the free water flush via the NG tube. 7. Septic shock. The patient is still pressor dependent. Continue with antibiotic therapy. 8. Hypokalemia. Will replace the patient's potassium. 9. Severe protein calorie malnutrition. Continue with tube feeds. 10. Leukocytosis. Continue with antibiotic therapy. 11. Paraplegia. Aware. 12. Gastrointestinal prophylaxis. Continue on Protonix. 13. Atrial fibrillation. The patient is rate controlled. 14. Deep vein thrombosis prophylaxis. Will start the patient on heparin. cc: Charleen Mojica MD MTDD
[2018-08-24] MEDS: LEVAQUIN 750 MG/D5W 750 MG/150 ML IVPB IV SCH (16:22)
--- NOTE | 2018-08-24 19:21 | PULMONOLOGY PROGRESS NOTE ---
DATE: 08/24/2018 SUBJECTIVE: The patient is awake, alert. He will follow commands. OBJECTIVE: Vital Signs: The patient has been afebrile for the last 24 hours. BP 108/59, heart rate 77, respiratory rate 19, oxygen saturation 100%. HEENT: Pupils are equal and reactive. Oropharynx appears clear. Neck: Supple. Chest: Reveals rhonchi bilaterally. Cardiac: S1, S2. Abdomen: Soft, with positive bowel sounds and ostomy output. Extremities: Reveal edema, upper extremities greater than lower extremities. LABORATORIES: Chest x-ray reveals stable bibasilar infiltrates/effusion. Arterial blood gas reveals pH 7.54, pCO2 of 42, PO2 of 71. White blood count 20.8 thousand, hemoglobin 8.5, platelet count 234,000. Sodium 154, potassium 3.3, chloride 111, bicarbonate 31, BUN 47, creatinine 0.4, total protein 4.8, globulin fraction 2.8. IMPRESSION: A 72-year-old with: 1. Infected left hip associated with osteomyelitis and osteonecrosis on CT scan. 2. Decubitus ulcers. 3. Ongoing septic shock with vasopressor requirements. 4. Urinary tract infection. 5. Severe protein calorie malnutrition. 6. Small bilateral effusions. 7. Paroxysmal atrial fibrillation. RECOMMENDATIONS: 1. Continue ventilatory support. The patient was placed on a spontaneous breathing trial and is unable to trigger a breath with [id number] trigger. 2. Continue tube feeds as tolerated. 3. Recommend replacing potassium and D5W and not need normal saline. A better option would be replacing potassium through his NG tube. 4. Overall prognosis is guarded. Family is at the bedside and his prognosis and his current status was discussed. Time spent in critical care management: 30+ minutes cc: Haroldo Maciel MD [facility]
[2018-08-24] MEDS: XARELTO PO SCH (20:07)
[2018-08-25] MEDS: MERREM 1 GM in NS 50 ML IV SCH ×4 (00:24→23:47)
[2018-08-25] MEDS: SOLU-CORTEF IV SCH ×4 (00:25→23:46)
[2018-08-25] MEDS: ATROVENT NEB INH SCH ×6 (03:16→23:12)
[2018-08-25] MEDS: XOPENEX NEB INH SCH ×6 (03:16→23:12)
[2018-08-25] MEDS: NEO-SYNEPHRINE 50 MG in NS 250 ML IV SCH ×3 (04:01→23:51)
[2018-08-25 05:27] LABS: ALLEN TEST YES; BE 11.4 mmoll (-3.0-3.0); BLOOD TYPE ARTERIAL; HCO3-(ACT) 33.8 mmoll (20.0-26.0); PCO2(98.6) 45 mmHg (35-45); PO2(98.6) 83 mmHg (60-100); SAMPLE BLOOD; SRATE 8 BPM; TVOL 700 mL; pH(98.6) 7.51 (7.35-7.45)
[2018-08-25 05:28] LABS: MODALITY VENTILATOR
[2018-08-25] MEDS: PROTONIX IV SCH (05:28)
--- NOTE | 2018-08-25 07:13 | Diag Imaging Result Doc PS360 ---
EXAM: CHEST-PORTABLE HISTORY: respiratory failure TECHNIQUE: Portable chest single view COMPARISON: 08/24/2018 FINDINGS: No change in the endotracheal tube or nasogastric tube. No change in the right-sided PICC line. There are infiltrates and atelectasis in the lower lungs, left greater than right. Trace pleural fluid. The overall appearance is quite similar to that of the prior exam. IMPRESSION: Stable chest. Electronically signed by Alfie Mustafa 08/25/2018 7:11 AM
[2018-08-25 07:17] LABS: BASO# 0.03 X1000 (0.0-0.2); BASO% 0.1 % (0.0-0.8); HEMATOCRIT 29.6 % (42.0-52.0); HEMOGLOBIN 8.6 g/dL (14.0-18.0); IMM GRAN# 0.47 X1000 (0.0-0.04); IMM GRAN% 2.3 % (0.0-0.5); LYMPH# 0.64 X1000 (1.2-3.4); LYMPH% 3.2 % (20.5-51.1); MCH 22.3 PG (27-31); MCHC 29.1 g/dL (33-37); MCV 76.7 FL (81-99); MONO# 1.86 X1000 (0.11-0.59); MONO% 9.2 % (1.7-9.3); MPV 11.5 FL (7.4-10.4); NEUT# 17.19 X1000 (1.4-6.5); NEUT% 85.2 % (42.2-75.2); PLT 227 X1000 (130-400); RBC 3.86 XMIL (4.7-6.1); RDW 25.6 % (11.5-14.5); WBC 20.19 X1000 (4.8-10.8)
[2018-08-25 07:27] LABS: AGAP 10; ALB/GLOB RATIO 1.2; ALBUMIN 2.6 g/dL (3.5-5.0); ALKALINE PHOSPHATASE 165 U/L (32-122); BUN 40 mg/dL (8-22); CALCIUM 8.3 mg/dL (8.8-10.2); CHLORIDE 107 mmol/L (98-107); COSMO 309; CREATININE 0.3 mg/dL (0.7-1.2); ESTIMATED GFR > 60; GLUCOSE 148 mg/dL (70-104); GOT 46 U/L (10-34); GPT 61 U/L (10-44); POTASSIUM 3.5 mmol/L (3.5-5.1); SODIUM 149 mmol/L (136-145); TCO2 32 mmol/L (25-35); TOTAL BILIRUBIN 0.64 mg/dL (0.20-1.00); TOTAL PROTEIN 4.8 g/dL (6.3-8.3)
[2018-08-25] MEDS: PULMICORT INH SCH ×2 (07:35→18:58)
[2018-08-25] MEDS: VITAMIN D PO SCH (08:07)
[2018-08-25] MEDS: ZINC SULFATE PO SCH ×2 (08:07→20:23)
[2018-08-25] MEDS: NEURONTIN PO SCH ×2 (08:07→20:23)
[2018-08-25] MEDS: PROSCAR PO SCH (08:07)
[2018-08-25] MEDS: CARAFATE PO SCH ×2 (08:07→20:23)
[2018-08-25] MEDS: MAALOX PLUS LIQUID PO SCH (08:07)
[2018-08-25] MEDS: CORDARONE PO SCH (08:07)
[2018-08-25] MEDS: DITROPAN PO SCH ×2 (08:08→20:23)
[2018-08-25] MEDS: SANTYL OINT TOP SCH (08:12)
[2018-08-25] MEDS: LOTRIMIN 1% CREAM TOP SCH ×2 (08:28→20:23)
--- NOTE | 2018-08-25 13:30 | PROGRESS NOTE ---
DATE: 08/25/2018 SUBJECTIVE: The patient is awake on the ventilator. No acute events noted overnight. OBJECTIVE: Vital Signs: Temperature 98.6 degrees, blood pressure 102/56, heart rate 81, respirations 25, O2 saturation 98% on the ventilator, intake 4.9 L, output 2.9 L. General: This is an elderly male currently on the mechanical ventilator. HEENT: Head normocephalic, atraumatic. Heart: S1, S2 normal. Lungs: Equal air entry bilaterally. No wheezing. No rales. No rhonchi. Abdomen: Positive bowel sounds. Soft, nontender, nondistended. Extremities: The patient has anasarca. Neurologic: The patient is awake and alert. He is able to move his hands. LABORATORY DATA: White blood cell count 20, hemoglobin 8.6, hematocrit 29, platelets 227,000. Sodium 149, potassium 3.5, chloride 107, CO2 32, BUN 40, creatinine 0.3 glucose 148. Chest x-ray shows infiltrates in the lower lung bases. ASSESSMENT AND PLAN: 1. Acute hypoxemic respiratory failure. Continue with ventilatory support as directed by the stallion manager. 2. Acute pulmonary edema. Continue with the current treatment regimen. 3. Bibasilar pneumonia. Continue with antibiotic and bronchodilator therapy. 4. Multiple infected decubitus ulcerations. Continue on IV antibiotics and wound care. 5. Left hip osteomyelitis. The patient is on antibiotic therapy. 6. Hypernatremia. Improved. Continue with free water flushes via the nasogastric tube. 7. Septic shock. Continue to try and wean the patient off of the Isaac-Synephrine. Continue with antibiotic therapy. 8. Severe protein calorie malnutrition. Continue with tube feeds. 9. Paraplegia. Aware. 10. Atrial fibrillation. The patient is rate controlled. 11. Gastrointestinal prophylaxis. Continue on Protonix. 12. Deep vein thrombosis prophylaxis. Continue on heparin. cc: Charleen Mojica MD
[2018-08-25] MEDS: LEVAQUIN 750 MG/D5W 750 MG/150 ML IVPB IV SCH (15:02)
[2018-08-25] MEDS: ATIVAN IV PRN (15:02)
--- NOTE | 2018-08-25 19:09 | INFECTIOUS DISEASE PROGRESS NO ---
DATE: 08/25/2018 PRESENT ILLNESS: The patient has a bilateral pneumonia, multiple decubitus ulcers which are infected and septic left hip arthritis. The Stenotrophomonas is causing the urinary tract infection and Acinetobacter has been isolated from the ulcers. MEDICATIONS: The patient has been on meropenem now for a total of 5 days and Levaquin for a total of 11 days. PHYSICAL EXAMINATION: Vital Signs: Temperature is 98 degrees, pulse 72, respirations 14, blood pressure 111/63. General: This is a chronically ill-appearing, elderly male. He is more alert this time than he has been in the past few days. Head, Eyes, Ears, Nose, and throat: Appears that he can hear our spoken words and he can see near objects. There is no drainage from his nose or ears. The patient has an oral ET tube in place. Neck: There does not seem to be any pain when the patient turns his head. Lungs: There were scattered rhonchi bilaterally. Cardiovascular: Heart rate is regular. Abdomen: Soft. The patient has a colostomy. The patient also has a suprapubic catheter in place. Neurologic: Today as mentioned above, patient seems more alert. He does not have a tremor. He did move his arms but he is paralyzed from the waist distally. Integument: I did not see any rashes. Extremities: The patient does have a PICC in place in the right arm. That site is not erythematous or purulent. LAB AND X-RAY: Chest x-ray shows bibasilar infiltrates. CBC shows a white count of 20,190, hemoglobin 8.6, and platelet count 227,000. The patient's blood gases show a pH of 7.51, a PO2 of 83 and a pCO2 of 45. Creatinine is 0.3. GFR is greater than 60. Alkaline phosphatase is 165. ASSESSMENT AND PLAN: For now I am going to continue with the current antibiotics regimen. I had a long talk with the patient's and also with his son. If his condition should deteriorate, then I will from Infectious Disease point of view, repeat the cultures and make changes in the antibiotics. COMORBIDITIES: The patient is paraplegic from the waist down. He has gastroesophageal reflux disease, COPD, and cigarette smoking. cc: Adán Guevara MD
[2018-08-25] MEDS: LASIX IV SCH (19:14)
--- NOTE | 2018-08-25 19:21 | PULMONOLOGY PROGRESS NOTE ---
DATE: 08/25/2018 SUBJECTIVE: The patient is awake and alert. He is communicating with his . He appears to be in no distress. OBJECTIVE: Vital Signs: The patient has been afebrile for the last 24 hours. Blood pressure 106/57, heart rate 73, respiratory rate. Oxygen saturation 99%. HEENT: Pupils are equal and reactive. Oropharynx appears clear. Neck: Supple. Chest: Reveals coarse rhonchi bilaterally. Cardiac: S1, S2. Abdomen: Soft, with positive bowel sounds. Extremities: Extremities revealed increased edema of the upper extremities greater than lower extremities. LABORATORIES: Sodium 151, potassium 4.5, chloride 83. White blood count 20,000, hemoglobin 8.6, platelet count 227,000. Arterial blood gas: pH 7.51, pCO2 of 45, PO2 of 83. Sodium 149, potassium 3.5, chloride 107, bicarbonate 32, BUN 40, creatinine 0.3, total protein 4.8, albumin 2.6. IMPRESSION: 1. A 72-year-old with infected left hip associated with osteomyelitis and osteonecrosis on CT scan. 2. Decubitus ulcers. 3. Ongoing septic shock with vasopressor requirements. 4. Urinary tract infection. 5. Acute hypoxemic respiratory failure. 6. Bilateral effusions. 7. Paroxysmal atrial fibrillation. DISCUSSION: A 72-year-old with problems outlined above. He has had little change in the last 24 hours. He does appear slightly stronger over the last several days. He cannot pull -20 trigger on the ventilator to initiate a breath, but can pull -18. RECOMMENDATION: 1. Continue tube feeds. 2. Continue electrolyte replacement. 3. Daily vent weaning. Patient is close to extubation. 4. Ongoing end of life discussions with the family. The patient's currently reports that he does not want to be kept alive on mechanical ventilation and would not want the ventilator put back in place if he is successfully extubated. His code status will need to be addressed at the time of discharge. Time spent in critical care management: 30+ minutes cc: Haroldo Maciel MD [facility]
[2018-08-25] MEDS: XARELTO PO SCH (20:23)
[2018-08-26] MEDS: LASIX IV SCH ×3 (02:36→22:56)
[2018-08-26] MEDS: ATROVENT NEB INH SCH ×6 (03:03→23:39)
[2018-08-26] MEDS: XOPENEX NEB INH SCH ×6 (03:03→23:40)
[2018-08-26 04:46] LABS: BASO# 0.02 X1000 (0.0-0.2); BASO% 0.1 % (0.0-0.8); HEMATOCRIT 30.7 % (42.0-52.0); HEMOGLOBIN 8.9 g/dL (14.0-18.0); IMM GRAN# 0.24 X1000 (0.0-0.04); IMM GRAN% 1.3 % (0.0-0.5); LYMPH# 1.02 X1000 (1.2-3.4); LYMPH% 5.4 % (20.5-51.1); MCH 22.1 PG (27-31); MCV 76.4 FL (81-99); MONO# 1.43 X1000 (0.11-0.59); MONO% 7.6 % (1.7-9.3); MPV 11.9 FL (7.4-10.4); NEUT# 16.03 X1000 (1.4-6.5); NEUT% 85.6 % (42.2-75.2); PLT 263 X1000 (130-400); RBC 4.02 XMIL (4.7-6.1); WBC 18.74 X1000 (4.8-10.8)
[2018-08-26 04:51] LABS: ALLEN TEST YES; BE 15.7 mmoll (-3.0-3.0); BLOOD TYPE ARTERIAL; HCO3-(ACT) 37.2 mmoll (20.0-26.0); METHB 0.7 % (0.0-1.5); O2(CT) 11.7 mL/dL (15.0-23.0); O2HB 94.5 % (95.0-99.0); PCO2(98.6) 44 mmHg (35-45); PO2(98.6) 77 mmHg (60-100); SAMPLE BLOOD; SAO2 97.4 % (95.0-100.0); SRATE 8 BPM; THB 8.7 g/dL (11.5-17.4); TVOL 800 mL; pH(98.6) 7.56 (7.35-7.45)
[2018-08-26 04:52] LABS: MODALITY VENTILATOR
[2018-08-26 04:57] LABS: MAGNESIUM 2.1 mg/dL (1.5-2.7); PHOSPHORUS 2.4 mg/dL (2.7-4.5)
[2018-08-26 05:20] LABS: AGAP 11; ALB/GLOB RATIO 1.3; ALBUMIN 2.8 g/dL (3.5-5.0); ALKALINE PHOSPHATASE 162 U/L (32-122); BUN 31 mg/dL (8-22); CALCIUM 8.3 mg/dL (8.8-10.2); CHLORIDE 106 mmol/L (98-107); COSMO 311; CREATININE 0.4 mg/dL (0.7-1.2); ESTIMATED GFR > 60; GLUCOSE 173 mg/dL (70-104); GOT 33 U/L (10-34); GPT 54 U/L (10-44); POTASSIUM 2.6 mmol/L (3.5-5.1); SODIUM 151 mmol/L (136-145); TCO2 34 mmol/L (25-35); TOTAL BILIRUBIN 0.61 mg/dL (0.20-1.00); TOTAL PROTEIN 4.9 g/dL (6.3-8.3)
[2018-08-26] MEDS: PROTONIX IV SCH (05:42)
[2018-08-26] MEDS: PULMICORT INH SCH ×2 (07:37→19:00)
[2018-08-26] MEDS: MERREM 1 GM in NS 50 ML IV SCH ×2 (07:45→15:01)
[2018-08-26] MEDS: SOLU-CORTEF IV SCH ×2 (07:45→15:00)
[2018-08-26] MEDS: MAALOX PLUS LIQUID PO SCH (08:12)
[2018-08-26] MEDS: DITROPAN PO SCH ×3 (08:12→22:48)
[2018-08-26] MEDS: VITAMIN D PO SCH (08:12)
[2018-08-26] MEDS: SANTYL OINT TOP SCH (08:12)
[2018-08-26] MEDS: CARAFATE PO SCH ×3 (08:12→22:48)
[2018-08-26] MEDS: ZINC SULFATE PO SCH ×2 (08:12→22:46)
[2018-08-26] MEDS: PROSCAR PO SCH (08:12)
[2018-08-26] MEDS: NEURONTIN PO SCH ×2 (08:12→20:12)
[2018-08-26] MEDS: CORDARONE PO SCH (08:12)
[2018-08-26] MEDS: LOTRIMIN 1% CREAM TOP SCH ×2 (08:13→20:13)
--- NOTE | 2018-08-26 08:18 | Diag Imaging Result Doc PS360 ---
EXAM: CHEST-PORTABLE INDICATION: respiratory failure TECHNIQUE: One view COMPARISON: 08/25/2018 FINDINGS: Support tubes and lines are in stable positions. Bibasilar infiltrates, left worse than right, are approximately stable. No new consolidation is identified. There are probably bilateral small effusions that are unchanged. Cardiac silhouette is stable. IMPRESSION: Stable chest. Electronically signed by Igor Mendoza 08/26/2018 8:16 AM
[2018-08-26] MEDS: NEO-SYNEPHRINE 50 MG in NS 250 ML IV SCH ×2 (08:56→16:35)
--- NOTE | 2018-08-26 10:04 | INFECTIOUS DISEASE PROGRESS NO ---
DATE: 08/26/2018 PRESENT ILLNESS: The patient has bilateral pneumonia, multiple infected decubitus ulcers, and septic hip arthritis and osteomyelitis. Stenotrophomonas is causing a urinary tract infection and Acinetobacter has been isolated from the ulcers. MEDICATIONS: This is 6 days of treatment with meropenem and 12 days of treatment with Levaquin. PHYSICAL EXAMINATION: Vital Signs: Temperature is 98 degrees, pulse 75, respirations 20, blood pressure 120/61. General: This is a chronically ill-appearing, elderly male. He is intubated. He is not in any acute distress. Head/eyes/ears/nose/throat: I was able to carry on a conversation with the patient. He can he can hear my spoken words. It appeared that he could see near objects. He does not have any drainage coming from his nose or ears. Neck: He did not seem to be in any pain when he turned his head. Lungs: There were bilateral rhonchi. Cardiovascular: Heart rate is regular. Abdomen: Soft. It was not tender. The patient has a colostomy and suprapubic catheter in place. Neurologic: The patient is paralyzed from the waist distally. INTEGUMENT: I did not see any rashes. LAB AND X-RAY: There is no new x-ray for today. The CBC shows a white count of 18,740, hemoglobin 8.9, platelet count 263,000. Blood gases show a pH of 7.56, a pO2 of 77 and a pCO2 of 44. Creatinine is 0.4, GFR is greater than 60. Alkaline phosphatase is 162. The patient's sputum grew normal dwaine. ASSESSMENT AND PLAN: I discussed with the patient the options of continuing intensive care versus hospice care and he had indicated to me that for right now, he was unable to make his mind which one he would prefer. 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 COMORBIDITIES: In this patient include the fact that he is paraplegic from the waist distally. He also has gastroesophageal reflux disease, COPD, and cigarette smoking. cc: Adán Guevara MD
[2018-08-26] MEDS ORDERED: POTASSIUM CHLORIDE 40 MEQ/SWI 40 MEQ/100 ML IVPB IV ONE (12:47)
--- NOTE | 2018-08-26 14:51 | PROGRESS NOTE ---
DATE: 08/26/2018 OBJECTIVE: Vital Signs: Temperature is 98.2 degrees, pulse 75, respiratory 17, blood pressure is 116/52, and oxygen saturation is 100%. HEENT: Head is atraumatic and normocephalic. He has an ET tube as well as OG tube in place. Cardiovascular: S1, S2. Respiratory: Evidence of good air entry bilaterally. Abdomen: Soft. Ostomy present. Extremities: Edema in both lower extremities. Central nervous system: The patient is awake. LABORATORY DATA: WBCs is 18.75. Hematocrit is 30.7 with a platelet count of 260,000. ABG 7.66/44/37/84.5%. Chemistry: Sodium is 151, potassium is 2.6, chloride is 106, bicarb 34, BUN is 31, and creatinine 0.4. Magnesium level is 2.1. X-ray of chest shows bibasilar infiltrates left worse than right. ASSESSMENT AND PLAN: 1. Acute respiratory failure. Continue ventilator support. Treat pulmonary pathologies specifically pulmonary edema as well as pneumonia. Pulmonary team following. 2. Multiple infected decubitus ulcers. Continue local wound care as well as antibiotics. 3. Left hip osteomyelitis. Continue antibiotics. 4. Hypernatremia. Maintain patient on hypotonic solution and follow up on sodium level. 5. Septic shock. Continue pressors and antibiotics. 6. Severe protein calorie malnutrition. Continue tube feeds. 7. Atrial fibrillation. Heart rate is controlled. Continue Cardizem as well as amiodarone along with Xarelto. 8. Gastrointestinal prophylaxis. Proton pump inhibitor. 9. Deep vein thrombosis prophylaxis. Patient is on Xarelto. cc: MD PRAVEEN Mojica
[2018-08-26] MEDS: LEVAQUIN 750 MG/D5W 750 MG/150 ML IVPB IV SCH (15:00)
[2018-08-26] MEDS: XARELTO PO SCH (20:12)
[2018-08-26] MEDS ORDERED: POTASSIUM CHLORIDE 20% LIQUID NG SCH (20:30)
--- NOTE | 2018-08-26 20:50 | PULMONOLOGY PROGRESS NOTE ---
DATE: 08/26/2018 SUBJECTIVE: The patient is awake and alert. He does nod appropriately to questions. He remains on mechanical ventilation. OBJECTIVE: Vital Signs: The patient has been afebrile for the last 24 hours. Blood pressure 93/44 on Isaac-Synephrine, heart rate 78, respiratory rate 15, oxygen saturation 99%. HEENT: Pupils are equal and reactive. Oropharynx appears clear. Neck: Is supple. Chest: Reveals decreased breath sounds in the lung bases. Cardiac: S1, S2. Abdomen: Is soft with positive bowel sounds. He has ostomy output. Extremities: Revealed significant edema of the upper extremities with less edema of the lower extremities. LABORATORIES: White blood count 18.7, hemoglobin 8.9, platelet count 263,000. Sodium 151, potassium 2.6, chloride 31, BUN 0.4. Arterial blood gas pH 7.56, pCO2 of 44, PO2 of 77. The patient is over breathing a sed rate of 8. Chest x-ray reveals bibasilar infiltrates/effusions which have not changed. IMPRESSION: A 72-year-old with 1. Infected left hip associated with osteomyelitis and osteonecrosis. 2. Decubitus ulcers. 3. Ongoing septic shock. 4. Urinary tract infection. 5. Protein calorie malnutrition. 6. Bilateral effusions. 7. Acute hypoxemic respiratory failure. DISCUSSION: 72-year-old with problems outlined above. He is marginally improved today and his inspiratory pressure is right at -20. He is slightly hypokalemic. The patient's potassium will be replaced today and he will be initiated on a spontaneous breathing trial for possible extubation tomorrow. The patient remains a full code and his has expressed that she does not want him back on the ventilator, but she has not made these wishes known to the nursing staff despite my recommendation. Dr. Guevara has also had end-of-life discussions with this family. RECOMMENDATIONS: 1. Electrolyte replacement. 2. Continue tube feeds. 3. Breathing trial in the morning. It is anticipated he will be extubated tomorrow. 4. Ongoing end-of-life discussions. His overall prognosis is poor. TIME SPENT CRITICAL CARE: 30+ minutes. cc: Haroldo Maciel MD
[2018-08-26] MEDS: POTASSIUM CHLORIDE 20 MEQ/SWI 20 MEQ/100 ML IVPB IV SCH (22:46)
[2018-08-26] MEDS: ATIVAN IV PRN (23:40)
[2018-08-27] MEDS: SOLU-CORTEF IV SCH ×4 (00:44→23:56)
[2018-08-27] MEDS: MERREM 1 GM in NS 50 ML IV SCH ×4 (00:45→23:56)
[2018-08-27] MEDS: POTASSIUM CHLORIDE 20 MEQ/SWI 20 MEQ/100 ML IVPB IV SCH (01:02)
[2018-08-27] MEDS: NEO-SYNEPHRINE 50 MG in NS 250 ML IV SCH ×3 (01:05→19:51)
[2018-08-27] MEDS: ATROVENT NEB INH SCH ×6 (03:48→23:14)
[2018-08-27] MEDS: XOPENEX NEB INH SCH ×6 (03:48→23:15)
[2018-08-27 04:44] LABS: ALLEN TEST YES; BE 15.4 mmoll (-3.0-3.0); BLOOD TYPE ARTERIAL; HCO3-(ACT) 36.9 mmoll (20.0-26.0); METHB 1.3 % (0.0-1.5); O2HB 93.8 % (95.0-99.0); PCO2(98.6) 39 mmHg (35-45); PO2(98.6) 73 mmHg (60-100); SAMPLE BLOOD; SAO2 97.3 % (95.0-100.0); SRATE 8 BPM; THB 9.8 g/dL (11.5-17.4); TVOL 800 mL
[2018-08-27 04:46] LABS: MODALITY VENTILATOR
[2018-08-27 04:57] LABS: AGAP 12; ALB/GLOB RATIO 1.1; ALBUMIN 2.6 g/dL (3.5-5.0); ALKALINE PHOSPHATASE 157 U/L (32-122); BUN 30 mg/dL (8-22); CALCIUM 8.6 mg/dL (8.8-10.2); CHLORIDE 109 mmol/L (98-107); COSMO 308; CREATININE 0.3 mg/dL (0.7-1.2); ESTIMATED GFR > 60; GLUCOSE 139 mg/dL (70-104); GOT 30 U/L (10-34); GPT 47 U/L (10-44); POTASSIUM 3.4 mmol/L (3.5-5.1); SODIUM 151 mmol/L (136-145); TCO2 30 mmol/L (25-35); TOTAL BILIRUBIN 0.68 mg/dL (0.20-1.00); TOTAL PROTEIN 4.9 g/dL (6.3-8.3)
[2018-08-27] MEDS ORDERED: POTASSIUM CHLORIDE 20 MEQ/SWI 20 MEQ/100 ML IVPB IV ONE (05:08)
--- NOTE | 2018-08-27 05:10 | Diag Imaging Result Doc PS360 ---
EXAM: CHEST/ABD TUBE PLACEMENT HISTORY: NG tube placement TECHNIQUE: Portable chest abdomen COMPARISON: 4:49 AM FINDINGS: Endotracheal tube is in good position. No change in the right jugular line. There is a nasogastric tube overlying the esophagus. The tip is near the gastroesophageal junction. It is not specific. Infiltrates in the left lung base. IMPRESSION: Nasogastric tube with its tip near the GE junction. It is not the stomach. Electronically signed by Alfie Mustafa 08/27/2018 5:07 AM
[2018-08-27] MEDS: LASIX IV SCH (05:12)
[2018-08-27] MEDS: SODIUM CHLORIDE 0.9% INJ SCH (05:37)
[2018-08-27] MEDS: PROTONIX IV SCH (05:37)
--- NOTE | 2018-08-27 07:05 | Diag Imaging Result Doc PS360 ---
EXAM: CHEST-PORTABLE HISTORY: respiratory failure TECHNIQUE: Portable chest single view COMPARISON: 08/26/2018 FINDINGS: No change in the endotracheal tube or right sided PICC line. No cardiomegaly. The basilar infiltrates are slightly less dense. IMPRESSION: Mild improvement. Electronically signed by Alfie Mustafa 08/27/2018 7:02 AM
[2018-08-27] MEDS: PULMICORT INH SCH ×2 (07:42→19:30)
[2018-08-27] MEDS: LOVENOX SUBQ SCH ×2 (08:11→19:51)
--- NOTE | 2018-08-27 08:18 | INFECTIOUS DISEASE PROGRESS NO ---
DATE: 08/27/2018 PRESENT ILLNESS: The patient has bilateral pneumonia, multiple infected decubitus ulcers, urinary tract infection, septic hip arthritis and osteomyelitis. Stenotrophomonas is causing the urinary tract infection. Acinetobacter is causing the patient's infected decubitus ulcers and his septic hip arthritis and osteomyelitis. MEDICATIONS: This is the seventh day of treatment with meropenem and, after today's dose of Levaquin, the patient will have had 14 days of treatment with Levaquin. PHYSICAL EXAMINATION: Vital Signs: Temperature is 98 degrees, pulse 67, respirations 13, blood pressure 148/72. General: This is an ill-appearing elderly male. He is on a ventilator, and he is intubated and sedated. Head, eyes, ears, nose and throat: Patient has an orotracheal tube in place and an NG tube also. There is no drainage from the nose or ears. Neck: No pain with movement of the neck. Lungs: Clear to auscultation. Cardiovascular: Heart rate is regular. Abdomen: Soft and nontender. The patient's ostomy is functioning, and the patient's suprapubic tube is not erythematous or purulent. Neurologic: The patient is sedated he did not respond to verbal stimuli. There was no tremor. LAB AND X-RAY: There is no CBC for today. Blood gases show a pH of 7.6, a pO2 of 73, and a pCO2 of 39. The creatinine is 0.3. GFR is greater than 60. Alkaline phosphatase is 157. Chest x-ray shows improvement in the bibasilar infiltrates. ASSESSMENT AND PLAN: The patient appears to have a pneumonia. I plan to continue with meropenem. Also, it should provide good treatment for the patient's infected decubitus ulcers, and hopefully with his septic hip arthritis and osteomyelitis. I have discontinued Levaquin since the patient will have after today's dose of Levaquin a full treatment course for the urinary tract infection. The family have still not made up their mind about what the patient's further treatment should be. COMORBIDITIES: The patient is paraplegic from the waist distally. He also has gastroesophageal reflux disease, COPD, and cigarette smoking. cc: Adán Guevara MD
[2018-08-27 08:35] LABS: ALLEN TEST YES; BLOOD TYPE ARTERIAL; HCO3-(ACT) 36.6 mmoll (20.0-26.0); O2(CT) 11.4 mL/dL (15.0-23.0); O2HB 91.7 % (95.0-99.0); PCO2(98.6) 42 mmHg (35-45); PO2(98.6) 56 mmHg (60-100); SAMPLE BLOOD; SAO2 95.6 % (95.0-100.0); THB 8.8 g/dL (11.5-17.4)
[2018-08-27 08:36] LABS: MODALITY VENTILATOR; pH(98.6) 7.57 (7.35-7.45)
[2018-08-27] MEDS: LOTRIMIN 1% CREAM TOP SCH (09:00)
[2018-08-27] MEDS: SANTYL OINT TOP SCH (09:00)
[2018-08-27] MEDS: ZINC SULFATE PO SCH ×2 (09:24→20:19)
[2018-08-27] MEDS: CARAFATE PO SCH ×2 (09:24→20:18)
[2018-08-27] MEDS: MAALOX PLUS LIQUID PO SCH (09:25)
[2018-08-27] MEDS: PROSCAR PO SCH (09:25)
[2018-08-27] MEDS: VITAMIN D PO SCH (09:25)
[2018-08-27] MEDS: DITROPAN PO SCH (09:26)
[2018-08-27] MEDS: NEURONTIN PO SCH ×2 (09:26→20:19)
[2018-08-27] MEDS: CORDARONE PO SCH (09:26)
[2018-08-27] MEDS ORDERED: POTASSIUM CHLORIDE 40 MEQ/SWI 40 MEQ/100 ML IVPB IV ONE (13:48)
[2018-08-27] MEDS: CLINIMIX E 4.25%-5% SOLUTION 1,000 ML IV SCH (14:12)
--- NOTE | 2018-08-27 14:12 | PROGRESS NOTE ---
DATE: 08/27/2018 SUBJECTIVE: The patient is resting in bed. He has been extubated. He is dyspneic at rest. He is not coherent enough to engage in a conversation. OBJECTIVE: Vital signs: Temperature is 97.8 degrees, pulse 117 to 118, respiratory rate is 18, blood pressure 112/73, oxygen saturation is 100%. HEENT: He is atraumatic, normocephalic. Cardiovascular: Distant heart sounds. Respiratory: Rhonchi noted in both lung [place]. Abdomen: Soft. Ostomy is present. Extremities: Has 2+ edema in the lower extremities. Central nervous system: Patient is lethargic and poorly responsive. LABORATORY DATA: ABG 7.57/42/56 with oxygen saturation of 95.6. Sodium is 151, potassium 3.4. Chloride is 109, bicarb is 30, BUN is 30, creatinine 0.8. ASSESSMENT AND PLAN: 1. Acute respiratory failure. The patient is status post extubation. Maintain patient on oxygen, keep saturations above 90. Treat primary lung conditions, specifically pulmonary edema as well as pneumonia. Pulmonary team following. 2. Atrial fibrillation with rapid ventricular rate. Use intravenous Cardizem to titrate heart rate to below 110. If the patient's blood pressure drops, we can use of phenylephrine to keep systolic above 90. Consult with Cardiology. 3. Multiple infected decubitus ulcers. Continue local wound care as well as antibiotics. 4. Left heel osteomyelitis. Continue antibiotics. 5. Hypernatremia. Continue free water. Follow up on sodium level. 6. Hypokalemia. Replace potassium level. Check magnesium level. 7. Septic shock. Continue pressors as well as antibiotics. 8. Severe protein calorie malnutrition. Start Clinimix. 9. Deep vein thrombosis prophylaxis. The patient is on Xarelto. 10. Gastrointestinal prophylaxis. Proton pump inhibitor. cc: Mao Pete MD
--- NOTE | 2018-08-27 14:47 | GASTROENTEROLOGY CONSULTATION ---
DATE: 08/27/2018 REASON FOR CONSULTATION: Help with NG tube placement. HISTORY OF PRESENT ILLNESS: This is a 72-year-old male who was admitted on 08/11/2018. He is being treated for bilateral pneumonia, decubitus ulcers, urinary tract infection, sepsis, osteomyelitis. He is being followed by infectious disease. He is on antibiotic regimen. The patient had respiratory failure and had to be intubated. From nurse report, patient was extubated this morning. Prior to extubation, his oral gastric tube that was being used for feedings and medications became occluded. The tube was removed and a new tube tried to be replaced but met resistance. X-ray of the replacement tube on 08/26/2018, time 2147 last night, showed that the oral gastric tube was at the tip of the GE junction but not in the stomach. Tube was removed and a consult was placed for GI to assist with placement of tube. At the time of my evaluation, the patient was being bathed and cleaned up. I have spoken with his . Records from his hospitalization have been reviewed. Most of the past medical history has been obtained from the chart. PAST MEDICAL HISTORY: 1. 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 2. Aortic dissection repair. 3. Chronic atrial fibrillation. 4. Osteomyelitis of left hip. 5. Multiple pressure ulcers. SURGICAL HISTORY: Aortic dissection repair, left tibial fracture repair, tonsillectomy, diverting colostomy due to sacral decubitus. ALLERGIES: Zosyn, causing swelling. HOME MEDICATIONS PRIOR TO ADMISSION: LiquaCel 30 mL 3 times a day, Cordarone 200 mg daily, ascorbic acid 1000 mg daily, aztreonam 2 g IV 3 times a day, benzoate 200 mg 3 times a day, calcium and magnesium daily, vitamin D 5000 units daily, Cubicin 500 mg IV q.24 hours, Lexapro 10 mg daily, finasteride 5 mg daily, gabapentin 300 mg twice a day, probiotic twice a day, High Boost Protein twice a day, Singulair 10 mg every night, multivitamin daily, Prilosec 40 mg daily, Ditropan XL 10 mg daily, Xarelto 10 mg every night, Carafate 1 g twice a day, zinc 50 mg twice a day. SOCIAL HISTORY: History of tobacco use, quit 10 years ago. He is . No current tobacco use, alcohol use. Patient lives at home with his but has home health and goes to the wound center. REVIEW OF SYSTEMS: Per history of present illness. PHYSICAL EXAMINATION: Vital Signs: Temperature 97.8 degrees, pulse 103, respirations 18, blood pressure 112/73. HEENT: Patient was extubated this morning. He has high flow oxygen by mask in place. Abdomen: Soft. Colostomy bag in place. Extremities: Patient is paraplegic. LABORATORY: Hematology: WBC 18.74, hemoglobin 8.9, hematocrit 30.7, MCV 76.4, platelets 263,000. Chemistry: Sodium 151, potassium 3.4, chloride 109, CO2 30, BUN 30, creatinine 0.3, glucose 139. Total bilirubin 0.68, AST 30, ALT 47, alkaline phosphatase 157, albumin 2.6. Recent x-ray for orogastric tube placement from 08/27/2018 early this morning, the tube was near the GE junction but not in the stomach. The orogastric tube was removed when patient was extubated. ASSESSMENT: 1. Acute respiratory failure. Patient was on the ventilator and was extubated early this morning. 2. Sepsis. 3. Osteomyelitis. 4. Protein calorie malnutrition. 5. Atrial fibrillation. PLAN: Continue current management. Nurse tried placing nasogastric tube but met resistance. I have spoken with Dr. Moctezuma. He will try and place a tube later today. Further plans will be made as needed. Thank you for this consultation. Dictated by ANILA Monzon for Cheng Moctezuma MD cc: ANILA Garza MD [facility]
--- NOTE | 2018-08-27 14:51 | PROGRESS NOTE ---
DATE: 08/27/2018 ADDENDUM: Patient DNI per recommendation of . cc: Mao Pete MD [facility]
[2018-08-27] MEDS: LEVAQUIN 750 MG/D5W 750 MG/150 ML IVPB IV SCH (16:12)
--- NOTE | 2018-08-27 17:00 | Diag Imaging Result Doc PS360 ---
EXAM: CHEST-PORTABLE HISTORY: NG placement TECHNIQUE: Single view of the chest was performed portably. COMPARISON: 08/27/2018, 08/26/2018, FINDINGS: Limited view of the lower chest and upper abdomen for nasogastric tube placement. A feeding tube tip projects right of the spine. Recommend tube removal. There is bibasilar pulmonary consolidation left greater than right similar to prior. There are surgical clips in the midabdomen. IMPRESSION: Nasogastric tube inappropriately located to the right the spine with the tip projecting over the liver. Recommend tube removal. This report was discussed with Olga Augustin in the ICU on 08/27/2018 at 4:55 PM with read back verification. Electronically signed by Gabby Campos 08/27/2018 4:58 PM
[2018-08-27] MEDS: ATIVAN IV PRN (20:38)
--- NOTE | 2018-08-27 21:44 | PULMONOLOGY PROGRESS NOTE ---
DATE: 08/27/2018 SUBJECTIVE: The patient was evaluated earlier in the morning and extubated and re-evaluated later in the afternoon. He is doing well post extubation. He has no increased work of breathing. He can phonate. OBJECTIVE: Vital Signs: BP 109/65, heart rate 107, respiratory rate 28, oxygen saturation 97% on face mask. HEENT: Pupils are equal and reactive. Oropharynx appears clear without lesions. Neck: Supple. Chest: Reveals occasional rhonchi bilaterally. Cardiac exam: S1, S2. Abdomen: Soft with positive bowel sounds. Extremities: Unchanged. LABORATORIES: Chest x-ray this morning reveals decreased bibasilar effusions and infiltrates. Arterial blood gas #1 pH 7.60, pCO2 of 39, pO2 of 73. Arterial blood gas on spontaneous breathing trial: PH 7.57, pCO2 of 42, pO2 of 56. IMPRESSION: A 72-year-old with: 1. Infected left hip associated with osteomyelitis and osteonecrosis. 2. Decubitus ulcers. 3. Protein calorie malnutrition. 4. Ongoing vasopressor requirements for vascular insufficiency/septic shock. 5. Bilateral effusions with improvement. 6. Acute hypoxemic respiratory failure. DISCUSSION: A 72-year-old with problems outlined above. The patient was stronger this morning and appeared to be a candidate for extubation. He has done well following extubation. He has had a prolonged illness and continues to have significant hurdles associated with malnutrition, effusions, severe protein calorie malnutrition, and ongoing wound management issues. He is unlikely to clear his infected left hip joint and even an aggressive surgery such as disarticulation would require removal of portions of the osteomyelitic pelvis. The patient's and family all agree that he would not want to go back on mechanical ventilation. His code status has been addressed by the hospitalist. RECOMMENDATIONS: 1. Continue feeds as tolerated. 2. Continue oxygen and BiPAP. 3. End of life issues as per above. OVERALL PROGNOSIS: Poor. TIME SPENT: Critical care, 1 hour. cc: Haroldo Maciel MD
[2018-08-28] MEDS: ATROVENT NEB INH SCH ×6 (02:53→23:20)
[2018-08-28] MEDS: XOPENEX NEB INH SCH ×6 (02:53→23:21)
[2018-08-28] MEDS: DITROPAN PO SCH ×2 (03:31→09:43)
[2018-08-28] MEDS: ATIVAN IV PRN ×3 (03:31→16:37)
[2018-08-28] MEDS: LOTRIMIN 1% CREAM TOP SCH ×2 (03:36→10:00)
[2018-08-28] MEDS: CLINIMIX E 4.25%-5% SOLUTION 1,000 ML IV SCH ×3 (03:48→20:28)
[2018-08-28 04:52] LABS: ALLEN TEST YES; BE 12.4 mmoll (-3.0-3.0); BLOOD TYPE ARTERIAL; HCO3-(ACT) 34.5 mmoll (20.0-26.0); METHB 1.2 % (0.0-1.5); O2HB 93.2 % (95.0-99.0); PCO2(98.6) 46 mmHg (35-45); PO2(98.6) 68 mmHg (60-100); SAMPLE BLOOD; SAO2 96.5 % (95.0-100.0); THB 9.1 g/dL (11.5-17.4); pH(98.6) 7.51 (7.35-7.45)
[2018-08-28 04:55] LABS: MODALITY VENTILATOR
[2018-08-28 05:37] LABS: AGAP 9; ALB/GLOB RATIO 1.2; ALBUMIN 2.6 g/dL (3.5-5.0); ALKALINE PHOSPHATASE 133 U/L (32-122); BUN 32 mg/dL (8-22); CALCIUM 8.9 mg/dL (8.8-10.2); CHLORIDE 108 mmol/L (98-107); COSMO 306; CREATININE 0.3 mg/dL (0.7-1.2); ESTIMATED GFR > 60; GLUCOSE 150 mg/dL (70-104); GOT 31 U/L (10-34); GPT 39 U/L (10-44); POTASSIUM 4.2 mmol/L (3.5-5.1); SODIUM 149 mmol/L (136-145); TCO2 32 mmol/L (25-35); TOTAL BILIRUBIN 0.63 mg/dL (0.20-1.00); TOTAL PROTEIN 4.8 g/dL (6.3-8.3)
[2018-08-28] MEDS: PROTONIX IV SCH (05:52)
[2018-08-28] MEDS: SODIUM CHLORIDE 0.9% INJ SCH (05:52)
--- NOTE | 2018-08-28 07:01 | Diag Imaging Result Doc PS360 ---
EXAM: CHEST-PORTABLE 08/28/2018 HISTORY: NG placement TECHNIQUE: AP portable at 0501 COMMENT: There is hazy opacity in the lower lung [place] and small pleural effusions bilaterally. This is worse than on 08/27/2018. The endotracheal tube has been removed. The PICC line on the right remains. IMPRESSION: Worsened pulmonary edema and pleural effusions. Electronically signed by Kody Matias 08/28/2018 6:58 AM
[2018-08-28] MEDS: PULMICORT INH SCH ×2 (07:15→19:20)
[2018-08-28] MEDS: SOLU-CORTEF IV SCH ×2 (07:47→16:37)
[2018-08-28] MEDS: LOVENOX SUBQ SCH ×2 (07:48→19:41)
[2018-08-28] MEDS: MERREM 1 GM in NS 50 ML IV SCH ×2 (07:48→16:37)
[2018-08-28] MEDS: NEO-SYNEPHRINE 50 MG in NS 250 ML IV SCH ×2 (07:53→23:12)
[2018-08-28] MEDS: CARAFATE PO SCH (09:43)
[2018-08-28] MEDS: CORDARONE PO SCH (09:43)
[2018-08-28] MEDS: NEURONTIN PO SCH (09:44)
[2018-08-28] MEDS: MAALOX PLUS LIQUID PO SCH (09:44)
[2018-08-28] MEDS: PROSCAR PO SCH (09:44)
[2018-08-28] MEDS: VITAMIN D PO SCH (09:45)
[2018-08-28] MEDS: ZINC SULFATE PO SCH (09:45)
[2018-08-28] MEDS: SANTYL OINT TOP SCH (10:00)
--- NOTE | 2018-08-28 13:48 | INFECTIOUS DISEASE PROGRESS NO ---
DATE: 08/28/2018 PRESENT ILLNESS: The patient has bilateral pneumonia. There could well be a component of pulmonary venous congestion as well. He has multiple decubitus ulcers that are infected. He also has a septic hip arthritis and osteomyelitis. MEDICATIONS: This is the 8th day of treatment with meropenem. PHYSICAL EXAMINATION: Vital Signs: Temperature is 98 degrees, pulse is 90, respirations 24, blood pressure 117/74. General: This is an ill-appearing, elderly male. He is extubated today and he actually looks more comfortable than he did yesterday. Head, Eyes, Ears, Nose, and Throat: As mentioned above, the patient is extubated. There is no drainage coming from his nose or ears. Neck: No evidence of the patient having pain when I passively moved the patient's neck. Lungs: Clear to auscultation. Cardiovascular: Heart rate is regular. Abdomen: Soft and not tender. The patient's ostomy is functioning and his suprapubic catheter is not erythematous or purulent. Neurologic: The patient is lying in bed. He does not respond to verbal stimuli. LAB AND X-RAY: A blood gas today shows a pH of 7.51, a pO2 of 68, and a pCO2 of 46. Creatinine is 0.3. GFR is greater than 60. Chest x-ray shows worsening pulmonary edema/pneumonia as well as pleural effusion. ASSESSMENT AND PLAN: The patient has pneumonia and pulmonary venous congestion, as well as infected decubitus ulcers and septic hip arthritis, and osteomyelitis. I plan on continuing meropenem for treatment of those above-named entities. COMORBIDITIES: The patient is paraplegic from the waist distally. He is a cigarette smoker. He has COPD and gastroesophageal reflux disease. cc: Adán Guevara MD
[2018-08-28] MEDS ORDERED: DILAUDID IV PRN (17:02)
--- NOTE | 2018-08-28 18:14 | PROGRESS NOTE ---
DATE: 08/28/2018 SUBJECTIVE: Patient has been extubated. Has an oxygen mask on. Family present in the room. OBJECTIVE: Vital Signs: Temperature 97.6 degrees, pulse is 86, respiratory rate 21, blood pressure is 100/46, oxygen saturation 100%. HEENT: Atraumatic, normocephalic. Cardiovascular: S1, S2. Respiratory: Has evidence of good entry bilaterally. Abdomen: Soft. Ostomy present. Extremities: The patient has 2+ edema in both lower extremities. Central nervous system: The patient is lethargic and poorly responsive. LABORATORY DATA: ABG, 7.51/46/58/96.5%. Chemistries: Sodium is 149, potassium 4.2, bicarb is 32, BUN is 32, creatinine 0.3. ASSESSMENT AND PLAN: 1. Acute respiratory failure. The patient is status post extubation. Maintain patient on oxygen supplementation. Treat primary lung condition, specifically pulmonary edema as well as pneumonia. Pulmonary team following. 2. Atrial fibrillation. Continue Cardizem infusion. Keep heart rate less than 100. Use phenylephrine to give systolic blood pressure above 90 if needed. 3. Multiple infected decubitus ulcer. Continue local wound care as well as antibiotics. 4. Left heel osteomyelitis. Continue antibiotics. 5. Hypernatremia. Continue free water . Follow up on sodium level. 6. Septic shock. Continue pressors as well as antibiotics. 7. Severe protein calorie malnutrition. Clinimix started. 8. Deep vein thrombosis prophylaxis. Xarelto. 9. Gastrointestinal prophylaxis. PPI. cc: Mao Pete MD MTDD
--- NOTE | 2018-08-28 20:35 | PULMONOLOGY PROGRESS NOTE ---
DATE: 08/28/2018 SUBJECTIVE: The patient is arousable to alert. He has a very weak voice. He has a poor cough effort. OBJECTIVE: Vital Signs: Blood pressure 103/51, heart rate 94, respiratory rate 22, oxygen saturation 100%. HEENT: Pupils are equal and reactive. Oropharynx is clear and dry. Neck: Supple. Chest: Reveals rhonchi bilaterally. Cardiac: Regular rate. Normal S1, normal S2. Abdomen: Soft, with positive bowel sounds. Extremities: Flaccid below the waist. LABORATORIES: Sodium 149, potassium 4.2, chloride 108, bicarbonate 32, BUN 32, creatinine 0.3. Arterial blood gas: pH 7.51, pCO2 of 46, pO2 of 68. Chest x-ray reveals shallow inspiration with increased effusions and infiltrates in the lung bases. IMPRESSION: A 72-year-old with: 1. Acute hypoxemic respiratory failure. 2. Infected left hip associated with osteomyelitis and osteonecrosis. 3. Decubitus ulcers. 4. Severe protein calorie malnutrition. 5. Bilateral pleural effusions. 6. Ongoing basal pressure requirements/septic shock. DISCUSSION: A 72-year-old with problems as outlined above. The patient has tolerated extubation for greater than 24 hours, but remains weak and has a very poor cough effort. I suspect that he will have ongoing slow decline. RECOMMENDATION: 1. Continue oxygen and cycle BiPAP. 2. Continue tube feeds as tolerated. 3. Continue antibiotics per Infectious Disease. 4. DNR level 2. 5. Prognosis is very poor and patient is unlikely to survive long-term. cc: Haroldo Maciel MD
[2018-08-29] MEDS: ATIVAN IV PRN ×9 (00:25→23:53)
[2018-08-29] MEDS: MERREM 1 GM in NS 50 ML IV SCH ×2 (00:28→08:01)
[2018-08-29] MEDS: SOLU-CORTEF IV SCH ×2 (00:29→08:00)
[2018-08-29] MEDS: ZINC SULFATE PO SCH ×2 (00:30→08:03)
[2018-08-29] MEDS: NEURONTIN PO SCH ×2 (00:30→08:02)
[2018-08-29] MEDS: CARAFATE PO SCH ×2 (00:31→08:02)
[2018-08-29] MEDS: DITROPAN PO SCH ×2 (00:31→08:02)
[2018-08-29] MEDS: LOTRIMIN 1% CREAM TOP SCH ×2 (00:34→08:01)
[2018-08-29] MEDS: ATROVENT NEB INH SCH ×2 (03:18→07:23)
[2018-08-29] MEDS: XOPENEX NEB INH SCH ×2 (03:18→07:23)
[2018-08-29 05:22] LABS: ALLEN TEST YES; BE 9.7 mmoll (-3.0-3.0); BLOOD TYPE ARTERIAL; HCO3-(ACT) 32.5 mmoll (20.0-26.0); METHB 1.2 % (0.0-1.5); O2(CT) 12.2 mL/dL (15.0-23.0); O2HB 93.8 % (95.0-99.0); PCO2(98.6) 46 mmHg (35-45); PO2(98.6) 77 mmHg (60-100); SAMPLE BLOOD; SAO2 97.1 % (95.0-100.0); THB 9.2 g/dL (11.5-17.4); pH(98.6) 7.48 (7.35-7.45)
[2018-08-29 05:25] LABS: MODALITY COOL AEROSOL
[2018-08-29] MEDS: PROTONIX IV SCH (05:29)
[2018-08-29] MEDS: SODIUM CHLORIDE 0.9% INJ SCH (05:30)
[2018-08-29 05:48] LABS: BASO# 0.01 X1000 (0.0-0.2); EOS# 0.02 X1000 (0.0-0.7); EOS% 0.1 % (0.0-10.0); HEMATOCRIT 29.1 % (42.0-52.0); HEMOGLOBIN 8.2 g/dL (14.0-18.0); IMM GRAN# 0.15 X1000 (0.0-0.04); IMM GRAN% 0.7 % (0.0-0.5); LYMPH# 0.36 X1000 (1.2-3.4); LYMPH% 1.7 % (20.5-51.1); MCHC 28.2 g/dL (33-37); MONO# 0.94 X1000 (0.11-0.59); MONO% 4.4 % (1.7-9.3); NEUT# 20.12 X1000 (1.4-6.5); NEUT% 93.1 % (42.2-75.2); PLT 190 X1000 (130-400); RBC 3.73 XMIL (4.7-6.1); RDW 24.1 % (11.5-14.5)
[2018-08-29 05:59] LABS: AGAP 8; ALBUMIN 2.4 g/dL (3.5-5.0); ALKALINE PHOSPHATASE 120 U/L (32-122); BUN 35 mg/dL (8-22); CALCIUM 8.8 mg/dL (8.8-10.2); CHLORIDE 109 mmol/L (98-107); COSMO 303; CREATININE 0.2 mg/dL (0.7-1.2); ESTIMATED GFR > 60; GLUCOSE 140 mg/dL (70-104); GOT 33 U/L (10-34); GPT 34 U/L (10-44); POTASSIUM 4.2 mmol/L (3.5-5.1); SODIUM 147 mmol/L (136-145); TCO2 30 mmol/L (25-35); TOTAL BILIRUBIN 0.52 mg/dL (0.20-1.00); TOTAL PROTEIN 4.9 g/dL (6.3-8.3)
[2018-08-29 06:01] LABS: MAGNESIUM 2.4 mg/dL (1.5-2.7); PHOSPHORUS 3.3 mg/dL (2.7-4.5)
[2018-08-29] MEDS: CLINIMIX E 4.25%-5% SOLUTION 1,000 ML IV SCH (06:26)
[2018-08-29] MEDS: PULMICORT INH SCH (07:23)
--- NOTE | 2018-08-29 07:40 | Diag Imaging Result Doc PS360 ---
EXAM: CHEST-PORTABLE INDICATION: NG placement TECHNIQUE: One view COMPARISON: 08/28/2018 FINDINGS: The right PICC line is in stable position. Infiltrates at the mid and lower lung zones bilaterally are essentially stable indicating pulmonary edema. There are bilateral small pleural effusions that are essentially stable given slight differences in positioning. No new consolidation is identified. Cardiac silhouette is stable. IMPRESSION: Essentially stable chest. Electronically signed by Igor Mendoza 08/29/2018 7:38 AM
[2018-08-29] MEDS: LOVENOX SUBQ SCH (08:00)
[2018-08-29] MEDS: SANTYL OINT TOP SCH (08:01)
[2018-08-29] MEDS: CORDARONE PO SCH (08:02)
[2018-08-29] MEDS: MAALOX PLUS LIQUID PO SCH (08:02)
[2018-08-29] MEDS: VITAMIN D PO SCH (08:03)
[2018-08-29] MEDS: PROSCAR PO SCH (08:03)
[2018-08-29] MEDS: MORPHINE IV PRN ×7 (10:40→20:45)
--- NOTE | 2018-08-29 11:02 | PROGRESS NOTE ---
DATE: 08/29/2018 SUBJECTIVE: The patient is resting on his bed. Has an oxygen mask in place. OBJECTIVE: Vital signs: Vital signs are as follows: Temperature 98.6 degrees, pulse 92, respirations 20, blood pressure 109/57, oxygen absent. HEENT: Atraumatic, normocephalic. Cardiovascular system: S1, S2. Respiratory system: No rales or rhonchi noted. Abdomen: Soft, nontender. Extremities: Has edema in both lower extremities. Central nervous system: The patient is lethargic, has paraplegia. ASSESSMENT: 1. Acute respiratory failure. 2. Atrial fibrillation. 3. Multiple infected decubitus ulcer. 4. Left heel osteomyelitis. 5. Hyponatremia. 6. Septic shock. 7. Severe protein calorie malnutrition. PLAN: Discuss with the patient's family; they want to terminate care. Want patient to be only on comfort measures. The patient's family's wishes will be honored. Will use morphine 2 mg q. 1 hour p.r.n. for pain and also Ativan 2 mg IV q. 1 hour p.r.n. for agitation. cc: Mao Pete MD
--- NOTE | 2018-08-29 14:08 | GASTROENTEROLOGY PROGRESS NOTE ---
DATE: 08/29/2018 SUBJECTIVE: Patient was seen on rounds today. Family was at the bedside. They report they have decided to terminate any further intervention, and make the patient comfort measures only. GI will sign off. Please re-consult if indicated. Dictated by ANILA Monzon for Cheng Moctezuma MD cc: ANILA Garza MD
[2018-08-30 01:27] VITALS: BP 43/25
--- NOTE | 2018-09-15 08:22 | DISCHARGE SUMMARY ---
ADMISSION DATE: 08/11/2018 DISCHARGE DATE: 08/30/2018 FINAL DIAGNOSES: 1. Acute respiratory failure. 2. Atrial fibrillation, multiple. 3. Infected decubitus ulcer. 4. Left heel osteomyelitis. 5. Hyponatremia. 6. Septic shock. 7. Protein calorie malnutrition. 8. Pneumonia. 9. Hypernatremia. 10. Tobacco use history. 11. Chronic obstructive pulmonary disease. 12. Gastroesophageal reflux disease. 13. Paraplegia. 14. History of aortic dissection. 15. Anemia of chronic disease. HOSPITAL COURSE: Mr. Augustus Schulte is a 72-year-old male who presented to the hospital because of shortness of breath as well as cough. He was diagnosed as having pneumonia and was started on antibiotics. The patient was noted to have multiple pressure ulcers to the sacrum as well as the left ankle and also he is paraplegic. He does have a history of atrial fibrillation as well as history of aortic dissection. The patient was noted to be in septic shock requiring pressors. The patient later went into respiratory failure and required intubation. The patient was seen by the Pulmonary Team with regards to his pulmonary condition and was also seen by the Cardiology Team with regards to atrial fibrillation. A surgical evaluation was done for his chronic decubitus wounds and antibiotic management was done by Dr. Adán Guevara, Infectious Disease. The patient was subsequently extubated. Post extubation, patient's family decided to terminate care and requested for only comfort measures. The patient's family wishes were honored. The patient subsequently on 08/30/2018. cc: Mao Pete MD
== END 2018-08-30 00:31 | disposition expired | DRG 870 ==
LOC: DIRADM 13:25 → SUATTDRO 13:25 → ICU 15:30
PROVIDERS: ATTEND Internal Medicine
CPT/HCPCS: 31500; 36430; 36569; 71010; 71045; 73500; 73501; 74000; 74018; 74019; 74020; 74176; 80048; 80053; 81001; 82533; 82550; 82784; 82805; 83605; 83735; 84100; 84132; 84443; 84484; 85014; 85018; 85025; 85610; 85651; 85730; 86140; 86850; 86900; 86901; 86920; 87040; 87070; 87077; 87088; 87186; 87205; 89220; 93005; 93010; 93306; 94002; 94003; 94640; 94660; 94761; 94799; 97162; A9270; C9113; J0696; J1160; J1650; J1720; J1940; J1956; J2020; J2060; J2185; J2270; J2370; J2765; J3475; J3480; J7030; J7040; J7050; J7060; J7070; P9016; P9047; S0073; S0138; S0164